=== PATIENT | female | born 1945 | race Caucasian/White ===

== ENCOUNTER 2019-12-22 10:20 | Outpatient (CLI) | payer MEDICARE, MEDICAID, SELFPAY ==
--- NOTE | ~2019-12-22 | XR_ITS ---
EXAMINATION: XR ankle LT min 3V DATE: 12/22/2019 10:38 INDICATION: Left ankle pain TECHNIQUE: Anteroposterior, lateral, mortise, and additional oblique view of the ankle were obtained. COMPARISON: None. FINDINGS: . There is no fracture, dislocation, or subluxation. The bones, soft tissues, and joint spa braden are normal. IMPRESSION: 1. No acute osseous abnormality. Reviewed, dictated and finalized at location A.
--- NOTE | ~2019-12-22 | US_ITS ---
EXAMINATION: US venous doppler [facility] DATE: 12/22/2019 11:11 INDICATION: Left leg pain TECHNIQUE: Darnell scale images without and with compression and Doppler images of the left lower extrem ity veins were obtained. COMPARISON: None. FINDINGS: The left common femoral vein, profunda femoral vein, femoral vein, popliteal vein, peroneal trunk, posterior tibial veins, and greater saphenous vein are patent. There are superficial left leg veins which are patent and compressible in the area of palpable concern. IMPRESSION: 1. Patent left lower extremity veins. No evidence of deep venous thrombosis. Reviewed, dictated and finalized at location A.
== END 2019-12-22 10:21 | disposition home or self-care (01) ==
LOC: CHSIMG 10:24
PROVIDERS: PCP Family Medicine; Visit Provider Family Medicine
DX: M79.662 Pain in left lower leg (principal); M25.579 Pain in unspecified ankle and joints of unspecified foot
CPT/HCPCS: 73610; 93971

== ENCOUNTER 2020-01-19 12:36 | Inpatient (IN) | payer MEDICARE, MEDICAID, SELFPAY ==
--- NOTE | ~2020-01-19 | CT_ITS ---
EXAMINATION: CTA [facility] DATE: 01/21/2020 13:17 INDICATION: Significant peripheral arterial occlusive disease to the left lower limb with nonhealing arterial ulcer. TECHNIQUE: Computed tomographic angiography (CTA) of the pelvis, and both lower extremities was perfo rmed with 150 mL Omnipaque 350 intravenous contrast. Automated exposure control and iterative reconst ruction technique were employed. The dose-length product was 440 mGy-cm. COMPARISON: None. FINDINGS: PELVIC VASCULATURE: No appreciable atherosclerotic plaque or stenosis in the bilateral common and external iliac arteries . RIGHT LOWER EXTREMITY: No evident atherosclerotic plaque or hemodynamically significant stenosis along the arteries of the r ight lower limb with three-vessel runoff to the ankle. LEFT LOWER EXTREMITY: No evident atherosclerotic plaque or hemodynamically significant stenosis along the arteries of the left lower limb with three-vessel runoff below the ankle.. ADDITIONAL FINDINGS: Prominent and relatively symmetric scattered muscular atrophy involving the bilateral gluteus minimus , left gluteus medius, bilateral quadriceps muscles most prominently the vastus lateralis muscles, bi lateral hamstring muscles and medial heads of the bilateral gastrocnemius muscles. There is soft tiss ue swelling about the left ankle with prominent stranding and catheters fat pad. There is contrast-en hancement of early draining veins at the left ankle and distal lower leg likely related to hyperemia associated with reported cellulitis. No abscess. No evident cortical erosions to suggest osteomyeliti s. Left total knee arthroplasty. No evident knee or ankle joint effusions. IMPRESSION: 1. No evident atherosclerotic plaque or stenosis in the visualized pelvis or bilateral lower limbs w ith bilateral three-vessel runoff to the ankle. Reviewed, dictated and finalized at location A. IMPRESSION: 1. No evident atherosclerotic plaque or stenosis in the visualized pelvis or b ilateral lower limbs with bilateral three-vessel runoff to the ankle.
--- NOTE | ~2020-01-19 | XR_ITS ---
EXAMINATION: XR ankle LT min 3V DATE: 01/21/2020 15:04 INDICATION: Nonhealing ulcer at the lateral left ankle TECHNIQUE: Anteroposterior, oblique, mortise, and lateral views of the left ankle were obtained. COMPARISON: 12/22/2019 FINDINGS: Bone alignment is normal. No fracture. No cortical erosions or periosteal reaction to suggest osteomy elitis. Small bone island at the posterior aspect of the distal tibia. Joint spaces appear relatively preserved. No ankle joint effusion. Increased density in the region of Kager fat pad suggesting soft tissue edema. No evident soft tissue gas. IMPRESSION: 1. No acute osseous abnormality. Specifically no cortical erosions or periosteal reaction to suggest osteomyelitis. Reviewed, dictated and finalized at location A. IMPRESSION: 1. No acute osseous abnormality. Specifically no cortical erosions or periostea l reaction to suggest osteomyelitis.
--- NOTE | ~2020-01-19 | US_ITS ---
EXAMINATION: US venous doppler [facility] DATE: 01/19/2020 13:22 INDICATION: Left lower limb pain. TECHNIQUE: Grayscale ultrasound images without and with compression and Doppler ultrasound images of the left lower extremity veins were obtained. COMPARISON: Ultrasound 12/22/2019 FINDINGS: The visualized portions of left common femoral vein, profunda (deep) femoral vein, femoral vein, popl iteal vein, peroneal veins, posterior tibial veins, and greater saphenous vein outflow are patent. IMPRESSION: 1. No deep venous thrombosis. Reviewed, dictated and finalized at location A.
--- NOTE | ~2020-01-19 | US_ITS ---
EXAMINATION: US arterial duplex LE DATE: 01/20/2020 13:12 INDICATION: Peripheral arterial disease. TECHNIQUE: Segmental pressures and plethysmographic and Doppler waveforms of the brachial and lower e xtremity arteries were obtained. COMPARISON: None. FINDINGS: Right and left brachial artery pressures of 160 mm Hg and 162 mm Hg, respectively, are concordant (no rmal difference <= 30 mmHg). The right high-thigh pressure index is 1.17 (normal > 1.2). The right ankle-brachial index (RAND) is 1 .29 (normal >= 0.9-1.0). The right great toe-brachial index (TBI) is 0.67 (normal >= 0.65). The right lower extremity segmental pressure gradients are normal (normal gradients <= 20-30 mmHg between delfina cent levels on the same leg or the same levels on the two legs). Arterial Doppler waveforms are bipha sic from common femoral artery to the ankle. The left high-thigh pressure index is 1.26. The left RAND is 1.16. The left TBI is 0.49. The left lowe r extremity segmental pressure gradients are normal. Arterial Doppler waveforms are biphasic from com mon femoral artery to the ankle. IMPRESSION: 1. Mildly decreased left-sided TBI and normal left-sided RAND, consistent with left-sided arterial occ lusive disease. Note that RAND may be overestimated if arteries are calcified. Reviewed, dictated and finalized at location A. IMPRESSION: 1. Mildly decreased left-sided TBI and normal left-sided RAND, consistent with l eft-sided arterial occlusive disease. Note that RAND may be overestimated if art eries are calcified.
--- NOTE | ~2020-01-19 | NM_ITS ---
EXAMINATION: NM bone 3 phase DATE: 01/20/2020 16:30 INDICATION: Cellulitis at the posterior left calf and at the left ankle TECHNIQUE: The 3.9 mCi Tc-99m HDP by intravenous route. Scintigrams of the bilateral lower legs were obtained in angiographic, blood pool, and delayed phases. COMPARISON: Lower extremity CTA dated 01/21/2020 FINDINGS: Asymmetric diffuse increased soft tissue activity on the angiographic an immediate blood pool images throughout the left lower leg. On delayed images there is a photopenic defect at the right knee consi stent with a total knee arthroplasty. No suspicious foci of delayed bone uptake to suggest osteomyeli tis. Of note the distalmost tibia and fibula including the medial and lateral malleoli are excluded f rom the [id number]. IMPRESSION: 1. Asymmetric increased soft tissue uptake throughout the left lower leg consistent with inflammatio n of provided history of cellulitis. No discrete foci of abnormal bone uptake to suggest osteomyeliti s however the region of the medial and lateral malleoli are excluded from the [id number]. Reviewed, dictated and finalized at location A. IMPRESSION: 1. Asymmetric increased soft tissue uptake throughout the left lower leg consi stent with inflammation of provided history of cellulitis. No discrete foci of abnormal bone uptake to suggest osteomyelitis however the region of the medial and lateral malleoli are excluded from the [id number].
--- NOTE | ~2020-01-19 | US_ITS ---
EXAMINATION: US carotid duplex BI DATE: 01/20/2020 13:13 INDICATION: Vision disturbance. Headache. TECHNIQUE: Grayscale, color Doppler, and pulsed Doppler images of the cervical carotid arteries were obtained. The degree of vessel stenosis is placed in one of the following categories: normal, <50%, 5 0-69%, >=70% but less than near-occlusion, near-occlusion, or total occlusion. Note that percent sten osis relative to normal distal artery lumen diameter is indirectly measured from velocity measurement s as described by King, et al. Radiology 2003; 229:340-346. COMPARISON: None. FINDINGS: RIGHT: The right common carotid artery (CCA) peak systolic velocity (PSV) is 74 cm/s. The right internal car otid artery (ICA) PSV is 85 cm/s. The right ICA end-diastolic velocity (EDV) is 28 cm/s. The right IC A/CCA PSV ratio is 1.2. Grayscale and color Doppler images yield an estimate of <50% diameter reducti on from plaque in the ICA. There is antegrade flow in the right vertebral artery. LEFT: The left CCA PSV is 59 cm/s. The left ICA PSV is 48 cm/s. The left ICA EDV is 15 cm/s. The left ICA/C CA PSV ratio is 0.8. Grayscale and color Doppler images yield an estimate of <50% diameter reduction from plaque in the ICA. There is antegrade flow in the left vertebral artery. IMPRESSION: 1. <50% stenosis in the right internal carotid artery. 2. <50% stenosis in the left internal carotid artery. Reviewed, dictated and finalized at location A.
[2020-01-19 12:57] VITALS: BP 152/78; PULSE 77; RESP 24; TEMP 37.1; O2SAT 98
[2020-01-19 13:53] LABS: Basophils Absolute Auto 0.03 K/mm3 (0.00-0.10); Basophils Percent Auto 0.4 % (0.0-1.0); Eosinophils Absolute Auto 0.03 K/mm3 (0.02-0.50); Eosinophils Percent Auto 0.4 % (1.0-6.0); Hematocrit 36.3 % (35.0-42.0); Immature Granulocyte Absolute 0.03 K/mm3 (0.00-0.00); Immature Granulocyte Percent A 0.4 % (0.0-0.0); Lymphocytes Absolute Auto 0.56 K/mm3 (1.10-4.50); Lymphocytes Percent Auto 6.8 % (18.0-42.0); Mean Corpuscular HGB Conc 33.1 g/dL (32.0-36.0); Mean Corpuscular Hemoglobin 33.4 pg (27.0-31.0); Mean Corpuscular Volume 101.1 fL (78.0-102.0); Mean Platelet Volume 9.4 fl (9.2-11.8); Monocytes Absolute Auto 0.56 K/mm3 (0.10-0.90); Monocytes Percent Auto 6.8 % (2.0-11.0); Neutrophils Percent Auto 85.2 % (50.0-70.0); Platelet Count Result 258 K/mm3 (150-420); Red Blood Count 3.59 M/mm3 (4.20-5.40); Red Cell Distribution Width 13.2 % (11.6-14.4); White Blood Count 8.2 K/mm3 (4.8-10.8)
[2020-01-19] MEDS: CLINDAMYCIN 600 MG/D5W 50 ML 600 MG/50 ML PIGGYBACK 100 MG IVPB ×2 (13:57→21:30)
[2020-01-19 14:07] LABS: Alanine Aminotransferase 31 U/L (14-59); Alkaline Phosphatase 100 U/L (46-116); Anion Gap 16.1 mmol/L (7-16); Aspartate Amino Transferase 29 U/L (15-37); Bilirubin,Total 0.3 mg/dL (0.00-1.00); Blood Urea Nitrogen 26 mg/dL (7-18); Calcium 9.6 mg/dL (8.5-10.1); Carbon Dioxide 25 mmol/L (21-32); Chloride 103 mmol/L (98-108); Estimated CRCL calculation 49 ml/min; Estimated Glomerular Filt Rate > 60; Glucose 93 mg/dL (70-99); Osmolality Calculated 294 mOsm/kg (285-295); Potassium 4.1 mmol/L (3.5-5.1); Sodium 140 mmol/L (136-145); Total Protein 7.4 g/dL (6.4-8.2)
[2020-01-19 14:09] LABS: Lactic Acid 0.8 mmol/L (0.4-2.0)
--- NOTE | 2020-01-19 14:29 | ED.GENADULT ---
HPI - General Adult General Chief complaint: Extremity Injury, Lower Stated complaint: ambulance Source: patient and EMS Mode of arrival: EMS Limitations: no limitations History of Present Illness HPI narrative: This is a 74-year-old female that presents via EMS with left lower extremity pain with calf tenderness and left lower extremity redness warmth and tenderness, has a history of a wound to her left lower extremity which appears to be healing well although despite being on p.o. clindamycin the patient has some left leg continues to be warm red and swollen and tender. Patient while here in the emergency department had a venous Doppler which showed no acute DVT. Patient currently is afebrile no shortness of breath. The patient has a history of hypothyroidism and COPD and rheumatoid arthritis. Onset (ago): day(s) Location: left and lower extremity Severity: mild Quality: aching Relieving factors: none Exacerbating factors: none Associated symptoms: denies other symptoms Related Data Home Medications Medication Instructions Recorded Confirmed calcium carbonate 600 mg calcium 600 mg PO BID 08/02/19 01/19/20 (1,500 mg) tablet cholecalciferol (vitamin D3) 10 400 unit PO BID cap 08/02/19 01/19/20 mcg (400 unit) capsule folic acid 1 mg tablet 1 mg PO DAILY 08/02/19 01/19/20 meloxicam 15 mg tablet 15 mg PO DAILY 08/02/19 01/19/20 methotrexate sodium 2.5 mg tablet 10 mg PO BID tablet 08/02/19 01/19/20 prednisone 2.5 mg tablet 2.5 mg PO DAILY 08/02/19 01/19/20 ranitidine HCl 150 mg capsule 150 mg PO BID cap 08/02/19 01/19/20 triamcinolone acetonide 0.1 % 1 applic TOPICAL DAILY gm 08/02/19 01/19/20 topical cream Allergies Allergy/AdvReac Type Severity Reaction Status Date / Time amoxicillin [Augmentin] Allergy Intermediate Unknown Verified 01/13/20 15:24 clavulanic acid [Augmentin] Allergy Intermediate Unknown Verified 01/13/20 15:24 Sulfa (Sulfonamide Allergy Unknown Unknown Verified 01/13/20 15:24 Antibiotics) Sulfonamides Allergy Intermediate Unknown Uncoded 09/28/19 11:01 Review of Systems Review of Systems: All systems reviewed & are unremarkable except as noted in HPI and below PMFSH Past Medical History Medical History Cervical arthritis Chronic low back pain Hypothyroidism Iron deficiency anemia Osteopenia Rheumatoid arthritis Family History Family History Mother Hypertension Brother Hypertension Other Diabetes mellitus Social History Social History Smoking status: Never smoker Alcohol intake: never Exam Const: General: no acute distress Orientation/consciousness: patient oriented x3 HENMT: Head: normal to inspection Eyes: Conjunctivae: conjunctivae normal Pupils: Equal, round and reactive pupils present Neck: Neck: normal visual inspection Chest: Chest palpation & inspection: normal inspection of the chest Resp: Effort & Inspection: normal respiratory effort Cardio: Rate: regular rate Rhythm: regular rhythm GI: GI Palp: Yes Soft to palpation Skin: General skin exam: normal color Rashes: no rashes Wounds: wounds noted Other: Wound on her left Achilles area appears closed with no drainage Um although the lower extremity is warm red and tender to touch with some calf tenderness with palpation Extrem: General: normal to inspection Psych: Appearance: grossly normal Mental Status: mental status grossly normal Course Vital Signs Vital signs: Vital Signs Temperature 37.1 C 01/19/20 12:57 Pulse Rate 77 01/19/20 12:57 Respiratory Rate 24 H 01/19/20 12:57 Blood Pressure 152/78 H 01/19/20 12:57 Pulse Oximetry 98 01/19/20 12:57 Temperature 37.1 C 01/19/20 12:57 Pulse Rate 77 01/19/20 12:57 Respiratory Rate 24 H 01/19/20 12:57 Blood Pressure 152/78 H 01/19/20 12:
--- NOTE | 2020-01-19 15:00 | PC.NURSE ---
Called for bed on second floor, pt to go to room 227.
[2020-01-19 15:02] VITALS: BP 151/69; PULSE 97; O2SAT 98
--- NOTE | 2020-01-19 15:45 | PC.NURSE ---
No change in pt status, pt resting comfortably on stretcher. Awaiting to give report, RN unavailable.
--- NOTE | 2020-01-19 16:00 | PM.IMHP ---
H&P: HPI History of Present Illness Chief complaint: ambulance Narrative: Laquita Mcfarlane is a 74 year old female admitted today via ambulance complaining of lower extremity injury to left leg. Laquita presented via EMS with left lower extremity pain with calf tenderness and left lower extremity redness warmth and tenderness. She has a history of a wound to her left lower extremity which appeared to be healing well. But despite taking her oral clindamycin that she was started on Thursday evening, the patient's left leg continues to be warm, red, swollen and tender. At admission today, the emergency department had a venous Doppler which showed no acute DVT. Patient currently is afebrile with no shortness of breath. The patient has a history of hypothyroidism, COPD and rheumatoid arthritis. The patient claimed that her left calf was extremely swollen and her left leg was extremely swollen and sore the day before, but at this time her left leg is actually very tight and small. She describes her pain as mild and achy, except to the touch within the pain becomes worse and severe. She does have a significant history of rheumatoid arthritis and has had multiple episodes of wounds that seem to heal and then not heal to this area and this leg. This leg also appears to be much smaller in size particularly around the left ankle and left calf lower calf area; Her left lower leg almost has a contracted or scleroderma appearance to it. I also have noticed that her pedal pulse is is significantly weaker on the left, 1+; verses the 3-4+ bounding pulse that I have palpated on the right pedal pulse. There is also no hair growth noted to this left lower extremity. Due to concerns for osteomyelitis and or septic arthritis, I have ordered a nuclear medicine bone scan of 3 phase, as well as an arterial Doppler study on both lower extremities, will continue her on IV clindamycin at this time for the next 2-3 days to see if she improves. She may need IV vanc. There is no wound or leg drainage or open area to culture so we will have to go off of blood and urine cultures. She denies any history of smoking, she is not on blood thinner anticoagulants at this time, she is not on an oral statin. Her white count is 8.2, her hemoglobin is 12, her hematocrit is 36, her platelets are 258, her potassium 4.1, her calcium 9.6, her lactic acid 0.8, her glucose 93. She was admitted with a diagnosis of cellulitis to the left lower extremity, with differential diagnoses including PA D, PVD, osteomyelitis, septic arthritis, scleroderma. Review of Systems Review of Systems: All systems reviewed & are unremarkable except as noted in HPI and below Constitutional: Constitutional: Reports as per HPI, Reports body ache(s), Denies difficulty sleeping, Denies excessive sweating, Denies fatigue, Denies headache(s), Denies increased appetite, Denies lethargy, Denies snoring, Reports weakness and Denies weight gain Eyes: Eyes: Reports as per HPI, Denies exophthalmos, Denies diplopia, Denies floaters and Denies loss of peripheral vision ENT: Reports as per HPI, Reports Normal hearing present, Denies dysphagia, Denies facial pain, Denies headache(s), Denies epistaxis, Denies nasal congestion, Denies nasal discharge, Denies odynophagia and Denies tinnitus Cardiovascular: Cardiovascular: Reports as per HPI Respiratory: Respiratory: Denies snoring Gastrointestinal: Gastrointestinal: Denies odynophagia Neurologic: Denies headache(s) Endocrine: Endocrine: Denies excessive sweating PMFSH Past Medical History Medical History Cervical arthritis Chronic low back pain Hypothyroidism Iron deficiency anemia Osteopenia Rheumatoid arthritis Family History Family History Mother Hypertension Brother Hypertension Other Diabetes mellitus Social History Social History (Reviewed 01/19/20
[2020-01-19 16:13] VITALS: BP 152/77; PULSE 75; RESP 16; O2SAT 97
[2020-01-19 16:39] VITALS: BMI 18.6
[2020-01-19 16:40] VITALS: BP 143/68; PULSE 72; RESP 18; TEMP 36.7; O2SAT 96
--- NOTE | 2020-01-19 16:43 | ADMGEN ---
This patient, Laquita Mcfarlane, was admitted to 2nd Floor Room 227-2. Patient/family oriented to hospital policies and general routines including ID bracelet, bed and alarms, visiting hours, pain management, procedures, bathroom and other care routines, personal items, smoking policy, room service/diet, and visiting hours. Valuables list has been completed. Information on how to activate the Rapid Response Team has been discussed. Patient/Family are encouraged to report perceived risks to care and to ask questions if they do not understand what they are told or what they should do.
[2020-01-19] MEDS: CHOLECALCIFEROL 400 UNITS TABLET (VIT D) PO (17:58)
[2020-01-19] MEDS: SODIUM CHLORIDE 0.9% IV 1,000 ML 100 ML IV CONT (17:58)
[2020-01-19 18:53] LABS: Thyroid Stimulating Hormone Reflex 0.73 u/IU/mL (0.36-3.74)
[2020-01-19 20:03] LABS: Uric Acid 4.8 mg/dL (2.6-6.0)
[2020-01-19] MEDS: FAMOTIDINE 20 MG TABLET PO (21:00)
[2020-01-19] MEDS: ONDANSETRON INJ 4 MG/2 ML VIAL IV PUSH (23:24)
[2020-01-19 23:30] VITALS: BP 151/72; PULSE 56; RESP 20; TEMP 36.9; O2SAT 96
[2020-01-20 04:00] VITALS: BP 140/61; PULSE 56; RESP 18; TEMP 36.6; O2SAT 96
[2020-01-20] MEDS: CLINDAMYCIN 600 MG/D5W 50 ML 600 MG/50 ML PIGGYBACK 100 MG IVPB ×3 (05:07→21:05)
[2020-01-20] MEDS: SODIUM CHLORIDE 0.9% IV 1,000 ML 100 ML IV CONT (05:07)
[2020-01-20] MEDS: LEVOTHYROXINE SODIUM 88 MCG TABLET PO (05:08)
[2020-01-20] MEDS: ONDANSETRON INJ 4 MG/2 ML VIAL IV PUSH (05:08)
[2020-01-20 05:57] LABS: Add Urine Microscopic? NO; Appearance Urine Clear (Clear); Bilirubin Urine Negative (Negative); Blood Urine Negative (Negative); Color Urine Yellow (Yellow); Glucose Urine UA Negative (Negative); Ketones Urine Negative (Negative); Leukocyte Esterase Ur Negative LEU/UL (Negative); Nitrate Urine Negative (Negative); Protein Urine Negative (Negative); Urobilinogen Urine 0.2 mg/dL (0.2-1.0)
[2020-01-20 07:28] LABS: Basophils Absolute Auto 0.02 K/mm3 (0.00-0.10); Basophils Percent Auto 0.4 % (0.0-1.0); Eosinophils Absolute Auto 0.15 K/mm3 (0.02-0.50); Eosinophils Percent Auto 2.8 % (1.0-6.0); Hematocrit 33.3 % (35.0-42.0); Hemoglobin 10.8 g/dL (11.7-13.8); Immature Granulocyte Absolute 0.03 K/mm3 (0.00-0.00); Immature Granulocyte Percent A 0.6 % (0.0-0.0); Lymphocytes Absolute Auto 0.93 K/mm3 (1.10-4.50); Lymphocytes Percent Auto 17.1 % (18.0-42.0); Mean Corpuscular HGB Conc 32.4 g/dL (32.0-36.0); Mean Corpuscular Hemoglobin 33.1 pg (27.0-31.0); Mean Corpuscular Volume 102.1 fL (78.0-102.0); Mean Platelet Volume 9.2 fl (9.2-11.8); Monocytes Absolute Auto 0.93 K/mm3 (0.10-0.90); Monocytes Percent Auto 17.1 % (2.0-11.0); Neutrophils Absolute Auto 3.4 K/mm3 (1.7-7.2); Platelet Count Result 218 K/mm3 (150-420); Red Blood Count 3.26 M/mm3 (4.20-5.40); Red Cell Distribution Width 13.2 % (11.6-14.4); White Blood Count 5.4 K/mm3 (4.8-10.8)
[2020-01-20 07:40] LABS: Alanine Aminotransferase 27 U/L (14-59); Albumin Level 3.1 g/dL (3.4-5.0); Alkaline Phosphatase 77 U/L (46-116); Anion Gap 12.8 mmol/L (7-16); Aspartate Amino Transferase 23 U/L (15-37); Bilirubin,Total 0.4 mg/dL (0.00-1.00); Blood Urea Nitrogen 20 mg/dL (7-18); Calcium 8.4 mg/dL (8.5-10.1); Carbon Dioxide 25 mmol/L (21-32); Chloride 108 mmol/L (98-108); Estimated CRCL calculation 50 ml/min; Estimated Glomerular Filt Rate > 60; Glucose 86 mg/dL (70-99); Osmolality Calculated 295 mOsm/kg (285-295); Potassium 3.8 mmol/L (3.5-5.1); Sodium 142 mmol/L (136-145)
[2020-01-20 07:42] LABS: Cholesterol 182 mg/dL (0-200); HDL Direct 79 mg/dL (40-60); LDL Cholesterol Calculated 93 mg/dL (<130); Triglycerides 52 mg/dL (0-150)
[2020-01-20 08:00] VITALS: BP 150/67; PULSE 66; RESP 18; TEMP 36.8; O2SAT 98
[2020-01-20] MEDS: FOLIC ACID 1 MG TABLET PO (09:04)
[2020-01-20] MEDS: predniSONE 5 MG TABLET 2.5 MG PO (09:04)
[2020-01-20] MEDS: CHOLECALCIFEROL 400 UNITS TABLET (VIT D) PO ×2 (09:04→17:27)
[2020-01-20] MEDS: CALCIUM CARBONATE (OSCAL) 500 MG TABLET PO ×2 (09:04→17:27)
[2020-01-20] MEDS: FAMOTIDINE 20 MG TABLET PO ×2 (09:04→21:05)
[2020-01-20] MEDS: TRIAMCINOLONE ACET 0.1% CREAM 15 GM TUBE 1 APPLIC TOPICAL (09:05)
[2020-01-20] MEDS: MELOXICAM 7.5 MG TABLET 15 MG PO (09:05)
--- NOTE | 2020-01-20 10:29 | ECHO_ITS ---
Patient Info Name: Laquita Mcfarlane Age: 74 years : 1945 Gender: Female Ht: 66 in Wt: 115 lbs BSA: 1.55 m2 Heart Rhythm: Sinus Rhythm Technical Quality: Fair Exam Date: 01/20/2020 12:09 PM Exam Location: [facility] Patient Status: Inpatient Admit Date: 01/19/2020 Staff Ordering Physician: Anali Guadalupe NP Chief Lock Operator: Bethany Bonner RDCS Attending Provider: Casey Puri MD Referring Physician: Collins RODRIGUEZ; Exam Type: CA echo doppler color flow Study Info Indications R00.1 - Bradycardia, unspecified Complete two-dimensional, color flow and Doppler transthoracic echocardiogram is performed. Strain analysis performed. History/Risk Factors Hypertension: No Dyslipidemia: No Congenital Heart Disease (CHD): No Peripheral Arterial Disease (PAD): No Myocardial Infarction (UT): No Chronic Lung Disease: No Obesity: No Renal Disease: No Coronary Artery Disease (CAD) No Congestive Heart Failure (CHF): No Cardiomyopathy/LV Systolic Dysfunction: No Diabetes Mellitus: No COPD: No Tobacco Use: Never Cerebrovascular Disease: No Family History: Diabetes Mellitus Deep Vein Thrombosis (DVT): None Dialysis: None Frailty Scale (CSHA): 6: Moderately Frail Summary 1. Left ventricular chamber dimension is normal. 2. Left ventricular systolic function is normal, estimated at 60-65%. 3. The left ventricular diastolic function is grade I diastolic dysfunction. 4. E/e' 7 is not elevated. 5. Global longitudinal strain is normal at -19.6%. 6. There is moderate aortic valve sclerosis. 7. There is mild aortic valve stenosis with a peak velocity of 209 cm/s, mean gradient of 10 mmHg, and aortic valve area of 1.9 cm2. 8. There is mild to moderate aortic valve regurgitation. 9. There is trace mitral valve regurgitation. 10. There is mild to moderate tricuspid valve regurgitation. 11. No pulmonary hypertension, estimated pulmonary arterial systolic pressure is 20 mmHg. Left Ventricle E/e' 7 is not elevated. Global longitudinal strain is normal at -19.6%. Left ventricular chamber dimension is normal. Left ventricular systolic function is normal, estimated at 60-65%. The left ventricular diastolic function is grade I diastolic dysfunction. Right Ventricle Right ventricular chamber dimension is normal. Right ventricular systolic function is normal. Left Atria Left atrial chamber dimension is normal. Right Atria Right atrial chamber dimension is normal. Aortic Valve The aortic valve is trileaflet. There is moderate aortic valve sclerosis. There is mild aortic valve stenosis with a peak velocity of 209 cm/s, mean gradient of 10 mmHg, and aortic valve area of 1.9 cm2. There is mild to moderate aortic valve regurgitation. Pulmonic Valve There is no pulmonic regurgitation. Mitral Valve There is no mitral valve stenosis. There is trace mitral valve regurgitation. Tricuspid Valve There is mild to moderate tricuspid valve regurgitation. No pulmonary hypertension, estimated pulmonary arterial systolic pressure is 20 mmHg. Pericardium/Pleural There is no pericardial effusion. Inferior Vena Cava Normal inferior vena cava with >50% collapse upon inspiration consistent with normal right atrial pressure, 5 mmHg. Aorta The aortic root size at the sinus of Valsalva is normal. Left Ventricular Outflow Tract
--- NOTE | 2020-01-20 11:10 | PC.NURSE ---
In imaging getting testing done
--- NOTE | 2020-01-20 12:10 | PC.NURSE ---
Remains in imaging getting testing
[2020-01-20 13:41] VITALS: RESP 18
--- NOTE | 2020-01-20 13:41 | PC.NURSE ---
Lunch tray to patient, not to return back to imaging until 2649
--- NOTE | 2020-01-20 14:28 | PM.IMPN ---
Progress Note: A&P Assessment and Plan (1) Atherosclerotic PVD with ulceration: Code(s): I70.209 - Unspecified atherosclerosis of [place] arteries of extremities, unspecified extremity; L98.499 - Non-pressure chronic ulcer of skin of other sites with unspecified severity <Anali Guadalupe NP - Last Filed: 01/20/20 16:14> Status: Acute <Anali Guadalupe NP - Last Filed: 01/20/20 16:14> Assessment and Plan: ED ordered a venous Doppler of LEFT only to rule out DVT - no DVT noted ordered an arterial Doppler study to rule in or out PAD - RESULTS are: The right high-thigh pressure index is 1.17 (normal > 1.2). The right ankle-brachial index (RAND) is 1.29 (normal >= 0.9-1.0). The right great toe-brachial index (TBI) is 0.67 (normal >= 0.65). The left high-thigh pressure index is 1.26. The left RAND is 1.16. The left TBI is 0.49. IMPRESSION: 1. Mildly decreased left-sided TBI and normal left-sided RAND, consistent with left-sided arterial occlusive disease. Note that RAND may be overestimated if arteries are calcified. Ordered an MRA of bilateral lower extremities with and without contrast for tomorrow morning. PT and OT ordered , and due to her possible left-sided PAD or occlusive disease she may benefit from Vascular physical therapy. checking lipid panel in the morning may benefit from having a daily statin, a daily aspirin, and Cilostazol started if PAD evident ECHO results are pending. Carotid Doppler results showed no significance stenosis of the right or left ICAs <Anali Guadalupe NP - Last Filed: 01/20/20 16:14> (2) Cellulitis: Qualifiers: Laterality: left Site of cellulitis: extremity Site of cellulitis of extremity: lower extremity Qualified Code(s): L03.116 - Cellulitis of left lower limb <Anali Guadalupe NP - Last Filed: 01/20/20 16:14> Code(s): L03.90 - Cellulitis, unspecified <Anali Guadalupe NP - Last Filed: 01/20/20 16:14> Status: Acute <Anali Guadalupe NP - Last Filed: 01/20/20 16:14> Assessment and Plan: ordered a nucleolar medicine bone scan with 3 phases to rule in or out osteomyelitis - in process - no results yet will continue IV clindamycin for another 1-3 days to see if wound improves, if not may need to switch to IV vanc patient denies any history of MRSA at this time no open area or evidence of drainage at this time in order to culture the wound will need to depend on blood cultures and urine cultures elevate use warm compresses or ice for comfort as needed ordered daily ESR and CRP levels <Anali Guadalupe NP - Last Filed: 01/20/20 16:14> (3) Rheumatoid arthritis: Code(s): M06.9 - Rheumatoid arthritis, unspecified <Anali Guadalupe NP - Last Filed: 01/20/20 16:14> Status: Acute <Anali Guadalupe NP - Last Filed: 01/20/20 16:14> Assessment and Plan: PT and OT evaluation ordered check calcium levels and vitamin-D levels and replenish as needed treat pain with Tylenol and or Motrin and/or lidocaine patches as needed use ice or warm compresses or heating pads as needed for comfort rule out gout, uric acid testing, uric acid level was 4.8 and within normal limits ordered daily ESR and CRP levels <Anali Guadalupe NP - Last Filed: 01/20/20 16:14> Subjective Date/time seen: 01/20/20 14:28 Laquita was doing well this morning when I went to see her. She was resting in bed comfortably. She had no complaints overnight or this morning. She was scheduled to have an RAND today, and echo, and carotid Dopplers completed today. Her left lower extremity today was much less reddened than it was yesterday, with the area remaining pink in color today. She continues to have pain at that location of her left lower extremity. And it continues to be quite warm to the touch. We will give the IV clindamycin another 24 h
[2020-01-20 15:43] VITALS: BP 136/61; PULSE 70; RESP 18; TEMP 37.3; O2SAT 95
--- NOTE | 2020-01-20 15:45 | PC.NURSE ---
returned to imaging
[2020-01-20 16:54] LABS: Iron 71 ug/dL (50-170); Percent Iron Saturation 28 % (12-57); Vitamin B12 569 pg/mL (193-986)
[2020-01-20 16:56] LABS: CRP < 0.2 mg/dL (0.0-0.9); Folic Acid > 20.0 ng/mL (8.6->20)
--- NOTE | 2020-01-20 17:07 | PC.NURSE ---
returned from imaging, up to commode, tolerated well, still unsteady on feet
[2020-01-20] MEDS: ENOXAPARIN 40 MG/0.4 ML SYRINGE SUB-Q (17:27)
[2020-01-20 17:46] LABS: Erythrocyte Sedimentation Rate 17 mm/hr (0-20)
[2020-01-20] MEDS: ACETAMINOPHEN 325 MG TABLET 650 MG PO (19:23)
--- NOTE | 2020-01-20 23:55 | PC.NURSE ---
Sleeping; head of bed elevated 20 degrees; Skin pink, respirations easy/unlabored. No distress noted.
[2020-01-21] VITALS: BP 130/47; PULSE 60; RESP 18; TEMP 36; O2SAT 98
--- NOTE | 2020-01-21 00:30 | PC.NURSE ---
Complains of feet being hot; No increase in redness to left leg. Patient took off non-skid socks, states too hot.
--- NOTE | 2020-01-21 04:35 | PC.NURSE ---
States would like Synthroid now as IV antiobiotic gives he a funny taste in her mouth and she is afraid it will make her sick on an empty stomach. Request Tylenol for arthritic pain to shoulder, neck and back states caused by all those tests I took yesterday
[2020-01-21] MEDS: LEVOTHYROXINE SODIUM 88 MCG TABLET PO (04:38)
[2020-01-21] MEDS: ACETAMINOPHEN 325 MG TABLET 650 MG PO (04:40)
[2020-01-21] MEDS: CLINDAMYCIN 600 MG/D5W 50 ML 600 MG/50 ML PIGGYBACK 100 MG IVPB ×2 (05:39→13:20)
[2020-01-21 05:41] LABS: Hematocrit 34.4 % (35.0-42.0); Hemoglobin 11.1 g/dL (11.7-13.8); Mean Corpuscular HGB Conc 32.3 g/dL (32.0-36.0); Mean Corpuscular Hemoglobin 32.8 pg (27.0-31.0); Mean Corpuscular Volume 101.8 fL (78.0-102.0); Mean Platelet Volume 9.6 fl (9.2-11.8); Platelet Count Result 222 K/mm3 (150-420); Red Blood Count 3.38 M/mm3 (4.20-5.40); Red Cell Distribution Width 13.2 % (11.6-14.4); White Blood Count 5.3 K/mm3 (4.8-10.8)
[2020-01-21 05:53] LABS: Anion Gap 12.2 mmol/L (7-16); Blood Urea Nitrogen 21 mg/dL (7-18); Calcium 8.7 mg/dL (8.5-10.1); Carbon Dioxide 27 mmol/L (21-32); Chloride 104 mmol/L (98-108); Estimated CRCL calculation 42 ml/min; Estimated Glomerular Filt Rate > 60; Glucose 78 mg/dL (70-99); Osmolality Calculated 290 mOsm/kg (285-295); Potassium 4.2 mmol/L (3.5-5.1); Sodium 139 mmol/L (136-145)
[2020-01-21 06:03] LABS: CRP < 0.2 mg/dL (0.0-0.9)
[2020-01-21 06:37] LABS: Erythrocyte Sedimentation Rate 26 mm/hr (0-20)
[2020-01-21 08:00] VITALS: BP 136/66; PULSE 61; RESP 16; TEMP 36.6; O2SAT 97
[2020-01-21] MEDS: FAMOTIDINE 20 MG TABLET PO (08:45)
[2020-01-21] MEDS: CHOLECALCIFEROL 400 UNITS TABLET (VIT D) PO (08:45)
[2020-01-21] MEDS: CALCIUM CARBONATE (OSCAL) 500 MG TABLET PO (08:45)
[2020-01-21] MEDS: FOLIC ACID 1 MG TABLET PO (08:45)
[2020-01-21] MEDS: predniSONE 5 MG TABLET 2.5 MG PO (08:45)
[2020-01-21] MEDS: MELOXICAM 7.5 MG TABLET 15 MG PO (08:46)
[2020-01-21] MEDS: TRIAMCINOLONE ACET 0.1% CREAM 15 GM TUBE 1 APPLIC TOPICAL (08:46)
--- NOTE | 2020-01-21 09:18 | ECG_ITS ---
Measurements Intervals [place] Rate: 58 P: 68 VT: 170 QRS: -18 QRSD: 85 T: 29 QT: 434 QTc: 427 Interpretive Statements SINUS BRADYCARDIA WITH MARKED SINUS ARRHYTHMIA ANTEROSEPTAL INFARCT, AGE INDETERMINATE ABNORMAL ECG Electronically Signed On 01-23-2020 7:33:34 CDT by Patricio Bowers D.O.
--- NOTE | 2020-01-21 10:26 | PM.DS ---
DS: Diagnosis Admitting Diagnosis Admitting Diagnosis: Unspecified atherosclerosis of [place] arteries of extremities, unspecified extremity <Anali Guadalupe NP - Last Filed: 01/21/20 16:13> Discharge Diagnosis (1) Atherosclerotic PVD with ulceration: Code(s): I70.209 - Unspecified atherosclerosis of [place] arteries of extremities, unspecified extremity; L98.499 - Non-pressure chronic ulcer of skin of other sites with unspecified severity <Anali Guadalupe NP - Last Filed: 01/21/20 16:13> Status: Acute <Anali Guadalupe NP - Last Filed: 01/21/20 16:13> Assessment and Plan: ED ordered a venous Doppler of LEFT only to rule out DVT - no DVT noted LELE hose ordered ordered an arterial Doppler study to rule in or out PAD - RESULTS are: Mildly decreased left-sided TBI and normal left-sided RAND, consistent with left-sided arterial occlusive disease. Ordered an CTA of bilateral lower extremities for today. Unable to do MRA since patient has hardware due to her right knee replacement. PT & OT ordered, and due to her possible left-sided PAD or occlusive disease may benefit from Vascular physical therapy.Plan to admit patient to [facility] today per PT/OT recommendations and patient's wishes. fasting lipid panel WNL -->may benefit from starting Cilostazol since she does have pain and cramping episodes in that leg on a daily basis due to PAD. started on daily 325 mg ASA and daily Protonix (patient denies any history of brain or GI bleeds, patient refused Lovenox at this time). ECHO results are:Left ventricular chamber dimension and systolic fxn is normal. EF 60-65%.The left ventricular diastolic function is grade I diastolic dysfunction. moderate aortic valve sclerosis.mild to moderate aortic valve regurgitation. trace mitral valve regurgitation. mild to moderate tricuspid valve regurgitation. No pulmonary hypertension, estimated pulmonary arterial systolic pressure is 20 mmHg. There is no pericardial effusion. Carotid Doppler results showed no significance stenosis of the right or left ICAs <Anali Guadalupe NP - Last Filed: 01/21/20 16:13> (2) Cellulitis: Qualifiers: Laterality: left Site of cellulitis: extremity Site of cellulitis of extremity: lower extremity Qualified Code(s): L03.116 - Cellulitis of left lower limb <Anali Guadalupe NP - Last Filed: 01/21/20 16:13> Code(s): L03.90 - Cellulitis, unspecified <Anali Guadalupe NP - Last Filed: 01/21/20 16:13> Status: Acute <Anali Guadalupe NP - Last Filed: 01/21/20 16:13> Assessment and Plan: ordered a nucleolar medicine bone scan with 3 phases to rule in or out osteomyelitis - in process - checked in with radiology - not read by radiologist yet will continue IV clindamycin as wound has decreased in redness and now today decreased in warmth, pink in color and same temp as rest of leg now. patient denies any history of MRSA at this time no open area or evidence of drainage at this time in order to culture the wound will need to depend on blood cultures and urine cultures elevate use warm compresses or ice for comfort as needed LELE hose ordered ordered daily ESR and CRP levels, CRP x 2 levels are WNL, ESR was 17 yesterday and 26 today. <Anali Guadalupe NP - Last Filed: 01/21/20 16:13> (3) Rheumatoid arthritis: Code(s): M06.9 - Rheumatoid arthritis, unspecified <Anali Guadalupe NP - Last Filed: 01/21/20 16:13> Status: Acute <Anali Guadalupe NP - Last Filed: 01/21/20 16:13> Assessment and Plan: plan to admit patient to [facility] today per PT/OT recommendations and patient's wishes. PT and OT evaluation ordered check calcium levels and vitamin-D levels and replenish as needed treat pain with Tylenol and or Motrin and/or lidocaine patches as needed use ice or warm compresses or heating pads as needed for comfort rule out gout, uric acid testing, uric acid level was 4.8 and
--- NOTE | 2020-01-21 13:16 | PC.NURSE ---
down and back from xray. uses bsc and into bed at this time.
[2020-01-21] MEDS: ASPIRIN 325 MG ENTERIC TABLET PO (13:20)
[2020-01-21] MEDS: PANTOPRAZOLE 40 MG TABLET PO (13:20)
[2020-01-24 18:45] LABS: Vitamin D 25 Hydroxy 24 ng/mL (30-100)
== END 2020-01-21 16:51 | disposition swing bed (61) | DRG 603 ==
LOC: CHSED 14:36 → CHS2ND 15:05
PROVIDERS: Nurse Practitioner; Admitting Provider Emergency Medicine; Emergency Provider Emergency Medicine; PCP Family Medicine; Visit Provider Emergency Medicine
DX: L03.116 Cellulitis of left lower limb (principal); L97.329 Non-pressure chronic ulcer of left ankle with unspecified severity; I70.243 Atherosclerosis of native arteries of left leg with ulceration of ankle; E03.9 Hypothyroidism, unspecified; M06.9 Rheumatoid arthritis, unspecified; J44.9 Chronic obstructive pulmonary disease, unspecified; M46.92 Unspecified inflammatory spondylopathy, cervical region; M54.5 Low back pain; D50.9 Iron deficiency anemia, unspecified; M85.80 Other specified disorders of bone density and structure, unspecified site
CPT/HCPCS: 36415; 73610; 73706; 78315; 80048; 80053; 80061; 81003; 82306; 82607; 82746; 83036; 83540; 83550; 83605; 84443; 84550; 85025; 85027; 85652; 86140; 87040; 87070; 87086; 87088; 87205; 93005; 93306; 93880; 93925; 93971; 96361; 96365; 96375; 96376; 97161; 99285; A9270; A9561; G0378; J1650; J2405; J7030; J7512; Q9965

== ENCOUNTER 2020-01-21 16:50 | Inpatient (IN) | payer MEDICARE, MEDICAID, SELFPAY ==
--- NOTE | 2020-01-21 17:28 | PC.NURSE ---
waiting on dr to verify meds, pt was discharged by pnp in order to change to swing bed, pt sitting up at bedside for dinner
--- NOTE | 2020-01-21 18:12 | PC.NURSE ---
unable to scan 1700 meds, lovenox 40mg, vit d and calcium given at 1710
[2020-01-21] MEDS: ACETAMINOPHEN 325 MG TABLET 650 MG PO (21:44)
[2020-01-21] MEDS: CLINDAMYCIN 600 MG/D5W 50 ML 600 MG/50 ML PIGGYBACK 100 MG IVPB (21:54)
[2020-01-21 22:00] VITALS: BP 131/70; PULSE 67; RESP 18; TEMP 36.6; O2SAT 97
[2020-01-22] MEDS: PANTOPRAZOLE 40 MG TABLET PO (05:49)
[2020-01-22] MEDS: LEVOTHYROXINE SODIUM 88 MCG TABLET PO (05:49)
[2020-01-22] MEDS: CLINDAMYCIN 600 MG/D5W 50 ML 600 MG/50 ML PIGGYBACK 100 MG IVPB ×3 (05:49→22:15)
[2020-01-22 06:00] VITALS: BP 147/65; PULSE 60; RESP 20; TEMP 36.2; O2SAT 95
--- NOTE | 2020-01-22 09:18 | PM.IMHP ---
H&P: HPI History of Present Illness Chief complaint: cellulitis of left lover limb Narrative: Laquita Mcfarlane is a 74 year old female was recently hospitalized due to Atherosclerotic PVD with ulceration, Cellulitis and Wound, and Rheumatoid arthritis. Patient has quite an altered gait to her ambulation, with physical therapists greatly concerned for her safety during walking especially since the patient lives alone. Due to her Generalized Weakness, Impaired Balance, and Altered Gait, Patient is to be admitted to a hospital [facility]hab bed for further PT, OT and rehab as well as IV antibiotics for her cellulitis. Review of Systems Review of Systems: All systems reviewed & are unremarkable except as noted in HPI and below Constitutional: Constitutional: Reports as per HPI, Denies excessive sweating, Denies headache(s), Denies increased appetite, Denies snoring and Denies weight gain Eyes: Eyes: Reports as per HPI, Denies exophthalmos, Denies diplopia, Denies floaters and Denies loss of peripheral vision ENT: Reports as per HPI, Denies facial pain, Denies headache(s), Denies odynophagia and Denies tinnitus Cardiovascular: Cardiovascular: Reports as per HPI, Reports pedal edema and Reports leg edema Respiratory: Respiratory: Reports as per HPI and Denies snoring Gastrointestinal: Gastrointestinal: Reports as per HPI and Denies odynophagia Genitourinary: Genitourinary: Reports as per HPI Musculoskeletal: Musculoskeletal: Reports as per HPI, Reports abnormal gait, Reports atrophy, Reports deformity (LLE), Reports arthralgias, Reports joint swelling, Reports limited range of motion, Reports muscle weakness, Reports radiating pain into limb and Reports stiffness Integumentary/Breasts: Skin/Breast: Reports as per HPI Neurologic: Reports as per HPI, Reports abnormal gait and Denies headache(s) Psychiatric: Psychiatric: Reports as per HPI Endocrine: Endocrine: Denies excessive sweating PMFSH Social History Social History Smoking status: Never smoker Alcohol intake: never Substance use: never Gender identity (if verbalized by the patient): Female Spiritual care concerns: No Meds Home Medications and Allergies Home Medications Medication Instructions Recorded Confirmed Type calcium carbonate 600 mg calcium 600 mg PO BID 08/02/19 01/21/20 History (1,500 mg) tablet cholecalciferol (vitamin D3) 10 400 unit PO BID cap 08/02/19 01/21/20 History mcg (400 unit) capsule folic acid 1 mg tablet 1 mg PO DAILY 08/02/19 01/21/20 History meloxicam 15 mg tablet 15 mg PO DAILY 08/02/19 01/21/20 History methotrexate sodium 2.5 mg tablet 10 mg PO BID tablet 08/02/19 01/21/20 History prednisone 2.5 mg tablet 2.5 mg PO DAILY 08/02/19 01/21/20 History triamcinolone acetonide 0.1 % 1 applic TOPICAL DAILY gm 08/02/19 01/21/20 History topical cream hydrocodone 5 mg-acetaminophen 325 1 tablet PO Q6H PRN #14 tablet 11/11/19 01/21/20 Rx mg tablet levothyroxine 88 mcg tablet 88 mcg PO DAILY #90 tablet 01/10/20 01/21/20 Rx acetaminophen [Mapap 650 mg PO Q4H PRN 30 Days tablet 01/21/20 01/21/20 Rx (acetaminophen)] aspirin 325 mg PO QAM 30 Days #30 tablet 01/21/20 01/21/20 Rx clindamycin in 5 % dextrose 600 mg IV Q8HR #1200 ml 01/21/20 01/21/20 Rx pantoprazole 40 mg PO QAM 30 Days #30 tablet 01/21/20 01/21/20 Rx Allergies Allergy/AdvReac Type Severity Reaction Status Date / Time amoxicillin [Augmentin] Allergy Intermediate Unknown Verified 01/13/20 15:24 clavulanic acid [Augmentin] Allergy Intermediate Unknown Verified 01/13/20 15:24 Sulfa (Sulfonamide Allergy Unknown Unknown Verified 01/13/20 15:24 Antibiotics) Sulfonamides Allergy Intermediate Unknown Uncoded 09/28/19 11:01 Vital Signs Vital Signs - 24 hr 01/21/20 22:00 01/22/20 06:00 Temperature 36.6 C 36.2 C L Pulse Rate 67 60 Respiratory Rate 18 20 Blood Pressure 131/70 147/65 H Pulse Oximetry 97 9
[2020-01-22] MEDS: CALCIUM CARBONATE (OSCAL) 500 MG TABLET PO ×2 (09:48→18:02)
[2020-01-22] MEDS: FOLIC ACID 1 MG TABLET PO (09:49)
[2020-01-22] MEDS: CHOLECALCIFEROL 400 UNITS TABLET (VIT D) PO ×2 (09:49→18:02)
[2020-01-22] MEDS: ASPIRIN 325 MG ENTERIC TABLET PO (09:49)
[2020-01-22] MEDS: MELOXICAM 7.5 MG TABLET 15 MG PO (09:49)
[2020-01-22] MEDS: ACETAMINOPHEN 325 MG TABLET 650 MG PO (09:53)
[2020-01-22] MEDS: TRIAMCINOLONE ACET 0.1% CREAM 15 GM TUBE 1 APPLIC TOPICAL (09:56)
[2020-01-22] MEDS: predniSONE 2.5 MG TABLET PO (10:02)
[2020-01-22 14:00] VITALS: BP 153/70; PULSE 70; RESP 16; TEMP 37.5; O2SAT 95
--- NOTE | 2020-01-22 20:38 | PC.NURSE ---
Patient states that she is missing a white colored bra. She states that she is unsure if it was sent home with her brother when he brought in her clothes today. Kiln Cleaner looked through clothing bags and did not see a bra in them.
[2020-01-22 22:00] VITALS: BP 135/82; PULSE 68; RESP 20; TEMP 36.3; O2SAT 95
[2020-01-23 05:50] VITALS: BP 143/63; PULSE 69; RESP 18; TEMP 36.3; O2SAT 97
[2020-01-23] MEDS: LEVOTHYROXINE SODIUM 88 MCG TABLET PO (06:04)
[2020-01-23] MEDS: ACETAMINOPHEN 325 MG TABLET 650 MG PO (06:05)
[2020-01-23] MEDS: PANTOPRAZOLE 40 MG TABLET PO (06:05)
[2020-01-23] MEDS: CLINDAMYCIN 600 MG/D5W 50 ML 600 MG/50 ML PIGGYBACK 100 MG IVPB ×3 (06:06→21:00)
--- NOTE | 2020-01-23 08:41 | PHAR ---
PT. TAKES METHOTREXATE 10MG BID ONLY ON MONDAYS EACH WEEK PER [facility] ON 01/19/20 ORDERS DID NOT GET COPIED WHEN PT WAS CHANGED TO [facility] ON 01/21/20. I MODIFIED SO ARE CORRECT FOR METHOTREXATE DOSE NOW. TLS
[2020-01-23] MEDS: predniSONE 5 MG TABLET 2.5 MG PO (08:51)
[2020-01-23] MEDS: MELOXICAM 7.5 MG TABLET 15 MG PO (08:52)
[2020-01-23] MEDS: CALCIUM CARBONATE (OSCAL) 500 MG TABLET PO ×2 (08:52→17:04)
[2020-01-23] MEDS: FOLIC ACID 1 MG TABLET PO (08:52)
[2020-01-23] MEDS: CHOLECALCIFEROL 400 UNITS TABLET (VIT D) PO ×2 (08:52→17:04)
[2020-01-23] MEDS: ASPIRIN 325 MG ENTERIC TABLET PO (08:54)
[2020-01-23] MEDS: TRIAMCINOLONE ACET 0.1% CREAM 15 GM TUBE 1 APPLIC TOPICAL (08:55)
[2020-01-23 13:22] VITALS: BP 128/72; PULSE 72; RESP 12; TEMP 36.8; O2SAT 98
--- NOTE | 2020-01-23 18:11 | PC.NURSE ---
Patient with good appetite. Assisted to bathroom using gait belt, walker, 1 assist. Assisted to bed. SR up x2, call light, belongings within reach.
[2020-01-23 22:00] VITALS: BP 126/80; PULSE 84; RESP 15; TEMP 36.8; O2SAT 98
[2020-01-23 23:34] VITALS: BP 120/54; PULSE 69; RESP 16; TEMP 36.6; O2SAT 97
--- NOTE | 2020-01-24 03:27 | PC.NURSE ---
Pt up to the bathroom with her walker and assist of one. Pt voided and returned to bed with her walker and assist of one. Side rails up x2 and call benson within reach.
[2020-01-24 05:12] VITALS: BP 138/60; PULSE 67; RESP 16; TEMP 36.5; O2SAT 97
[2020-01-24] MEDS: LEVOTHYROXINE SODIUM 88 MCG TABLET PO (06:02)
[2020-01-24] MEDS: PANTOPRAZOLE 40 MG TABLET PO (06:02)
--- NOTE | 2020-01-24 06:08 | PC.NURSE ---
Pt complains of itching. Has fine red raised rash on back Red area above marked area inner aspect of L leg approx egg sized is present. Charge nurse viewed this.
--- NOTE | 2020-01-24 06:27 | PC.NURSE ---
0620 Diffuse rash noted on pt's back and pt c/o itchiness. Dr. Puri notified and orders were received and noted.
[2020-01-24] MEDS: methylPREDNISolone SOD SUCC 125 MG VIAL IV PUSH (06:37)
--- NOTE | 2020-01-24 07:26 | PC.NURSE ---
Up to void, used walker and stand by assist, tolerated well, shuffle type gait but steady, up at side of bed now for breakfast
--- NOTE | 2020-01-24 07:27 | PC.NURSE ---
0637 Pt given solumedrol 125 mg IV push as ordered. Clindamycin dc'd as ordered.
[2020-01-24 07:47] VITALS: BP 142/58; PULSE 63; RESP 18; TEMP 36.9; O2SAT 95
--- NOTE | 2020-01-24 08:07 | PC.NURSE ---
Sitting on edge of bed eating breakfast, denies needs
[2020-01-24] MEDS: ASPIRIN 325 MG ENTERIC TABLET PO (08:59)
[2020-01-24] MEDS: predniSONE 5 MG TABLET 2.5 MG PO (08:59)
[2020-01-24] MEDS: CALCIUM CARBONATE (OSCAL) 500 MG TABLET PO ×2 (08:59→16:38)
[2020-01-24] MEDS: CHOLECALCIFEROL 400 UNITS TABLET (VIT D) PO ×2 (08:59→16:38)
[2020-01-24] MEDS: MELOXICAM 7.5 MG TABLET 15 MG PO (09:00)
[2020-01-24] MEDS: FOLIC ACID 1 MG TABLET PO (09:00)
[2020-01-24] MEDS: TRIAMCINOLONE ACET 0.1% CREAM 15 GM TUBE 1 APPLIC TOPICAL (09:01)
--- NOTE | 2020-01-24 12:57 | PC.NURSE ---
SBA and up to bathroom with use of walker, tolerated well, shuffle gait, steady
[2020-01-24] MEDS: LORATADINE 10 MG TABLET PO (13:24)
--- NOTE | 2020-01-24 14:31 | PC.NURSE ---
Resting in bed with leg elevated, denies needs, no itch at this time
[2020-01-24 15:37] VITALS: BP 140/75; PULSE 71; RESP 18; TEMP 37.2; O2SAT 98
--- NOTE | 2020-01-24 18:23 | PC.NURSE ---
Resting in bed, personal items in reach, call light in reach, no compaints of pain or itch at this time, no change in appearance of LLE
[2020-01-24] MEDS: HYDROCORTISONE 1% 30 GM CREAM 1 APPLIC TOPICAL (20:40)
[2020-01-24] MEDS: ACETAMINOPHEN 325 MG TABLET 650 MG PO (20:41)
[2020-01-24 21:08] VITALS: BP 137/38; PULSE 64; RESP 18; TEMP 36.6; O2SAT 96
--- NOTE | 2020-01-24 22:33 | PC.NURSE ---
pt sleeping, respirations even and regular, no evidence of distress noted at this time.
--- NOTE | 2020-01-25 02:08 | PC.NURSE ---
pt sleeping, respirations even and regular, no evidence of distress noted
[2020-01-25] MEDS: LEVOTHYROXINE SODIUM 88 MCG TABLET PO (05:33)
[2020-01-25] MEDS: PANTOPRAZOLE 40 MG TABLET PO (05:33)
[2020-01-25 07:22] VITALS: BP 139/58; PULSE 60; RESP 18; TEMP 36.9; O2SAT 98
--- NOTE | 2020-01-25 08:04 | PC.NURSE ---
Sitting up on edge of bed eating breakfast
[2020-01-25] MEDS: predniSONE 5 MG TABLET 2.5 MG PO (08:28)
[2020-01-25] MEDS: LORATADINE 10 MG TABLET PO ×2 (08:28→09:00)
[2020-01-25] MEDS: ASPIRIN 325 MG ENTERIC TABLET PO (08:28)
[2020-01-25] MEDS: FOLIC ACID 1 MG TABLET PO (08:29)
[2020-01-25] MEDS: TRIAMCINOLONE ACET 0.1% CREAM 15 GM TUBE 1 APPLIC TOPICAL (08:29)
[2020-01-25] MEDS: MELOXICAM 7.5 MG TABLET 15 MG PO (08:29)
[2020-01-25] MEDS: CALCIUM CARBONATE (OSCAL) 500 MG TABLET PO ×2 (08:29→16:54)
[2020-01-25] MEDS: CHOLECALCIFEROL 400 UNITS TABLET (VIT D) PO ×2 (08:29→16:54)
[2020-01-25] MEDS: HYDROCORTISONE 1% 30 GM CREAM 1 APPLIC TOPICAL ×2 (08:30→21:08)
--- NOTE | 2020-01-25 08:36 | PC.NURSE ---
SBA up to bathroom, trouble getting to standing position from edge of bed, had to raise height of bed for patient to get up, states shoulder sore from pushing self up
--- NOTE | 2020-01-25 11:02 | PC.NURSE ---
increase in itch, IV benadryl given and artificial tears for itching in eyes
--- NOTE | 2020-01-25 12:25 | P.PNIM_ITS ---
Progress Note: A&P Assessment and Plan (1) Ulcer of calf due to atherosclerosis of artery of lower extremity: Code(s): I70.25 - Atherosclerosis of [place] arteries of other extremities with ulceration <KELLIE Ferrell - Last Filed: 01/25/20 13:11> Status: Acute <Angeles HenriquezKELLIE - Last Filed: 01/25/20 13:11> Assessment and Plan: * secondary to cellulitis and Pvd * Doppler negative for DVT indicated Mildly decreased left-sided TBI and normal left-sided RAND, consistent with left-sided arterial occlusive disease. indicat PAD * patient started on aspirin 81 mg atorvastatin 40 mg of lisinopril low-dose * bone scan and CT negative for osteomyelitis * bone scan did indicate cellulitis * patient received clindamycin IV for 3 days while in-patient and developed a rash is results. patient did receive approximately 7 days of p.o. antibiotics before admission. . <KELLIE Ferrell - Last Filed: 01/25/20 13:11> (2) Cellulitis: Qualifiers: Laterality: left Site of cellulitis: extremity Site of cellulitis of extremity: lower extremity Qualified Code(s): L03.116 - Cellulitis of left lower limb <KELLIE Ferrell - Last Filed: 01/25/20 13:11> Code(s): L03.90 - Cellulitis, unspecified <KELLIE Ferrell - Last Filed: 01/25/20 13:11> Status: Acute <KELLIE Ferrell - Last Filed: 01/25/20 13:11> Assessment and Plan: * bone scan indicates cellulites * patient completed 3 days IV clindamycin . antibiotic discontinued due to rash. before admission patient's completed approximately 7 days of p.o. antibiotics * blood culture preliminary no growth,wound culture final results no growth and urine cultures with normal oralia * gout r/o -uric acid level WNL * last wbc wnl, patient afebrile last CRP within normal limits <KELLIE Ferrell - Last Filed: 01/25/20 13:11> (3) Rheumatoid arthritis: Code(s): M06.9 - Rheumatoid arthritis, unspecified <Angeles Henriquez, CAR MANAGER-Jeromy Moura Filed: 01/25/20 13:11> Status: Acute <Angeles HenriquezHERMANCliffordJeromy Clifford Last Filed: 01/25/20 13:11> Assessment and Plan: * continue swing bed rehab * continue PT and OT * continue pain medication <Angeles WestHERMAN DayChay - Last Filed: 01/25/20 13:11> (4) Weakness: Code(s): R53.1 - Weakness <Angeles Abbott SHAHAB HenriquezJeromy - Martell Filed: 01/25/20 13:11> Status: Acute <Angeles HenriquezVENKATESHStevie Moura Filed: 01/25/20 13:11> Assessment and Plan: * weakness secondary to cellulitis and PAD * Exhibit tolerance during physical activity as evidenced by a normal fluctuation of vital signs during physical activity. * Patient will be ability to perform required activities of daily living. * Provide appropriate nutrition for healing and strength. * Use appropriate to prevent falls. * Continue physical therapy/occupational therapy. <Jaylanadeola BrettSHAHAB DayJeromy Horton Filed: 01/25/20 13:11> (5) PAD (peripheral artery disease): Code(s): I73.9 - Peripheral vascular disease, unspecified <Jaylanadeola Scar HERMAN HenriquezChay Horton Last Filed: 01/25/20 13:11> Status: Acute <Angeles WestHERMAN DayChay Moura Filed: 01/25/20 13:11> Assessment and Plan: * arterial scan indicates left-sided arterial occlusive disease. * started patient on aspirin 81 mg atorvastatin 40 mg and low-dose lisinopril * continue physical therapy are per occupational therapy. * patient will need to follow-up with primary care physician after discharge <JaylanHERMAN LermaCliffordJeromy - Martell Fi
--- NOTE | 2020-01-25 12:25 | PM.IMPN ---
Progress Note: A&P Assessment and Plan (1) Ulcer of calf due to atherosclerosis of artery of lower extremity: Code(s): I70.25 - Atherosclerosis of [place] arteries of other extremities with ulceration <KELLIE Ferrell - Last Filed: 01/25/20 13:11> Status: Acute <KELLIE Ferrell - Last Filed: 01/25/20 13:11> Assessment and Plan: secondary to cellulitis and Pvd Doppler negative for DVT indicated Mildly decreased left-sided TBI and normal left-sided RAND, consistent with left-sided arterial occlusive disease. indicat PAD patient started on aspirin 81 mg atorvastatin 40 mg of lisinopril low-dose bone scan and CT negative for osteomyelitis bone scan did indicate cellulitis patient received clindamycin IV for 3 days while in-patient and developed a rash is results. patient did receive approximately 7 days of p.o. antibiotics before admission. . <KELLIE Ferrell - Last Filed: 01/25/20 13:11> (2) Cellulitis: Qualifiers: Laterality: left Site of cellulitis: extremity Site of cellulitis of extremity: lower extremity Qualified Code(s): L03.116 - Cellulitis of left lower limb <KELLIE Ferrell - Last Filed: 01/25/20 13:11> Code(s): L03.90 - Cellulitis, unspecified <KELLIE Ferrell - Last Filed: 01/25/20 13:11> Status: Acute <KELLIE Ferrell - Last Filed: 01/25/20 13:11> Assessment and Plan: bone scan indicates cellulites patient completed 3 days IV clindamycin . antibiotic discontinued due to rash. before admission patient's completed approximately 7 days of p.o. antibiotics blood culture preliminary no growth,wound culture final results no growth and urine cultures with normal oralia gout r/o -uric acid level WNL last wbc wnl, patient afebrile last CRP within normal limits <KELLIE Ferrell - Last Filed: 01/25/20 13:11> (3) Rheumatoid arthritis: Code(s): M06.9 - Rheumatoid arthritis, unspecified <KELLIE Ferrell - Last Filed: 01/25/20 13:11> Status: Acute <KELLIE Ferrell Last Filed: 01/25/20 13:11> Assessment and Plan: continue swing bed rehab continue PT and OT continue pain medication <KELLIE Ferrell - Last Filed: 01/25/20 13:11> (4) Weakness: Code(s): R53.1 - Weakness <KELLIE Ferrell - Last Filed: 01/25/20 13:11> Status: Acute <KELLIE Ferrell Last Filed: 01/25/20 13:11> Assessment and Plan: weakness secondary to cellulitis and PAD Exhibit tolerance during physical activity as evidenced by a normal fluctuation of vital signs during physical activity. Patient will be ability to perform required activities of daily living. Provide appropriate nutrition for healing and strength. Use appropriate to prevent falls. Continue physical therapy/occupational therapy. <KELLIE Ferrell - Last Filed: 01/25/20 13:11> (5) PAD (peripheral artery disease): Code(s): I73.9 - Peripheral vascular disease, unspecified <KELLIE Ferrell - Last Filed: 01/25/20 13:11> Status: Acute <KELLIE Ferrell Last Filed: 01/25/20 13:11> Assessment and Plan: arterial scan indicates left-sided arterial occlusive disease. started patient on aspirin 81 mg atorvastatin 40 mg and low-dose lisinopril continue physical therapy are per occupational therapy. patient will need to follow-up with primary care physician after discharge <KELLIE Ferrell - Last Filed: 01/25/20 13:11> Subjective Date/time seen: 01/25/20 12:25 Patient's cellulitis to the left lower extremity has improved. patient does have hive skin rashes on her upper and lower extremities, abdominal area and back possibly secondary to antibiotic treatment. patient does deny any swelling or itching of her lip or tongue
[2020-01-25 15:19] VITALS: BP 119/66; PULSE 69; RESP 18; TEMP 36.8; O2SAT 95
--- NOTE | 2020-01-25 17:50 | PC.NURSE ---
Remains sitting on edge of bed, personal items in reach of patient, denies needs
--- NOTE | 2020-01-25 18:31 | PC.NURSE ---
Resting in bed, denies needs at this time, call light in reach and personal items in reach, no change in rash or itch
[2020-01-25] MEDS: ACETAMINOPHEN 325 MG TABLET 650 MG PO (18:41)
[2020-01-26] VITALS: BP 152/67; PULSE 54; RESP 18; TEMP 36.6; O2SAT 97
[2020-01-26] MEDS: LEVOTHYROXINE SODIUM 88 MCG TABLET PO (05:40)
[2020-01-26] MEDS: PANTOPRAZOLE 40 MG TABLET PO (05:40)
[2020-01-26 07:49] VITALS: BP 143/59; PULSE 62; RESP 18; TEMP 36.8; O2SAT 99
[2020-01-26] MEDS: ASPIRIN 81 MG ENTERIC TABLET PO (09:44)
[2020-01-26] MEDS: ATORVASTATIN 10 MG TABLET 40 MG PO (09:44)
[2020-01-26] MEDS: CHOLECALCIFEROL 400 UNITS TABLET (VIT D) PO ×2 (09:44→16:36)
[2020-01-26] MEDS: LORATADINE 10 MG TABLET PO ×2 (09:45→09:47)
[2020-01-26] MEDS: predniSONE 5 MG TABLET 2.5 MG PO (09:45)
[2020-01-26] MEDS: FOLIC ACID 1 MG TABLET PO (09:45)
[2020-01-26] MEDS: ACETAMINOPHEN 325 MG TABLET 650 MG PO (09:45)
[2020-01-26] MEDS: lisinopriL 5 MG TABLET 2.5 MG PO (09:46)
[2020-01-26] MEDS: MELOXICAM 7.5 MG TABLET 15 MG PO (09:46)
[2020-01-26] MEDS: CALCIUM CARBONATE (OSCAL) 500 MG TABLET PO ×2 (09:46→16:36)
[2020-01-26] MEDS: HYDROCORTISONE 1% 30 GM CREAM 1 APPLIC TOPICAL ×2 (09:48→21:07)
[2020-01-26] MEDS: TRIAMCINOLONE ACET 0.1% CREAM 15 GM TUBE 1 APPLIC TOPICAL (10:37)
[2020-01-26 16:00] VITALS: BP 131/61; PULSE 62; RESP 18; TEMP 36.9; O2SAT 96
[2020-01-27 00:10] VITALS: BP 104/62; PULSE 61; RESP 18; TEMP 36.6; O2SAT 99
--- NOTE | 2020-01-27 02:09 | PC.NURSE ---
pt sleeping, respirations even and regular, no evidence of distress noted at this time.
[2020-01-27] MEDS: PANTOPRAZOLE 40 MG TABLET PO (05:53)
[2020-01-27] MEDS: LEVOTHYROXINE SODIUM 88 MCG TABLET PO (05:53)
[2020-01-27 07:49] VITALS: BP 123/57; PULSE 65; RESP 18; TEMP 36.7; O2SAT 98
[2020-01-27] MEDS: ASPIRIN 81 MG ENTERIC TABLET PO (09:09)
[2020-01-27] MEDS: HYDROCORTISONE 1% 30 GM CREAM 1 APPLIC TOPICAL ×2 (09:09→21:05)
[2020-01-27] MEDS: FOLIC ACID 1 MG TABLET PO (09:10)
[2020-01-27] MEDS: ATORVASTATIN 10 MG TABLET 40 MG PO (09:10)
[2020-01-27] MEDS: CALCIUM CARBONATE (OSCAL) 500 MG TABLET PO ×2 (09:10→16:17)
[2020-01-27] MEDS: MELOXICAM 7.5 MG TABLET 15 MG PO (09:10)
[2020-01-27] MEDS: LORATADINE 10 MG TABLET PO (09:11)
[2020-01-27] MEDS: lisinopriL 5 MG TABLET 2.5 MG PO (09:11)
[2020-01-27] MEDS: CHOLECALCIFEROL 400 UNITS TABLET (VIT D) PO ×2 (09:11→16:16)
[2020-01-27] MEDS: predniSONE 5 MG TABLET 2.5 MG PO (09:11)
[2020-01-27] MEDS: ACETAMINOPHEN 325 MG TABLET 650 MG PO (09:11)
[2020-01-27] MEDS: TRIAMCINOLONE ACET 0.1% CREAM 15 GM TUBE 1 APPLIC TOPICAL (09:12)
--- NOTE | 2020-01-27 13:10 | PM.EVENT ---
Event Note Event Note Event Note: I assessed patient's rash on her upper and lower extremities bilateral back and abdomen area today, it is improving. patient will also stay week per protective services case worker
[2020-01-27 16:00] VITALS: BP 133/73; PULSE 78; RESP 18; TEMP 37.4; O2SAT 97
--- NOTE | 2020-01-27 21:05 | PC.NURSE ---
Assisted to dress for bed. Clothing folded and placed on chair per patient direction. Patient requests to use BSC during night as she is unable to hold urine to get to bathroom. Ugt applied per MAR to left knee and thigh and Right arm. Benadryl 25mg po given for itching. Rash dull red unraised.
--- NOTE | 2020-01-27 23:05 | PC.NURSE ---
Watching T.V. no distress noted. Skin pink, respirations easy/unlabored.
[2020-01-27 23:20] VITALS: BP 118/56; PULSE 68; RESP 18; TEMP 37.1; O2SAT 97
[2020-01-28] MEDS: LEVOTHYROXINE SODIUM 88 MCG TABLET PO (05:37)
[2020-01-28] MEDS: PANTOPRAZOLE 40 MG TABLET PO (05:37)
--- NOTE | 2020-01-28 05:39 | PC.NURSE ---
Watching T.V.; morning medications taken with a sip of water.
[2020-01-28 07:20] VITALS: BP 131/76; PULSE 63; RESP 18; TEMP 36.6; O2SAT 99
[2020-01-28] MEDS: ASPIRIN 81 MG ENTERIC TABLET PO (09:27)
[2020-01-28] MEDS: CHOLECALCIFEROL 400 UNITS TABLET (VIT D) PO ×2 (09:28→16:22)
[2020-01-28] MEDS: ATORVASTATIN 40 MG TABLET PO (09:28)
[2020-01-28] MEDS: lisinopriL 5 MG TABLET 2.5 MG PO (09:28)
[2020-01-28] MEDS: CALCIUM CARBONATE (OSCAL) 500 MG TABLET PO ×2 (09:28→16:22)
[2020-01-28] MEDS: FOLIC ACID 1 MG TABLET PO (09:28)
[2020-01-28] MEDS: LORATADINE 10 MG TABLET PO (09:28)
[2020-01-28] MEDS: predniSONE 5 MG TABLET 2.5 MG PO (09:28)
[2020-01-28] MEDS: MELOXICAM 7.5 MG TABLET 15 MG PO (09:29)
[2020-01-28] MEDS: HYDROCORTISONE 1% 30 GM CREAM 1 APPLIC TOPICAL ×2 (09:29→21:30)
[2020-01-28] MEDS: TRIAMCINOLONE ACET 0.1% CREAM 15 GM TUBE 1 APPLIC TOPICAL (09:30)
[2020-01-28 15:10] VITALS: BP 100/49; PULSE 73; RESP 18; TEMP 36.9; O2SAT 97
[2020-01-28] MEDS: ACETAMINOPHEN 325 MG TABLET 650 MG PO (16:22)
[2020-01-28 23:59] VITALS: BP 99/48; PULSE 60; RESP 18; TEMP 36; O2SAT 98
[2020-01-29] MEDS: PANTOPRAZOLE 40 MG TABLET PO (05:45)
[2020-01-29] MEDS: LEVOTHYROXINE SODIUM 88 MCG TABLET PO (05:45)
[2020-01-29 07:50] VITALS: BP 116/60; PULSE 63; RESP 18; TEMP 36.9; O2SAT 99
[2020-01-29] MEDS: FOLIC ACID 1 MG TABLET PO (09:01)
[2020-01-29] MEDS: CHOLECALCIFEROL 400 UNITS TABLET (VIT D) PO (09:01)
[2020-01-29] MEDS: ASPIRIN 81 MG ENTERIC TABLET PO (09:01)
[2020-01-29] MEDS: LORATADINE 10 MG TABLET PO (09:02)
[2020-01-29] MEDS: ATORVASTATIN 40 MG TABLET PO (09:02)
[2020-01-29] MEDS: CALCIUM CARBONATE (OSCAL) 500 MG TABLET PO (09:03)
[2020-01-29] MEDS: predniSONE 5 MG TABLET 2.5 MG PO (09:03)
[2020-01-29] MEDS: lisinopriL 5 MG TABLET 2.5 MG PO (09:03)
[2020-01-29] MEDS: MELOXICAM 7.5 MG TABLET 15 MG PO (09:04)
[2020-01-29] MEDS: HYDROCORTISONE 1% 30 GM CREAM 1 APPLIC TOPICAL (09:04)
[2020-01-29] MEDS: TRIAMCINOLONE ACET 0.1% CREAM 15 GM TUBE 1 APPLIC TOPICAL (09:07)
--- NOTE | 2020-01-29 11:00 | PC.NURSE ---
PT in room to work with patient.
[2020-01-29 15:30] VITALS: BP 143/58; PULSE 63; RESP 18; TEMP 37.2; O2SAT 98
[2020-01-29] MEDS: CALCIUM CARBONATE (TUMS) 500 MG (200 MG ELEMENTAL) 400 MG PO (16:57)
[2020-01-30] VITALS: BP 106/52; PULSE 56; RESP 20; TEMP 36.4; O2SAT 96
[2020-01-30] MEDS: PANTOPRAZOLE 40 MG TABLET PO (05:37)
[2020-01-30] MEDS: LEVOTHYROXINE SODIUM 88 MCG TABLET PO (05:37)
--- NOTE | 2020-01-30 05:44 | PC.NURSE ---
Patient reporting right elbow pain and back pain this morning. She refuses to take pain medication for fear that it will upset her stomach. Per patient request she was taken an ice pack for her elbow.
[2020-01-30 07:15] VITALS: BP 112/60; PULSE 66; RESP 18; TEMP 36.4; O2SAT 100
[2020-01-30] MEDS: ACETAMINOPHEN 325 MG TABLET 650 MG PO ×2 (08:35→14:16)
[2020-01-30] MEDS: ATORVASTATIN 40 MG TABLET PO (08:36)
[2020-01-30] MEDS: CALCIUM CARBONATE (OSCAL) 500 MG TABLET PO ×2 (08:36→17:57)
[2020-01-30] MEDS: FOLIC ACID 1 MG TABLET PO (08:36)
[2020-01-30] MEDS: LORATADINE 10 MG TABLET PO (08:36)
[2020-01-30] MEDS: predniSONE 5 MG TABLET 2.5 MG PO (08:36)
[2020-01-30] MEDS: lisinopriL 5 MG TABLET 2.5 MG PO (08:36)
[2020-01-30] MEDS: CHOLECALCIFEROL 400 UNITS TABLET (VIT D) PO ×2 (08:36→17:57)
[2020-01-30] MEDS: ASPIRIN 81 MG ENTERIC TABLET PO (08:36)
[2020-01-30] MEDS: HYDROCORTISONE 1% 30 GM CREAM 1 APPLIC TOPICAL ×2 (08:37→21:30)
[2020-01-30] MEDS: TRIAMCINOLONE ACET 0.1% CREAM 15 GM TUBE 1 APPLIC TOPICAL (08:37)
[2020-01-30] MEDS: MELOXICAM 7.5 MG TABLET 15 MG PO (08:37)
[2020-01-30 09:27] LABS: Hematocrit 39.5 % (35.0-42.0); Hemoglobin 12.9 g/dL (11.7-13.8); Mean Corpuscular HGB Conc 32.7 g/dL (32.0-36.0); Mean Corpuscular Hemoglobin 33.6 pg (27.0-31.0); Mean Corpuscular Volume 102.9 fL (78.0-102.0); Mean Platelet Volume 10.1 fl (9.2-11.8); Platelet Count Result 336 K/mm3 (150-420); Red Blood Count 3.84 M/mm3 (4.20-5.40); White Blood Count 9.2 K/mm3 (4.8-10.8)
[2020-01-30 09:43] LABS: Alanine Aminotransferase 46 U/L (14-59); Albumin Level 3.6 g/dL (3.4-5.0); Alkaline Phosphatase 101 U/L (46-116); Anion Gap 16.2 mmol/L (7-16); Aspartate Amino Transferase 29 U/L (15-37); Bilirubin,Total 0.3 mg/dL (0.00-1.00); Blood Urea Nitrogen 24 mg/dL (7-18); Calcium 9.3 mg/dL (8.5-10.1); Carbon Dioxide 25 mmol/L (21-32); Chloride 103 mmol/L (98-108); Estimated Glomerular Filt Rate > 60; Glucose 112 mg/dL (70-99); Osmolality Calculated 295 mOsm/kg (285-295); Potassium 4.2 mmol/L (3.5-5.1); Sodium 140 mmol/L (136-145); Total Protein 6.7 g/dL (6.4-8.2)
[2020-01-30 10:23] LABS: Erythrocyte Sedimentation Rate 40 mm/hr (0-20)
--- NOTE | 2020-01-30 11:40 | P.PNIM_ITS ---
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 indicat PAD * patient started on aspirin 81 mg atorvastatin 40 mg of lisinopril low-dose * bone scan and CT negative for osteomyelitis * bone scan did indicate cellulitis * patient received clindamycin IV for 3 days while in-patient and developed a rash is results. patient did receive approximately 7 days of p.o. antibiotics before admission. . (2) Cellulitis: Qualifiers: Laterality: left Site of cellulitis: extremity Site of cellulitis of extremity: lower extremity Qualified Code(s): L03.116 - Cellulitis of left lower limb Code(s): L03.90 - Cellulitis, unspecified Status: Acute Assessment and Plan: * bone scan indicates cellulites * patient completed 3 days IV clindamycin . antibiotic discontinued due to rash. before admission patient's completed approximately 7 days of p.o. antibiotics * blood culture preliminary no growth,wound culture final results no growth and urine cultures with normal oralia * gout r/o -uric acid level WNL * last wbc wnl, patient afebrile last CRP within normal limits (3) Rheumatoid arthritis: Code(s): M06.9 - Rheumatoid arthritis, unspecified Status: Acute Assessment and Plan: * continue swing bed rehab * continue PT and OT * continue pain medication (4) Weakness: Code(s): R53.1 - Weakness Status: Acute Assessment and Plan: * weakness secondary to cellulitis and PAD * Exhibit tolerance during physical activity as evidenced by a normal fluctuation of vital signs during physical activity. * Patient will be ability to perform required activities of daily living. * Provide appropriate nutrition for healing and strength. * Use appropriate to prevent falls. * Continue physical therapy/occupational therapy. (5) PAD (peripheral artery disease): Code(s): I73.9 - Peripheral vascular disease, unspecified Status: Acute Assessment and Plan: * arterial scan indicates left-sided arterial occlusive disease. * started patient on aspirin 81 mg atorvastatin 40 mg and low-dose lisinopril * continue physical therapy are per occupational therapy. * patient will need to follow-up with primary care physician after discharge Subjective Date/time seen: 01/30/20 11:40 patient complains of rheumatoid arthritis pains in her elbows. she takes Tylenol at home for treatment, informed patient that she has Tylenol prescribed and to use it for her pain. She noted that the [place] upsets her stomach. she was instructed to take the Tylenol if it works for her. she also has ice pack to the affected elbow which helps lessen the pain. her generalized rash has resolved. Patient able to tolerate all meals , slept well Patient denies SOB, CP, palpitation, extremity numbness, lightheadness, dizziness, constipation, diarrhea, chills or fever. Review of Systems Review of Systems: All systems reviewed & are unremarkable except as noted in HPI and below Constitutional: Constitutional: Reports as per HPI, Denies excessive sweating, Denies headache(s), Denies increased appetite, Denies snoring and Denies weight gain Eyes: Eye
--- NOTE | 2020-01-30 11:40 | PM.IMPN ---
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 indicat PAD patient started on aspirin 81 mg atorvastatin 40 mg of lisinopril low-dose bone scan and CT negative for osteomyelitis bone scan did indicate cellulitis patient received clindamycin IV for 3 days while in-patient and developed a rash is results. patient did receive approximately 7 days of p.o. antibiotics before admission. . (2) Cellulitis: Qualifiers: Laterality: left Site of cellulitis: extremity Site of cellulitis of extremity: lower extremity Qualified Code(s): L03.116 - Cellulitis of left lower limb Code(s): L03.90 - Cellulitis, unspecified Status: Acute Assessment and Plan: bone scan indicates cellulites patient completed 3 days IV clindamycin . antibiotic discontinued due to rash. before admission patient's completed approximately 7 days of p.o. antibiotics blood culture preliminary no growth,wound culture final results no growth and urine cultures with normal oralia gout r/o -uric acid level WNL last wbc wnl, patient afebrile last CRP within normal limits (3) Rheumatoid arthritis: Code(s): M06.9 - Rheumatoid arthritis, unspecified Status: Acute Assessment and Plan: continue swing bed rehab continue PT and OT continue pain medication (4) Weakness: Code(s): R53.1 - Weakness Status: Acute Assessment and Plan: weakness secondary to cellulitis and PAD Exhibit tolerance during physical activity as evidenced by a normal fluctuation of vital signs during physical activity. Patient will be ability to perform required activities of daily living. Provide appropriate nutrition for healing and strength. Use appropriate to prevent falls. Continue physical therapy/occupational therapy. (5) PAD (peripheral artery disease): Code(s): I73.9 - Peripheral vascular disease, unspecified Status: Acute Assessment and Plan: arterial scan indicates left-sided arterial occlusive disease. started patient on aspirin 81 mg atorvastatin 40 mg and low-dose lisinopril continue physical therapy are per occupational therapy. patient will need to follow-up with primary care physician after discharge Subjective Date/time seen: 01/30/20 11:40 patient complains of rheumatoid arthritis pains in her elbows. she takes Tylenol at home for treatment, informed patient that she has Tylenol prescribed and to use it for her pain. She noted that the [place] upsets her stomach. she was instructed to take the Tylenol if it works for her. she also has ice pack to the affected elbow which helps lessen the pain. her generalized rash has resolved. Patient able to tolerate all meals , slept well Patient denies SOB, CP, palpitation, extremity numbness, lightheadness, dizziness, constipation, diarrhea, chills or fever. Review of Systems Review of Systems: All systems reviewed & are unremarkable except as noted in HPI and below Constitutional: Constitutional: Reports as per HPI, Denies excessive sweating, Denies headache(s), Denies increased appetite, Denies snoring and Denies weight gain Eyes: Eyes: Reports as per HPI, Denies exophthalmos, Denies diplopia, Denies floaters and Denies loss of peripheral vision ENT: Reports as per HPI, Denies facial pain, Denies headache(s), Denies odynophagia and Denies tinnitus Cardiovascular: Cardiovascular: Reports as per HPI Respiratory: Respiratory: Reports as per HPI and Denies snoring Gastrointestinal: Gastrointestinal: Reports as per HPI and
--- NOTE | 2020-01-30 11:50 | PM.EVENT ---
Event Note Event Note Event Note: For this patient encounter, I reviewed Angeles Henriquez's documentation, treatment plan, and medical decision making; and I had [id number] time with this patient. Pt's itching has almost entirely subsided. Rash has cleared up. She is up in a chair and walking. Has trouble getting up out of the room chairs because of R.A Left lower leg area of previous cellulitis is without tenderness. There is a faint red area with ink marked borders. An ulcer opening of about 2 mm is seen just superior to the lateral malleolus. The edges are heaped up; there's no surrounding redness. No rash seen on face, back or arms. Length of swing bed status to be discussed on 01/31.
[2020-01-30 15:40] VITALS: BP 141/69; PULSE 68; RESP 18; TEMP 37.4; O2SAT 97
[2020-01-30 23:34] VITALS: BP 125/50; PULSE 61; RESP 20; TEMP 36.4; O2SAT 95
--- NOTE | 2020-01-31 02:48 | PC.NURSE ---
Voided x2 so far this shift.
[2020-01-31] MEDS: PANTOPRAZOLE 40 MG TABLET PO (06:03)
[2020-01-31] MEDS: LEVOTHYROXINE SODIUM 88 MCG TABLET PO (06:03)
[2020-01-31 08:00] VITALS: BP 120/60; PULSE 68; RESP 18; TEMP 36.8; O2SAT 98
[2020-01-31] MEDS: MELOXICAM 7.5 MG TABLET 15 MG PO (08:41)
[2020-01-31] MEDS: predniSONE 5 MG TABLET 2.5 MG PO (08:41)
[2020-01-31] MEDS: lisinopriL 5 MG TABLET 2.5 MG PO (08:41)
[2020-01-31] MEDS: LORATADINE 10 MG TABLET PO (08:41)
[2020-01-31] MEDS: FOLIC ACID 1 MG TABLET PO (08:41)
[2020-01-31] MEDS: ATORVASTATIN 40 MG TABLET PO (08:41)
[2020-01-31] MEDS: CHOLECALCIFEROL 400 UNITS TABLET (VIT D) PO ×2 (08:42→16:51)
[2020-01-31] MEDS: CALCIUM CARBONATE (OSCAL) 500 MG TABLET PO ×2 (08:42→16:51)
[2020-01-31] MEDS: TRIAMCINOLONE ACET 0.1% CREAM 15 GM TUBE 1 APPLIC TOPICAL (08:43)
[2020-01-31] MEDS: ASPIRIN 81 MG ENTERIC TABLET PO (08:44)
[2020-01-31] MEDS: HYDROCORTISONE 1% 30 GM CREAM 1 APPLIC TOPICAL ×2 (08:45→21:51)
[2020-01-31] MEDS: ACETAMINOPHEN 325 MG TABLET 650 MG PO (09:33)
[2020-01-31 15:25] VITALS: BP 126/52; PULSE 64; RESP 16; TEMP 36.6; O2SAT 99
--- NOTE | 2020-01-31 21:51 | PC.NURSE ---
pt appears to be sleeping, hob up, no s/sx of distress, breathing even, call light in reach
[2020-02-01] VITALS: BP 101/49; PULSE 60; RESP 20; TEMP 36.8; O2SAT 97
--- NOTE | 2020-02-01 01:10 | PC.NURSE ---
Pt asleep and no signs of discomfort noted.
--- NOTE | 2020-02-01 02:20 | PC.NURSE ---
Pt asleep and no signs of discomfort noted.
--- NOTE | 2020-02-01 03:11 | PC.NURSE ---
Pt asleep and no signs of discomfort noted.
--- NOTE | 2020-02-01 04:55 | PC.NURSE ---
Pt asleep and no signs of discomfort noted.
[2020-02-01] MEDS: ACETAMINOPHEN 325 MG TABLET 650 MG PO (05:33)
--- NOTE | 2020-02-01 05:55 | PC.NURSE ---
0520 pt up to the bathroom with her walker and assist of one. Pt voided and returned to bed with her walker and assist of one. Pt c/o lower back and left hip pain at this time.
--- NOTE | 2020-02-01 05:59 | PC.NURSE ---
0533 Pt given tylenol 650 mg PO to relieve c/o back and hip pain.
[2020-02-01] MEDS: PANTOPRAZOLE 40 MG TABLET PO (06:25)
[2020-02-01] MEDS: LEVOTHYROXINE SODIUM 88 MCG TABLET PO (06:25)
--- NOTE | 2020-02-01 06:35 | PC.NURSE ---
0625 Pt given levothyroxine 88 mcg and protonix 40 mg PO as ordered. Pt states the tylenol did help relieve her back pain and doesnt voice any c/o back pain at this time.
[2020-02-01 08:00] VITALS: BP 140/56; PULSE 58; RESP 16; TEMP 36.6; O2SAT 99
[2020-02-01] MEDS: ASPIRIN 81 MG ENTERIC TABLET PO (08:13)
[2020-02-01] MEDS: MELOXICAM 7.5 MG TABLET 15 MG PO (08:13)
[2020-02-01] MEDS: METHOTREXATE 2.5 MG TAB (*CHEMO) 10 MG PO ×2 (08:13→16:31)
[2020-02-01] MEDS: LORATADINE 10 MG TABLET PO (08:14)
[2020-02-01] MEDS: ATORVASTATIN 40 MG TABLET PO (08:14)
[2020-02-01] MEDS: CHOLECALCIFEROL 400 UNITS TABLET (VIT D) PO ×2 (08:14→16:26)
[2020-02-01] MEDS: lisinopriL 5 MG TABLET 2.5 MG PO (08:14)
[2020-02-01] MEDS: predniSONE 5 MG TABLET 2.5 MG PO (08:14)
[2020-02-01] MEDS: CALCIUM CARBONATE (OSCAL) 500 MG TABLET PO ×2 (08:14→16:26)
[2020-02-01] MEDS: TRIAMCINOLONE ACET 0.1% CREAM 15 GM TUBE 1 APPLIC TOPICAL (08:15)
[2020-02-01] MEDS: HYDROCORTISONE 1% 30 GM CREAM 1 APPLIC TOPICAL (08:15)
[2020-02-01 16:00] VITALS: BP 136/58; PULSE 64; RESP 16; TEMP 36.1; O2SAT 98
[2020-02-01] MEDS: CALCIUM CARBONATE (TUMS) 500 MG (200 MG ELEMENTAL) 400 MG PO (18:43)
--- NOTE | 2020-02-01 22:48 | PC.NURSE ---
pt sleeping, no evidence of distress noted
[2020-02-02] VITALS: BP 140/59; PULSE 57; RESP 18; TEMP 36.3; O2SAT 98
[2020-02-02] MEDS: PANTOPRAZOLE 40 MG TABLET PO (05:40)
[2020-02-02] MEDS: LEVOTHYROXINE SODIUM 88 MCG TABLET PO (05:40)
[2020-02-02 07:45] VITALS: BP 103/64; PULSE 80; RESP 18; TEMP 36.7; O2SAT 98
[2020-02-02] MEDS: MELOXICAM 7.5 MG TABLET 15 MG PO (08:55)
[2020-02-02] MEDS: predniSONE 5 MG TABLET 2.5 MG PO (08:55)
[2020-02-02] MEDS: ATORVASTATIN 40 MG TABLET PO (08:56)
[2020-02-02] MEDS: CHOLECALCIFEROL 400 UNITS TABLET (VIT D) PO ×2 (08:56→16:25)
[2020-02-02] MEDS: lisinopriL 5 MG TABLET 2.5 MG PO (08:56)
[2020-02-02] MEDS: ASPIRIN 81 MG ENTERIC TABLET PO (08:56)
[2020-02-02] MEDS: FOLIC ACID 1 MG TABLET PO (08:56)
[2020-02-02] MEDS: HYDROCORTISONE 1% 30 GM CREAM 1 APPLIC TOPICAL (08:57)
[2020-02-02] MEDS: CALCIUM CARBONATE (OSCAL) 500 MG TABLET PO ×2 (08:57→16:25)
[2020-02-02] MEDS: LORATADINE 10 MG TABLET PO (08:57)
[2020-02-02] MEDS: TRIAMCINOLONE ACET 0.1% CREAM 15 GM TUBE 1 APPLIC TOPICAL (08:58)
[2020-02-02] MEDS: CALCIUM CARBONATE (TUMS) 500 MG (200 MG ELEMENTAL) 400 MG PO (13:30)
--- NOTE | 2020-02-02 13:30 | PC.NURSE ---
Working with OT department
[2020-02-02 16:00] VITALS: BP 160/66; PULSE 66; RESP 18; TEMP 36.8; O2SAT 98
[2020-02-03] VITALS: BP 141/79; PULSE 97; RESP 18; TEMP 36.3; O2SAT 99
[2020-02-03] MEDS: PANTOPRAZOLE 40 MG TABLET PO (06:14)
[2020-02-03] MEDS: LEVOTHYROXINE SODIUM 88 MCG TABLET PO (06:14)
[2020-02-03 07:20] VITALS: BP 149/65; PULSE 59; RESP 18; TEMP 36.8; O2SAT 100
[2020-02-03] MEDS: LORATADINE 10 MG TABLET PO (08:54)
[2020-02-03] MEDS: CALCIUM CARBONATE (OSCAL) 500 MG TABLET PO (08:54)
[2020-02-03] MEDS: CHOLECALCIFEROL 400 UNITS TABLET (VIT D) PO (08:54)
[2020-02-03] MEDS: ATORVASTATIN 40 MG TABLET PO (08:54)
[2020-02-03] MEDS: ASPIRIN 81 MG ENTERIC TABLET PO (08:54)
[2020-02-03] MEDS: FOLIC ACID 1 MG TABLET PO (08:54)
[2020-02-03] MEDS: lisinopriL 5 MG TABLET 2.5 MG PO (08:55)
[2020-02-03] MEDS: MELOXICAM 7.5 MG TABLET 15 MG PO (08:55)
[2020-02-03] MEDS: TRIAMCINOLONE ACET 0.1% CREAM 15 GM TUBE 1 APPLIC TOPICAL (08:55)
[2020-02-03] MEDS: HYDROCORTISONE 1% 30 GM CREAM 1 APPLIC TOPICAL (08:55)
[2020-02-03] MEDS: predniSONE 5 MG TABLET 2.5 MG PO (08:55)
--- NOTE | 2020-02-03 13:34 | P.DS_ITS ---
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 indicat PAD * patient started on aspirin 81 mg, atorvastatin 40 mg , discontinued lisinopril, as this patient would benefit more from [place] due to her level of significant PAD * bone scan and CT negative for osteomyelitis * bone scan did indicate cellulitis * patient received clindamycin IV for 3 days while in-patient and developed a rash is results. patient did receive approximately 7 days of p.o. antibiotics before admission. * leg is currently improved at this time but with her level of PAD the ulceration may easily return, and it is important that she follow-up with a vascular surgeon. . (2) Cellulitis: Qualifiers: Laterality: left Site of cellulitis: extremity Site of cellulitis of extremity: lower extremity Qualified Code(s): L03.116 - Cellulitis of left lower limb Code(s): L03.90 - Cellulitis, unspecified Status: Acute Assessment and Plan: * bone scan indicates cellulites * patient completed 3 days IV clindamycin . antibiotic discontinued due to rash. before admission patient's completed approximately 7 days of p.o. antibiotics * blood culture preliminary no growth,wound culture final results no growth and urine cultures with normal oralia * gout r/o -uric acid level WNL * last wbc wnl, patient afebrile last CRP within normal limits * leg is currently improved at this time but with her level of PAD the ulceration may easily return, and it is important that she follow-up with a vascular surgeon. (3) Rheumatoid arthritis: Code(s): M06.9 - Rheumatoid arthritis, unspecified Status: Acute Assessment and Plan: * continue swing bed rehab * continue PT and OT * continue pain medication (4) Weakness: Code(s): R53.1 - Weakness Status: Acute Assessment and Plan: * weakness secondary to cellulitis and PAD * Exhibit tolerance during physical activity as evidenced by a normal fluctuation of vital signs during physical activity. * Patient will be ability to perform required activities of daily living. * Provide appropriate nutrition for healing and strength. * Use appropriate to prevent falls. * Continue physical therapy/occupational therapy. (5) PAD (peripheral artery disease): Code(s): I73.9 - Peripheral vascular disease, unspecified Status: Acute Assessment and Plan: * arterial scan indicates left-sided arterial occlusive disease. * started patient on aspirin 81 mg atorvastatin 40 mg , discontinued lisinopril, as this patient would benefit more from [place] due to her level of significant PAD * continue physical therapy are per occupational therapy. * patient will need to follow-up with primary care physician after discharge * leg is currently improved at this time but with her level of PAD the ulceration may easily return, and it is important that she follow-up with a vascular surgeon. DS: Summary Time Spent with Patient Time attestation: Total time spent providing
--- NOTE | 2020-02-03 13:34 | PM.DS ---
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 indicat PAD patient started on aspirin 81 mg, atorvastatin 40 mg , discontinued lisinopril, as this patient would benefit more from [place] due to her level of significant PAD bone scan and CT negative for osteomyelitis bone scan did indicate cellulitis patient received clindamycin IV for 3 days while in-patient and developed a rash is results. patient did receive approximately 7 days of p.o. antibiotics before admission. leg is currently improved at this time but with her level of PAD the ulceration may easily return, and it is important that she follow-up with a vascular surgeon. . (2) Cellulitis: Qualifiers: Laterality: left Site of cellulitis: extremity Site of cellulitis of extremity: lower extremity Qualified Code(s): L03.116 - Cellulitis of left lower limb Code(s): L03.90 - Cellulitis, unspecified Status: Acute Assessment and Plan: bone scan indicates cellulites patient completed 3 days IV clindamycin . antibiotic discontinued due to rash. before admission patient's completed approximately 7 days of p.o. antibiotics blood culture preliminary no growth,wound culture final results no growth and urine cultures with normal oralia gout r/o -uric acid level WNL last wbc wnl, patient afebrile last CRP within normal limits leg is currently improved at this time but with her level of PAD the ulceration may easily return, and it is important that she follow-up with a vascular surgeon. (3) Rheumatoid arthritis: Code(s): M06.9 - Rheumatoid arthritis, unspecified Status: Acute Assessment and Plan: continue swing bed rehab continue PT and OT continue pain medication (4) Weakness: Code(s): R53.1 - Weakness Status: Acute Assessment and Plan: weakness secondary to cellulitis and PAD Exhibit tolerance during physical activity as evidenced by a normal fluctuation of vital signs during physical activity. Patient will be ability to perform required activities of daily living. Provide appropriate nutrition for healing and strength. Use appropriate to prevent falls. Continue physical therapy/occupational therapy. (5) PAD (peripheral artery disease): Code(s): I73.9 - Peripheral vascular disease, unspecified Status: Acute Assessment and Plan: arterial scan indicates left-sided arterial occlusive disease. started patient on aspirin 81 mg atorvastatin 40 mg , discontinued lisinopril, as this patient would benefit more from [place] due to her level of significant PAD continue physical therapy are per occupational therapy. patient will need to follow-up with primary care physician after discharge leg is currently improved at this time but with her level of PAD the ulceration may easily return, and it is important that she follow-up with a vascular surgeon. DS: Summary Time Spent with Patient Time attestation: Total time spent providing and/or coordinating discharge services:>45 minutes Exam Const: General: comfortable and no acute distress Eyes: General: appearance normal, both eyes and all related structures Resp: Auscultation: clear to auscultation bilaterally Cardio: Rate: regular rate Rhythm: regular rhythm GI: Inspection: non-distended Auscultation: normal bowel sounds Skin: General skin exam: normal color and erythema
--- NOTE | 2020-02-03 14:30 | PC.NURSE ---
Patient is to be discharged home. Patient aware. All discharge instructions and education reviewed with patient. Patient states understanding. Patient has no IVs. All belongings gathered together and sent home with patient. Patient accompanied to front door via wheelchair by this nurse. Left via private vehicle with [id number]. All questions answered. Patient reports no further questions at discharge.
--- NOTE | 2020-02-04 01:38 | PM.EVENT ---
Event Note Event Note Event Note: Patient states she feels well and ready to go home. Alert and oriented. Dressed sitting at bedside. Lungs look clear to auscultation bilaterally. Regular rate rhythm. Extremities are warm dry and pink with minimal edema and no tenderness. Discharge today as planned. I have examined the patient and reviewed the chart. I discussed the patient with A Collins TONEY and agree with her assessment and plan.
== END 2020-02-03 14:30 | disposition home or self-care (01) | DRG 603 ==
PROVIDERS: Nurse Practitioner; Admitting Provider Family Medicine; PCP Family Medicine; Visit Provider Family Medicine
DX: L03.116 Cellulitis of left lower limb (principal); L97.829 Non-pressure chronic ulcer of other part of left lower leg with unspecified severity; I70.25 Atherosclerosis of native arteries of other extremities with ulceration; M06.9 Rheumatoid arthritis, unspecified; I70.248 Atherosclerosis of native arteries of left leg with ulceration of other part of lower leg; R21 Rash and other nonspecific skin eruption
CPT/HCPCS: 36415; 80053; 85027; 85652; 97110; 97161; 97165; 97530; 97535; A9270; J1200; J2930; J7512

== ENCOUNTER 2020-02-13 11:21 | Outpatient (CLI) | payer MEDICARE, MEDICAID, SELFPAY ==
--- NOTE | ~2020-02-13 | US_ITS ---
EXAMINATION: US venous doppler [facility] DATE: 02/13/2020 12:23 INDICATION: Left lower limb swelling. TECHNIQUE: Grayscale ultrasound images without and with compression and Doppler ultrasound images of the left lower extremity veins were obtained. COMPARISON: Ultrasound 01/19/2020 FINDINGS: The visualized portions of left common femoral vein, profunda (deep) femoral vein, femoral vein, popl iteal vein, peroneal veins, posterior tibial veins, and greater saphenous vein outflow are patent. Th ere is a small Winston's cyst. IMPRESSION: 1. No deep venous thrombosis. 2. Small left Winston's cyst. Reviewed, dictated and finalized at location E.
== END 2020-02-13 11:22 | disposition home or self-care (01) ==
LOC: CHSIMG 11:24
PROVIDERS: PCP Family Medicine; Visit Provider Nurse Practitioner Family
DX: M79.89 Other specified soft tissue disorders (principal)
CPT/HCPCS: 93971

== ENCOUNTER 2020-04-03 22:46 | Emergency (ER) | payer MEDICARE, MEDICAID, SELFPAY ==
--- NOTE | ~2020-04-03 | XR_ITS ---
XR knee RT 3V 04/03/2020 23:52 Indication: Right knee pain after fall Procedure: 5 views right knee Comparison: 01/21/2020 Findings: There is a right total knee arthroplasty. There is lucency at the cement bone interface, ti bial aspect of the prosthesis. Cannot exclude loosening. No acute fracture is identified. No signific ant joint effusion. Impression: 1: No acute fracture. Reviewed, dictated and finalized at location A. Impression: 1: No acute fracture.
[2020-04-03 22:50] VITALS: BP 165/80; PULSE 80; RESP 18; TEMP 36.4; O2SAT 98
--- NOTE | 2020-04-03 23:30 | ED.LOWEXIN ---
HPI - Extremity Injury (Lower) General Chief Complaint: Extremity Injury, Lower Stated Complaint: amb Time Seen by Provider: 04/03/20 23:30 Source: patient Mode of arrival: EMS Limitations: no limitations History of Present Illness HPI Narrative: 73-year-old woman history of right total knee arthroplasty comes in today complaining of right knee pain after she slid off the edge of her bed this evening and had her knee folded under her. She states that she had difficulty standing so she pressed her medical alert button and the impact he lets came to get her and brought her here. She denies any numbness or tingling. She states her knee feels stiff but she can move it. She denies any other injury and had no precedent shortness of breath, chest pain, weakness, lightheadedness or loss of consciousness. MD complaint: knee injury Onset (ago): hour(s) (1) Injury: Right: knee Type of Injury: hyperflexion Place: home Severity: moderate Relieving factors: rest Exacerbating factors: movement Associated symptoms: snap/pop sensation Other symptoms: none Related Data Home Medications Medication Instructions Recorded Confirmed calcium carbonate 600 mg calcium 600 mg PO BID 08/02/19 04/03/20 (1,500 mg) tablet cholecalciferol (vitamin D3) 10 400 unit PO BID cap 08/02/19 04/03/20 mcg (400 unit) capsule meloxicam 15 mg tablet 15 mg PO DAILY 08/02/19 04/03/20 prednisone 2.5 mg tablet 2.5 mg PO DAILY 08/02/19 04/03/20 Allergies Allergy/AdvReac Type Severity Reaction Status Date / Time clindamycin Allergy Severe RASH Verified 02/13/20 10:45 amoxicillin [Augmentin] Allergy Intermediate Unknown Verified 02/13/20 10:45 clavulanic acid [Augmentin] Allergy Intermediate Unknown Verified 02/13/20 10:45 Sulfa (Sulfonamide Allergy Unknown Unknown Verified 02/13/20 10:45 Antibiotics) Sulfonamides Allergy Intermediate Unknown Uncoded 02/13/20 10:45 Review of Systems Constitutional: Constitutional: Denies chills and Denies fever(s) Eyes: Eyes: Denies photophobia ENT: Denies dysphagia, Denies nasal congestion and Denies sore throat Cardiovascular: Cardiovascular: Denies chest pain and Denies radiating jaw, neck or arm pain Respiratory: Respiratory: Denies cough, Denies dyspnea and Denies wheezing Gastrointestinal: Gastrointestinal: Denies abdominal pain, Denies diarrhea, Denies nausea and Denies vomiting Genitourinary: Genitourinary: Denies nocturia and Denies dysuria Musculoskeletal: Musculoskeletal: Denies back pain, Reports arthralgias, Reports joint swelling and Denies muscle cramps Integumentary/Breasts: Skin/Breast: Denies pruritus, Denies rash and Denies skin ulcer Neurologic: Denies vertigo, Denies dizziness, Denies syncope, Denies focal weakness, Denies numbness and Denies weakness Hematologic/Lymphatic: Hematologic/Lymphatic: Denies easy bleeding and Denies easy bruising Allergic/Immunologic: Allergic/Immunologic: Denies lip swelling and Denies wheezing PMFSH Past Medical History Medical History Cervical arthritis Chronic low back pain Hypothyroidism Iron deficiency anemia Osteopenia Rheumatoid arthritis Social History Social History Smoking status: Never smoker Alcohol intake: never Substance use: never Gender identity (if verbalized by the patient): Female Spiritual care concerns: No Exam Const: General: healthy appearing, no acute distress and alert Orientation/consciousness: patient oriented x3 HENMT: Head: normal to inspection Face and sinus: normal facial exam Mouth: Yes moist mucous membranes Throat: posterior oropharynx normal Eyes: Conjunctivae: conjunctivae normal Pupils: Equal, round and reactive pupils present EOM: EOMs intact bilaterally Resp: Effort & Inspection: normal respiratory effort and not labored Auscultation: clear to auscultation bilaterally, no rales, no
--- NOTE | 2020-04-04 00:33 | PC.NURSE ---
Pt. refused use of knee immobilizer because it is too bulky and states she won't be able to walk and may fall. Norm wrap applied and pt. denies any pain c walking or movement.
[2020-04-04 00:35] VITALS: BP 148/90; PULSE 85; RESP 20; TEMP 36.4; O2SAT 98
== END 2020-04-04 00:40 | disposition home or self-care (01) ==
PROVIDERS: Emergency Provider Emergency Medicine; PCP Nurse Practitioner Family
DX: S89.91XA Unspecified injury of right lower leg, initial encounter (principal); W06.XXXA Fall from bed, initial encounter
CPT/HCPCS: 73562; 99282; 99283

== ENCOUNTER 2020-05-25 15:30 | Outpatient (CLI) | payer MEDICARE, MEDICAID, SELFPAY ==
--- NOTE | ~2020-05-25 | XR_ITS ---
EXAMINATION: XR_[id number]_CR DATE: 05/25/2020 16:29 INDICATION: Neck pain. TECHNIQUE: 3 views of cervical spine on 5 radiographs were obtained. COMPARISON: Cervical spine radiographs 10/19/2017, cervical spine CT 10/19/2017 FINDINGS: There is a 2 degrees levoscoliosis of cervicothoracic spine. There is 5 mm anterolisthesis of C4 on C5, 2 mm retrolisthesis of C5 on C6 and C6 on C7, and 2 mm anterolisthesis of C7 on T1. Ther e is interbody fusion at C3-C4. There is severely decreased disc height from C4-C5 through C6-C7. The re is multilevel severe uncovertebral joint and facet joint osteoarthritis. There is moderate central canal stenosis at C4-C5 and mild central canal stenosis at C5-C6 and C6-C7. No prevertebral soft tis maru swelling. IMPRESSION: 1. Severe cervical spondylosis. Reviewed, dictated and finalized at location A.
--- NOTE | ~2020-05-25 | XR_ITS ---
EXAMINATION: XR shoulder RT min 2V DATE: 05/25/2020 16:29 INDICATION: Right shoulder pain. TECHNIQUE: 4 views of right shoulder were obtained. COMPARISON: Right humerus radiographs 03/07/2010 FINDINGS: There is superior subluxation of humeral head with respect to glenoid with narrowing of the subacromial space, consistent with rotator cuff tear. No fracture. There is severe osteoarthritis of glenohumeral joint and mild osteoarthritis of acromioclavicular joint. IMPRESSION: 1. Severe glenohumeral joint osteoarthritis. 2. Rotator cuff tear. Reviewed, dictated and finalized at location A.
== END 2020-05-25 15:31 | disposition home or self-care (01) ==
PROVIDERS: PCP Family Medicine; Visit Provider Family Medicine
DX: M47.812 Spondylosis without myelopathy or radiculopathy, cervical region (principal); M54.2 Cervicalgia; M25.511 Pain in right shoulder
CPT/HCPCS: 72040; 73030

== ENCOUNTER 2020-06-16 09:33 | Emergency (ER) | payer MEDICARE, MEDICAID, SELFPAY ==
[2020-06-16 09:46] VITALS: BP 110/60; PULSE 70; RESP 16; TEMP 37; O2SAT 95
[2020-06-16] MEDS: SODIUM CHLORIDE 0.9% IV 1,000 ML 999 ML IV CONT (10:09)
[2020-06-16 10:10] LABS: Appearance Urine Clear (Clear); Bilirubin Urine Negative (Negative); Color Urine Yellow (Yellow); Glucose Urine UA Negative (Negative); Hematocrit 37.5 % (35.0-42.0); Hemoglobin 12.4 g/dL (11.7-13.8); Ketones Urine Trace (Negative); Leukocyte Esterase Ur Negative (Negative); Mean Corpuscular HGB Conc 33.1 g/dL (32.0-36.0); Mean Corpuscular Hemoglobin 32.1 pg (27.0-31.0); Mean Corpuscular Volume 97.2 fL (78.0-102.0); Mean Platelet Volume 9.6 fl (9.2-11.8); Nitrate Urine Negative (Negative); Platelet Count Result 245 K/mm3 (150-420); Protein Urine Negative (Negative); Red Blood Count 3.86 M/mm3 (4.20-5.40); Red Cell Distribution Width 12.3 % (11.6-14.4); Specific Grav Ur 1.015 (1.010-1.020); Urobilinogen Urine 0.2 mg/dL (0.2-1.0); White Blood Count 7.3 K/mm3 (4.8-10.8)
[2020-06-16 10:16] LABS: Add Urine Microscopic? YES; Blood Urine Trace-Intact (Negative); RBC Urine 0-2 /hpf (0-2); Squamous Epithelial Cell Urine Rare /hpf (Few); WBC Urine 0-3 /hpf (0-3)
[2020-06-16 10:17] LABS: Bacteria Urine 1+ /hpf
[2020-06-16 10:20] LABS: Influenza Control Valid (Valid)
[2020-06-16 10:26] LABS: Alanine Aminotransferase 30 U/L (14-59); Alkaline Phosphatase 108 U/L (46-116); Anion Gap 13 mmol/L (8-16); Aspartate Amino Transferase 22 U/L (15-37); Bilirubin,Total 0.4 mg/dL (0.00-1.00); Blood Urea Nitrogen 28 mg/dL (7-18); Calcium 9.6 mg/dL (8.5-10.1); Carbon Dioxide 23 mmol/L (21-32); Chloride 104 mmol/L (98-108); Estimated CRCL calculation 42 ml/min; Estimated Glomerular Filt Rate > 60; Glucose 88 mg/dL (70-99); Osmolality Calculated 294 mOsm/kg (285-295); Potassium 3.8 mmol/L (3.5-5.1); Sodium 140 mmol/L (136-145); Total Protein 7.8 g/dL (6.4-8.2)
--- NOTE | 2020-06-16 10:50 | ED.ABDPAIN ---
HPI - Abdominal Pain General Chief Complaint: Abdominal Pain Stated Complaint: possible COVID Source: patient Mode of arrival: EMS Limitations: no limitations History of Present Illness HPI narrative: this is a 75-year-old female presents via EMS after she called earlier today because of crampy abdominal pain with fever that she has been having off and on with a rash on the left side of her back which appears to be shingles, currently no fever no abdominal pain no nausea or vomiting no chest pain no shortness of breath no headaches no blurry vision. She was having abdominal pain but currently is some pain-free with no diarrhea or constipation. MD elicited complaint: abdominal pain Onset (ago): unknown ( abdominal pain resolved) Pain Consistency: now resolved Location: none Related Data Home Medications Medication Instructions Recorded Confirmed calcium carbonate 600 mg calcium 600 mg PO BID 08/02/19 05/25/20 (1,500 mg) tablet cholecalciferol (vitamin D3) 10 400 unit PO BID cap 08/02/19 05/25/20 mcg (400 unit) capsule meloxicam 15 mg tablet 15 mg PO DAILY 08/02/19 05/25/20 prednisone 2.5 mg tablet 2.5 mg PO DAILY 08/02/19 05/25/20 collagenase clostridium histo. 250 1 applic TOPICAL DAILY 04/16/20 05/25/20 unit/gram topical ointment folic acid 1 mg tablet 1 mg PO DAILY 04/16/20 05/25/20 Allergies Allergy/AdvReac Type Severity Reaction Status Date / Time clindamycin Allergy Severe RASH Verified 05/25/20 14:56 amoxicillin [Augmentin] Allergy Intermediate Unknown Verified 05/25/20 14:56 clavulanic acid [Augmentin] Allergy Intermediate Unknown Verified 05/25/20 14:56 Sulfa (Sulfonamide Allergy Unknown Unknown Verified 05/25/20 14:56 Antibiotics) Sulfonamides Allergy Intermediate Unknown Uncoded 02/13/20 10:45 Review of Systems Review of Systems: All systems reviewed & are unremarkable except as noted in HPI and below PMFSH Past Medical History Medical History Cervical arthritis Chronic low back pain Hypothyroidism Iron deficiency anemia Osteopenia Rheumatoid arthritis Family History Family History Mother Hypertension Brother Hypertension Other Diabetes mellitus Social History Social History Smoking status: Never smoker Alcohol intake: never Substance use: never Gender identity (if verbalized by the patient): Female Spiritual care concerns: No Exam Const: General: no acute distress Orientation/consciousness: patient oriented x3 HENMT: Head: normal to inspection Eyes: Conjunctivae: conjunctivae normal Pupils: Equal, round and reactive pupils present EOM: EOMs intact bilaterally Neck: Neck: normal visual inspection and no lymphadenopathy Chest: Chest palpation & inspection: normal inspection of the chest Resp: Effort & Inspection: normal respiratory effort Auscultation: clear to auscultation bilaterally Cardio: Rate: regular rate Rhythm: regular rhythm GI: GI Palp: Yes Soft to palpation Percussion: Yes normal to percussion : General: Yes no CVA tenderness Skin: General skin exam: normal color Rashes: no rashes Neuro: General: patient oriented x3, moves all extremities and no meningeal signs Extrem: General: normal to inspection and no pedal edema Psych: Mental Status: mental status grossly normal Affect: normal affect Course Course Emergency Course: reassessment of patient currently asymptomatic with no fever chills no abdominal pain no nausea vomiting. The patient is receiving IV fluids and was told that she was positive for influenza and will receive a dose of Tamiflu, and with some evidence of shingles will give her a dose of acyclovir. The patient wanted to stay overnight in the hospital, but no evidence of needing admission at this time. Advised that we will be sending medication to
[2020-06-16] MEDS: ACYCLOVIR 200 MG CAPSULE 400 MG PO (11:12)
[2020-06-16] MEDS: OSELTAMIVIR PHOSPHATE 75 MG CAPSULE PO (11:12)
[2020-06-16 12:00] VITALS: BP 119/60; RESP 18; O2SAT 96
[2020-06-18 18:17] LABS: SARS-CoV-2 RNA PCR Negative
== END 2020-06-16 12:00 | disposition home or self-care (01) ==
PROVIDERS: Emergency Provider Emergency Medicine; PCP Family Medicine
DX: J11.1 Influenza due to unidentified influenza virus with other respiratory manifestations (principal); B02.8 Zoster with other complications; Z20.828 Contact with and (suspected) exposure to other viral communicable diseases; E03.9 Hypothyroidism, unspecified; M06.9 Rheumatoid arthritis, unspecified
CPT/HCPCS: 80053; 81001; 85027; 87635; 87804; 96360; 96361; 99283; A9270; C9803; J7030; U0003

== ENCOUNTER 2020-11-14 11:53 | Outpatient (CLI) | payer MEDICARE, MEDICAID, SELFPAY ==
--- NOTE | ~2020-11-14 | XR_ITS ---
EXAMINATION: XR knee RT 2V DATE: 11/14/2020 12:20 INDICATION: Right knee pain. TECHNIQUE: 2 views of right knee were obtained. COMPARISON: Right knee radiographs 04/03/2020, 06/26/2013 FINDINGS: There is a total right knee arthroplasty with patellar resurfacing in near-anatomic alignme nt. No periprosthetic lucency to suggest loosening or infection. No fracture. There is no knee joint effusion. IMPRESSION: 1. Total right knee arthroplasty in near-anatomic alignment. Reviewed, dictated and finalized at location A. CHANGEOVER OPERATOR
== END 2020-11-14 11:54 | disposition home or self-care (01) ==
LOC: CHSIMG 11:56
PROVIDERS: PCP Nurse Practitioner Family; Visit Provider Nurse Practitioner Family
DX: M25.561 Pain in right knee (principal)
CPT/HCPCS: 73560

== ENCOUNTER 2020-11-15 13:21 | Observation (INO) | payer MEDICARE, MEDICAID, SELFPAY ==
[2020-11-15] VITALS (8 sets, daily range): BP systolic 124–155; BP diastolic 59–84; PULSE 70–88; RESP 15–18; TEMP 36.6–37.2; O2SAT 96–99; BMI 18.3
--- NOTE | ~2020-11-15 | XR_ITS ---
XR chest 2V 11/15/2020 15:09 Indication: Elevated d-dimer. Procedure: AP and lateral views of the chest Comparison: 11/10/2011 Findings: Heart size is normal. There are chronic interstitial infiltrates of the lung bases. No acut e focal pneumonia, edema or effusion. Calcified granulomas are present bilaterally. No acute osseous abnormality. No pneumothorax. Impression: 1: No acute cardiopulmonary disease. Reviewed, dictated and finalized at location A. APPLIANCE SERVICER Impression: 1: No acute cardiopulmonary disease.
--- NOTE | ~2020-11-15 | XR_ITS ---
EXAMINATION: XR hip RT 2V w AP pelvis DATE: 11/15/2020 14:34 INDICATION: Right hip pain. Fall. TECHNIQUE: An anteroposterior view of the pelvis and 2 views of right hip were obtained. COMPARISON: Pelvis radiograph 11/25/2016 FINDINGS: There is lumbar dextroscoliosis and severe spondylosis. No fracture. Right hip joint space is normal. There is mild left hip osteoarthritis. IMPRESSION: 1. No fracture. Reviewed, dictated and finalized at location A. CH MAKER IMPRESSION: 1. No fracture.
--- NOTE | ~2020-11-15 | CT_ITS ---
EXAMINATION: CTA chest PE protocol EXAM DATE: 11/15/2020 15:40 INDICATION: Elevated D dimer elevated ddimer, troponin and abn EKG. TECHNIQUE: Spiral CTA of the chest (pulmonary arteries) was performed with 100 cc Omnipaque 350 intr avenous contrast injection. Images were acquired during the pulmonary arterial phase. Coronal maxi mum intensity projection 3D-reconstructions were created by the technologist on dedicated workstation . Axial, coronal and sagittal reformatted images were reviewed. The dose-length product (DLP) for t his examination was 165.24 mGy-cm. The exposure was tailored according to patient size (auto mA exp osure control), and iterative reconstruction (ASIR) was used as additional dose reduction technique. Comparison is made to prior examination from 03/22/2014. FINDINGS: Pulmonary arteries are well opacified and without intraluminal filling defects. No thora cic aortic dissection. There is mild emphysema and moderate hyperinflation. There is 4 mm noncalcifi ed right middle lobe nodule, several other smaller upper lobe noncalcified nodules, likely granulomat a. Cannot determine if these were present on the prior study. Some lingular bronchiectasis. There ar e no pleural or pericardial effusions. Tracheobronchial tree is patent. There is no mediastinal, hilar or axillary lymphadenopathy. There is no pneumothorax. Heart normal in size. There is mil d coronary arterial calcification, arterial sclerosis. Upper abdomen is unremarkable. No osteoblas tic or osteolytic lesions identified. IMPRESSION: 1. No pulmonary emboli or acute findings. 2. Emphysema and hyperinflation. 3. Scattered small nodules likely granulomata. Optional one-year follow-up low-dose chest CT. Reviewed, dictated and finalized at location B. QUE FURNITURE REPAIRER IMPRESSION: 1. No pulmonary emboli or acute findings. 2. Emphysema and hyperinflation. 3. Scattered small nodules likely granulomata. Optional one-year follow-up low -dose chest CT.
--- NOTE | 2020-11-15 13:34 | PC.NURSE ---
[place] FROM [facility]NAGEMENT CALLED FOR ASSISTANCE
--- NOTE | 2020-11-15 14:09 | ED.FALL ---
HPI - Fall General Chief Complaint: Fall Stated Complaint: ambulance Source: patient and EMS Mode of arrival: ambulatory History of Present Illness HPI Narrative: this is a 75-year-old female presents from from home after she sustained a fall earlier today was brought in by EMS complaining of right hip and pelvis and lower back pain. The patient apparently had an injury yesterday that involved her right knee that was x-rayed and had normal findings with no fractures. Although the patient does have some bruising on the medial aspect of her right knee, she had a fall today with not prolonged down time but did call EMS and was brought into the hospital. Patient states that she is having some mild right hip and lower back pain but has good range of motion although limited secondary to her history of osteoarthritis. Patient has no fever or chills no shortness of breath no chest pain no abdominal pain no dysuria no hematuria no head injuries. patient currently comfortable pain level about a 2/10 patient denies any chest pain or shortness of breath no abdominal pain no diaphoresis. MD complaint: fall Onset (ago): hour(s) Fall from: standing Fall witnessed: no Place fall occurred: home Loss of consciousness: none Length of LOC: minutes(s) Prolonged down time: no Symptoms prior to fall: none Context: other Location of injury: pelvis Related Data Home Medications Medication Instructions Recorded Confirmed acetaminophen 650 mg PO ONCE PRN 11/15/20 11/15/20 [id number] 1 tablet PO DAILY 11/15/20 11/15/20 [ADVANCED Calcium] cholecalciferol (vitamin D3) 50 mcg PO DAILY 11/15/20 11/15/20 folic acid 1 mg PO DAILY 11/15/20 11/15/20 levothyroxine 88 mcg PO DAILY 11/15/20 11/15/20 meloxicam 15 mg PO DAILY 11/15/20 11/15/20 methotrexate sodium 12.5 mg PO DAILY 11/15/20 11/15/20 prednisone 2.5 mg PO DAILY 11/15/20 11/15/20 Allergies Allergy/AdvReac Type Severity Reaction Status Date / Time clindamycin Allergy Severe RASH Verified 11/14/20 08:30 amoxicillin [Augmentin] Allergy Intermediate Unknown Verified 11/14/20 08:30 clavulanic acid [Augmentin] Allergy Intermediate Unknown Verified 11/14/20 08:30 Sulfa (Sulfonamide Allergy Unknown Unknown Verified 11/14/20 08:30 Antibiotics) Sulfonamides Allergy Intermediate Unknown Uncoded 11/14/20 08:30 Review of Systems Review of Systems: All systems reviewed & are unremarkable except as noted in HPI and below PMFSH Past Medical History Medical History Cervical arthritis Chronic low back pain Hypothyroidism Iron deficiency anemia Osteopenia Rheumatoid arthritis Family History Family History Mother Hypertension Brother Hypertension Other Diabetes mellitus Social History Social History Smoking status: Never smoker Alcohol intake: never Substance use: never Gender identity (if verbalized by the patient): Female Spiritual care concerns: No Exam Const: General: no acute distress Orientation/consciousness: patient oriented x3 HENMT: Head: normal to inspection Back/Spine/Pelvis: Back: no CVA tenderness Other: has good range of motion although limited in her the right hip and pelvis secondary to pain and osteoarthritis the patient is unable to stand. Skin: General skin exam: normal color Other: Bruising medial aspect of her right knee Neuro: General: patient oriented x3 Extrem: General: normal to inspection Psych: Appearance: grossly normal Mental Status: mental status grossly normal Affect: normal affect Course Course Emergency Course: Patient lives at home by herself and unable to to go home with a history of falls. The patient would need skilled rehab along with physical therapy and occupational therapy. EKG and some labs were reviewed with patient and found to
--- NOTE | 2020-11-15 14:10 | ECG_ITS ---
Measurements Intervals [place] Rate: 68 P: 69 AK: 148 QRS: -35 QRSD: 86 T: 59 QT: 436 QTc: 466 Interpretive Statements SINUS RHYTHM POSSIBLE LEFT ATRIAL ENLARGEMENT LEFT AXIS DEVIATION ANTEROSEPTAL INFARCT, AGE INDETERMINATE WITH SIMILAR ST ELEVATION IN V1-V3 SUGGESTING ANTEROSEPTAL MURAL ANEUERYSM BASELINE ARTIFACT- I, AVL, AVF, V5-V6 ABNORMAL ECG Electronically Signed On 11-15-2020 14:33:12 ROUGE SIFTER by Patricio Bowers D.O.
[2020-11-15 14:22] LABS: Appearance Urine Clear (Clear); Bilirubin Urine Negative (Negative); Color Urine Yellow (Yellow); Glucose Urine UA Negative (Negative); Ketones Urine Negative (Negative); Leukocyte Esterase Ur Negative (Negative); Nitrate Urine Negative (Negative); Protein Urine Negative (Negative); Specific Grav Ur <= 1.005 (1.010-1.020); Urobilinogen Urine 0.2 mg/dL (0.2-1.0); pH Urine 6.5 (5.0-8.0)
[2020-11-15 14:28] LABS: Anion Gap 14 mmol/L (8-16); Blood Urea Nitrogen 33 mg/dL (7-18); Calcium 9.9 mg/dL (8.5-10.1); Carbon Dioxide 23 mmol/L (21-32); Chloride 101 mmol/L (98-108); Creatine Kinase 369 U/L (26-192); Estimated Glomerular Filt Rate > 60; Glucose 91 mg/dL (70-99); Osmolality Calculated 293 mOsm/kg (285-295); Potassium 4.4 mmol/L (3.5-5.1); Sodium 138 mmol/L (136-145)
[2020-11-15 14:29] LABS: Troponin I 1198.4 ng/L (0.00-60.4)
[2020-11-15 14:39] LABS: Add Urine Microscopic? YES; Blood Urine Trace-Lysed (Negative)
[2020-11-15 14:40] LABS: RBC Urine 0-2 /hpf (0-2); WBC Urine 0-3 /hpf (0-3)
[2020-11-15 14:41] LABS: Bacteria Urine None seen /hpf
[2020-11-15] MEDS: ASPIRIN 81 MG CHEWABLE TABLET 324 MG (14:49)
[2020-11-15] MEDS: SODIUM CHLORIDE 0.9% IV 1,000 ML 999 ML IV CONT (14:49)
--- NOTE | 2020-11-15 14:50 | PCCCNOTE ---
Care Coordination spoke with pt about discharge plan. [facility] Faxed demographic sheet, insurance cards and ER MD note to [facility] at [facility] [phone]. [facility] [phone] will call after review of information and background check to let us know if she is accepted.
--- NOTE | 2020-11-15 14:55 | PCCCNOTE ---
Care Coordination notifed [facility] at [phone] that pt will be going to alf.
[2020-11-15 15:05] LABS: Lactic Acid Reflex 1.1 mmol/L (0.4-2.0)
[2020-11-15 15:16] LABS: D Dimer 0.73 mg/L (0.19-0.50)
--- NOTE | 2020-11-15 16:57 | ADMGEN ---
This patient, Laquita Mcfarlane, was admitted to 2nd Floor Room 204-2. Patient/family oriented to hospital policies and general routines including ID bracelet, bed and alarms, visiting hours, pain management, procedures, bathroom and other care routines, personal items, smoking policy, room service/diet, and visiting hours. Information on how to activate the Rapid Response Team has been discussed. Patient/Family are encouraged to report perceived risks to care and to ask questions if they do not understand what they are told or what they should do. Patient claims she is here d/t unable to care for self at home and has fell 2 times in the last 2 days. lungs clear. tele shows sr with rates of 70-80's. no open areas. has brusie on inside of r r knee. claims from fall yesterday. she got knee stuck in care givers car door. does stand with a mod assist and and walker to bsc and into recliner. lungs cta. sr on tele. jj karen rivera on. ivf cont.
[2020-11-15 17:28] LABS: Troponin I 1876.1 ng/L (0.00-60.4)
--- NOTE | 2020-11-15 17:30 | PC.NURSE ---
notified that patient's current Troponin Level is 1876.1. Patient denies chest pain. stated we will wait and see what next level result is.
--- NOTE | 2020-11-15 17:32 | PC.NURSE ---
1540 came to floor with a ivf running per gravity. hooked into iv pump @ 100ml/hr of ns.
--- NOTE | 2020-11-15 18:14 | PC.NURSE ---
1809 done with supper. ate entire lunch that was sent with her from er and supper. denies cp. has to have mod assist to get to her feet to use bsc and back into bed. can put her feet in bed. sr on tele with rates 70's. llab here to draw. gelacio latif
[2020-11-15 18:30] LABS: Basophils Absolute Auto 0.04 K/mm3 (0.00-0.10); Basophils Percent Auto 0.6 % (0.0-1.0); Eosinophils Absolute Auto 0.13 K/mm3 (0.02-0.50); Eosinophils Percent Auto 1.8 % (1.0-6.0); Hematocrit 37.6 % (35.0-42.0); Hemoglobin 12.3 g/dL (11.7-13.8); Immature Granulocyte Absolute 0.02 K/mm3 (0.00-0.00); Immature Granulocyte Percent A 0.3 % (0.0-0.0); Lymphocytes Absolute Auto 1.27 K/mm3 (1.10-4.50); Lymphocytes Percent Auto 17.5 % (18.0-42.0); Mean Corpuscular HGB Conc 32.7 g/dL (32.0-36.0); Mean Corpuscular Hemoglobin 32.4 pg (27.0-31.0); Mean Corpuscular Volume 98.9 fL (78.0-102.0); Mean Platelet Volume 9.9 fl (9.2-11.8); Monocytes Absolute Auto 1.04 K/mm3 (0.10-0.90); Monocytes Percent Auto 14.3 % (2.0-11.0); Neutrophils Absolute Auto 4.8 K/mm3 (1.7-7.2); Neutrophils Percent Auto 65.5 % (50.0-70.0); Platelet Count Result 228 K/mm3 (150-420); Red Cell Distribution Width 12.4 % (11.6-14.4); White Blood Count 7.3 K/mm3 (4.8-10.8)
[2020-11-15 18:43] LABS: Partial Thromboplastin Time 24.5 SEC (23.90-30.70); Prothrombin Time 10.7 Seconds (9.50-12.10)
[2020-11-15] MEDS: HEPARIN SODIUM 5,000 UNITS/ML VIAL 4000 UNITS IV PUSH (19:16)
[2020-11-15] MEDS: HEPARIN SOD/D5W 100 UNITS/ML 25,000 UNITS/250 ML BAG 6 UNITS IV CONT (19:20)
--- NOTE | 2020-11-15 19:20 | PC.NURSE ---
1910 norma at [facility] called with report. #20 started in l fa.
--- NOTE | 2020-11-15 19:24 | PC.NURSE ---
Heparin bolus of 3000 ml given per protocol at 191. Heparin gtt started at 1918. [facility] notified at 1923.
--- NOTE | 2020-11-15 20:16 | PC.NURSE ---
Patient transferred to [facility] room 206 bed B via [facility]. NS and heparin continued as ordered.Alert and oriented x3. Telemetry shows sinus rhythm. No pain at this time. transferred to [facility] without difficulty
[2020-11-15 20:20] LABS: Troponin I 2085.4 ng/L (0.00-60.4)
== END 2020-11-15 20:20 | disposition short-term general hospital (02) ==
LOC: CHSED 14:52 → CHS2ND 15:15
PROVIDERS: Admitting Provider Emergency Medicine; Emergency Provider Emergency Medicine; PCP Nurse Practitioner Family; Visit Provider Emergency Medicine
DX: R53.1 Weakness (principal); R77.8 Other specified abnormalities of plasma proteins; D50.9 Iron deficiency anemia, unspecified; E03.9 Hypothyroidism, unspecified; M85.80 Other specified disorders of bone density and structure, unspecified site; M47.812 Spondylosis without myelopathy or radiculopathy, cervical region; M06.9 Rheumatoid arthritis, unspecified; M54.5 Low back pain; G89.29 Other chronic pain; W19.XXXA Unspecified fall, initial encounter; Z91.81 History of falling
CPT/HCPCS: 36415; 71046; 71275; 73502; 80048; 80076; 81001; 82550; 82565; 83605; 84484; 85025; 85380; 85610; 85730; 93005; 96360; 96361; 96365; 97161; 99285; A9270; G0378; J1644; J7030; Q9967

== ENCOUNTER 2020-11-15 13:40 | Outpatient (CLI) | payer MEDICARE, SELFPAY ==
[2020-11-15 13:49] LABS: Basophils Absolute Auto 0.04 K/mm3 (0.00-0.10); Basophils Percent Auto 0.6 % (0.0-1.0); Eosinophils Absolute Auto 0.07 K/mm3 (0.02-0.50); Eosinophils Percent Auto 1.1 % (1.0-6.0); Hematocrit 37.7 % (35.0-42.0); Hemoglobin 12.5 g/dL (11.7-13.8); Immature Granulocyte Absolute 0.01 K/mm3 (0.00-0.00); Immature Granulocyte Percent A 0.2 % (0.0-0.0); Lymphocytes Absolute Auto 1.01 K/mm3 (1.10-4.50); Lymphocytes Percent Auto 16.4 % (18.0-42.0); Mean Corpuscular HGB Conc 33.2 g/dL (32.0-36.0); Mean Corpuscular Hemoglobin 32.4 pg (27.0-31.0); Mean Corpuscular Volume 97.7 fL (78.0-102.0); Mean Platelet Volume 10.1 fl (9.2-11.8); Monocytes Absolute Auto 0.67 K/mm3 (0.10-0.90); Monocytes Percent Auto 10.9 % (2.0-11.0); Neutrophils Absolute Auto 4.4 K/mm3 (1.7-7.2); Neutrophils Percent Auto 70.8 % (50.0-70.0); Platelet Count Result 249 K/mm3 (150-420); Red Blood Count 3.86 M/mm3 (4.20-5.40); Red Cell Distribution Width 12.5 % (11.6-14.4); White Blood Count 6.2 K/mm3 (4.8-10.8)
[2020-11-15 14:10] LABS: Alanine Aminotransferase 43 U/L (14-59); Alkaline Phosphatase 96 U/L (46-116); Aspartate Amino Transferase 40 U/L (15-37); Bilirubin Direct 0.1 mg/dL (0-0.2); Bilirubin,Total 0.4 mg/dL (0.00-1.00); Estimated Glomerular Filt Rate > 60; Total Protein 7.1 g/dL (6.4-8.2)
== END 2020-11-15 13:41 | disposition home or self-care (01) ==
LOC: CHSLAB 13:42
PROVIDERS: PCP Nurse Practitioner Family; Visit Provider Internal Medicine Rheumatology
DX: Z79.899 Other long term (current) drug therapy (principal)
CPT/HCPCS: 36415; 80076; 82565; 85025

== ENCOUNTER 2020-11-15 20:47 | Inpatient (IN) | payer MEDICARE, MEDICAID, SELFPAY ==
[2020-11-15 20:37] VITALS: BP 144/69; PULSE 71; RESP 18; TEMP 36.4; O2SAT 97
--- NOTE | 2020-11-15 20:58 | ECG_ITS ---
Measurements Intervals [place] Rate: 74 P: 66 NV: 148 QRS: -29 QRSD: 87 T: 83 QT: 398 QTc: 444 Interpretive Statements SINUS RHYTHM WITH MARKED SINUS ARRHYTHMIA POSSIBLE LEFT ATRIAL ENLARGEMENT POSSIBLE LEFT VENTRICULAR HYPERTROPHY CANNOT RULE OUT SEPTAL INFARCT, AGE INDETERMINATE BASELINE ARTIFACT- I, II, AVR, AVL, AVF, V1-V6 ABNORMAL ECG Electronically Signed On 11-16-2020 7:23:55 SUPERVISOR HANGING AND TRIMMING by Patricio Bowers D.O.
--- NOTE | 2020-11-15 21:05 | ADMGEN ---
This patient, Laquita Mcfarlane, was admitted to IMU Room 206-02. Patient/family oriented to hospital policies and general routines including ID bracelet, bed and alarms, visiting hours, pain management, procedures, bathroom and other care routines, personal items, smoking policy, room service/diet, and visiting hours. Information on how to activate the Rapid Response Team has been discussed. Patient/Family are encouraged to report perceived risks to care and to ask questions if they do not understand what they are told or what they should do.
[2020-11-15 21:07] VITALS: BMI 18.1
[2020-11-15 21:15] VITALS: PULSE 76
--- NOTE | 2020-11-15 21:46 | PM.IMHP ---
H&P: HPI History of Present Illness Date/Time: 11/15/20 21:46 75-year-old female patient who has a history of rheumatoid arthritis and hypothyroidism. She was a direct admit from [facility]. She was seen by Dr. Puri. The patient was seen in the emergency room due of to a fall. The patient stated that her legs just gave out and 1 day she fell when she was trying to get into the car. Last night she was standing by her table and her legs gave out and she fell and hit her hip and was complaining of some hip pain. She was brought in by EMS. She has a call alert button which she used today. Patient has bruises to the InterStim aspects of both knees. Patient did not been prolonged time on the ground. She did not complain of any chest pain. She is chronically short of breath with exertion due to her emphysema. She does not wear oxygen at home. She denied any chest pain today. No fever no chills no cough. Her D-dimer was elevated today however her CT a pulmonary was negative for any PE. Troponin was only mildly elevated at 0.73. Her troponin was elevated to 1198.4 based on a scale of 0-60.4. The 2nd troponin was 2085.4. Initial EKG read by the EKG machine was noted to be sinus bradycardia with marked sinus arrhythmia. Anterior all septal infarction age indeterminate. It abnormal EKG. Is reported that Dr. Kwok read the EKG and noted that this is not a STEMI. Dr. razo was on-call and spoke with Dr. Puri this at [facility]. The patient was started on heparin drip. The patient has been transferred to [facility] from [facility]. The patient is being admitted into observation status the date of service 11/15/2020. Chief Complaint: Fall Review of Systems Review of Systems: All systems reviewed & are unremarkable except as noted in HPI and below Constitutional: Constitutional: Reports as per HPI and Reports no additional constitutional complaints Eyes: Eyes: Reports as per HPI and Reports no additional eye complaints ENT: Reports system reviewed and no additional complaints, except as documented and Reports Normal hearing present Cardiovascular: Cardiovascular: Reports no additional cardiovascular complaints Respiratory: Respiratory: Reports no additional respiratory complaints and Reports no additional respiratory complaints Gastrointestinal: Gastrointestinal: Reports as per HPI and Reports no additional gastrointestinal complaints Musculoskeletal: Musculoskeletal: Reports no additional musculoskeletal complaints Integumentary/Breasts: Skin/Breast: Reports system reviewed and no additional complaints, except as docu and Reports as per HPI Neurologic: Reports system reviewed and no additional complaints, except as documented, Reports as per HPI and Reports Normal hearing present Psychiatric: Psychiatric: Reports no additional psychiatric complaints and Reports as per HPI Endocrine: Endocrine: Reports no additional endocrine complaints Hematologic/Lymphatic: Hematologic/Lymphatic: Reports no additional hematologic/lymphatic complaints Allergic/Immunologic: Allergic/Immunologic: Reports no additional allergic/immunologic complaints COUNTS INCLUDE 234 BEDS AT THE [facility] Past Medical History Medical History (Updated 11/15/20 @ 22:02 by Yelena Chavez NP) Cervical arthritis Chronic low back pain Emphysema lung Hypothyroidism Iron deficiency anemia Osteopenia Rheumatoid arthritis 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 The patient stop taking seizure medicine after about 10 years and has not had seizures. This occurred during her child. Surgical History Surgical History (Updated 11/15/20 @ 22:01 by Yelena Chavez NP) H/O cervical polypectomy History of appendectomy Hx of total knee arthroplasty Family History Family History (Updated 11/15/20 @ 22:03 by Yelena Chavez NP) Mother Hypertension Myocardial infarction Brother Hypertension Diabetes mellitus Father Acute myocardial infarction Social His
[2020-11-15 22:00] VITALS: PULSE 73
[2020-11-15 22:15] LABS: Basophils Percent Auto 0.5 % (0.2-1.2); Eosinophils Absolute Auto 0.3 K/mm3 (0-0.3); Eosinophils Percent Auto 3.8 % (0-4.4); Hematocrit 36.8 % (37.0-47.0); Hemoglobin 12.3 g/dL (12.0-15.0); Immature Granulocyte Absolute 0.02 K/mm3 (0.00-0.031); Immature Granulocyte Percent A 0.3 % (0-0.5); Lymphocytes Absolute Auto 1.78 K/mm3 (0.9-3.2); Lymphocytes Percent Auto 22.7 % (18.3-44.2); Mean Corpuscular HGB Conc 33.4 g/dl (32-36); Mean Corpuscular Hemoglobin 32.7 pg (26-34); Mean Corpuscular Volume 97.9 fl (80-100); Mean Platelet Volume 10.1 fl (7.4-10.4); Monocytes Absolute Auto 1.1 K/mm3 (0.1-0.6); Monocytes Percent Auto 14.4 % (2.6-8.5); Neutrophils Absolute Auto 4.6 K/mm3 (1.3-6.7); Neutrophils Percent Auto 58.3 % (45.5-73.1); Platelet Count Result 221 k/mm3 (150-375); Red Blood Count 3.76 M/mm3 (4.2-5.4); Red Cell Distribution Width 12.6 % (11.5-14.5); White Blood Count 7.8 K/mm3 (4.5-10.0)
[2020-11-15 22:23] LABS: Prothrombin Time 13.4 Seconds (11.1-14.7)
[2020-11-15 22:27] LABS: Partial Thromboplastin Time 143.4 SECONDS (22.3-36.8)
[2020-11-15 22:30] LABS: Magnesium 1.8 mg/dL (1.6-2.3)
[2020-11-15 22:34] LABS: Add Urine Microscopic? NO; Appearance Urine Clear (Clear); Bilirubin Urine Negative (Negative); Blood Urine Negative (Negative); Color Urine Colorless (Yellow); Glucose Urine UA Negative (Negative); Ketones Urine Negative (Negative); Leukocyte Esterase Ur Negative LEU/UL (Negative); Nitrate Urine Negative (Negative); Protein Urine Negative (Negative); Specific Grav Ur 1.016 (1.001-1.035); Urobilinogen Urine Negative mg/dL (<2.0)
[2020-11-15 22:37] LABS: Cholesterol 218 mg/dL (0-200); HDL Direct 92 mg/dL; Triglycerides 62 mg/dL (<150)
[2020-11-15 22:49] LABS: LDL Cholesterol Direct 101 mg/dL
--- NOTE | 2020-11-15 22:49 | PC.NURSE ---
Heparin holding for the next 1 hour. Will be restarted at 5ml/hr, 500 units/hr.
[2020-11-15 23:46] VITALS: BP 108/52; PULSE 79; RESP 18; TEMP 36.7; O2SAT 98
[2020-11-16] VITALS (26 sets, daily range): BP systolic 90–163; BP diastolic 44–88; PULSE 54–94; RESP 16–19; TEMP 36.1–36.6; O2SAT 97–100; BMI 17.9
--- NOTE | 2020-11-16 | ECHO_ITS ---
Patient Info Name: Laquita Mcfarlane Age: 75 years : 1945 Gender: Female Ht: 65 in Wt: 109 lbs BSA: 1.50 m2 HR: 87 bpm BP: 125 / 60 mmHg Technical Quality: Fair Exam Date: 11/16/2020 1:41 PM Exam Location: [facility] Exam Room: [facility] Patient Status: Inpatient Admit Date: 11/16/2020 Staff Ordering Physician: Lamonte Schroeder MD It Technical Specialist: Gely Stahl RDCS Attending Provider: Lamonte Schroeder MD Referring Physician: Jack Nur MD; Exam Type: CA echo doppler color flow Study Info Indications - NSTEMI Complete two-dimensional, color flow and Doppler transthoracic echocardiogram is performed. History/Risk Factors Hypertension: No Dyslipidemia: No Congenital Heart Disease (CHD): No Peripheral Arterial Disease (PAD): No Myocardial Infarction ([place]): No Chronic Lung Disease: No Obesity: No Renal Disease: No Coronary Artery Disease (CAD) No Congestive Heart Failure (CHF): No Cardiomyopathy/LV Systolic Dysfunction: No Diabetes Mellitus: No COPD: No Tobacco Use: Never Cerebrovascular Disease: No Family History: Diabetes Mellitus Deep Vein Thrombosis (DVT): None Dialysis: None Frailty Scale (CSHA): 6: Moderately Frail Summary 1. Complete two-dimensional, color flow and Doppler transthoracic echocardiogram is performed. 2. Left ventricular systolic function is mildly reduced, estimated at 45-50%. 3. There is mildly increased left ventricular wall thickness. 4. There is mild aortic valve sclerosis. 5. There is mild aortic valve regurgitation. 6. There is mild tricuspid valve regurgitation. 7. Mild pulmonary hypertension, estimated pulmonary arterial systolic pressure is 38 mmHg. Left Ventricle Left ventricular chamber dimension is normal. Left ventricular systolic function is mildly reduced, estimated at 45-50%. There is mildly increased left ventricular wall thickness. Left ventricular septal wall motion is normal. The left ventricular diastolic function is normal. Right Ventricle Right ventricular chamber dimension is normal. Right ventricular systolic function is normal. Left Atria Left atrial chamber dimension is normal. Right Atria Right atrial chamber dimension is normal. Aortic Valve The aortic valve is trileaflet. There is mild aortic valve sclerosis. There is no aortic valve stenosis. There is mild aortic valve regurgitation. Pulmonic Valve The pulmonic valve is normal. There is no pulmonic valve stenosis. There is no pulmonic regurgitation. Mitral Valve The mitral valve has normal leaflets. There is no mitral valve stenosis. There is no mitral valve regurgitation. Tricuspid Valve The tricuspid valve leaflets are normal. There is no significant tricuspid valve stenosis. There is mild tricuspid valve regurgitation. Mild pulmonary hypertension, estimated pulmonary arterial systolic pressure is 38 mmHg. Pericardium/Pleural The pericardium appears normal. There is no pericardial effusion. Inferior Vena Cava Normal inferior vena cava with >50% collapse upon inspiration consistent with Empty right atrial pressure, 10 mmHg. Aorta The aortic root size at the sinus of Valsalva is normal. The prox ascending aorta size is normal. Left Ventricular Outflow Tract Name Value Normal ------
[2020-11-16] MEDS: HEPARIN SOD/D5W 100 UNITS/ML 25,000 UNITS/250 ML BAG IV CONT (00:43)
[2020-11-16] MEDS: MORPHINE SULFATE (*CRX) 2 MG/ML INJ IV PUSH (03:30)
[2020-11-16] MEDS: ONDANSETRON INJ 4 MG/2 ML VIAL IV PUSH ×2 (03:31→10:23)
[2020-11-16 04:58] LABS: Basophils Percent Auto 0.7 % (0.2-1.2); Eosinophils Absolute Auto 0.2 K/mm3 (0-0.3); Eosinophils Percent Auto 3.4 % (0-4.4); Hematocrit 36.5 % (37.0-47.0); Hemoglobin 11.9 g/dL (12.0-15.0); Immature Granulocyte Absolute 0.01 K/mm3 (0.00-0.031); Immature Granulocyte Percent A 0.2 % (0-0.5); Lymphocytes Absolute Auto 1.57 K/mm3 (0.9-3.2); Lymphocytes Percent Auto 28.3 % (18.3-44.2); Mean Corpuscular HGB Conc 32.6 g/dl (32-36); Mean Corpuscular Hemoglobin 32.3 pg (26-34); Mean Corpuscular Volume 99.2 fl (80-100); Mean Platelet Volume 10.2 fl (7.4-10.4); Monocytes Absolute Auto 0.9 K/mm3 (0.1-0.6); Monocytes Percent Auto 16.4 % (2.6-8.5); Neutrophils Absolute Auto 2.8 K/mm3 (1.3-6.7); Platelet Count Result 204 k/mm3 (150-375); Red Blood Count 3.68 M/mm3 (4.2-5.4); Red Cell Distribution Width 12.6 % (11.5-14.5); White Blood Count 5.6 K/mm3 (4.5-10.0)
[2020-11-16 05:08] LABS: Partial Thromboplastin Time 31.6 SECONDS (22.3-36.8)
[2020-11-16 05:09] LABS: Alanine Aminotransferase 27 U/L (4-35); Albumin Level 3.4 g/dL (3.5-5.1); Alkaline Phosphatase 80 U/L (38-126); Anion Gap 4 mmol/L (8-16); Aspartate Amino Transferase 46 U/L (14-36); Bilirubin,Total 0.3 mg/dL (0.2-1.3); Blood Urea Nitrogen 27 mg/dL (7-17); Calcium 8.3 mg/dL (8.4-10.2); Carbon Dioxide 26 mmol/L (22-30); Chloride 109 mmol/L (98-107); Estimated CRCL calculation 53 ml/min; Estimated Glomerular Filt Rate > 60; Glucose 87 mg/dL (65-105); Magnesium 1.8 mg/dL (1.6-2.3); Potassium 3.8 mmol/L (3.4-5.0); Sodium 139 mmol/L (137-145)
[2020-11-16 05:23] LABS: Troponin I 0.861 ng/mL (0.000-0.034)
[2020-11-16] MEDS: HEPARIN SODIUM 5,000 UNITS/ML VIAL 4000 UNITS IV PUSH (05:24)
[2020-11-16] MEDS: LEVOTHYROXINE SODIUM 88 MCG TABLET PO (06:07)
--- NOTE | 2020-11-16 08:15 | PM.CNCAR ---
Assessment and Plan Assessment and plan (1) NSTEMI (non-ST elevated myocardial infarction): Code(s): I21.4 - Non-ST elevation (NSTEMI) myocardial infarction Status: Acute Assessment and Plan: With symptoms of nausea and epigastric heaviness, EKGs and normal with possible old anteroseptal myocardial infarction, she has elevated troponin, agree with aspirin and heparin, will proceed with cardiac catheterization possibly today. The procedure was discussed with the patient, risks, benefits, and alternatives were explained (2) Swelling of left lower extremity: Code(s): M79.89 - Other specified soft tissue disorders Status: Acute (3) Atherosclerotic PVD with ulceration: Code(s): I70.209 - Unspecified atherosclerosis of [place] arteries of extremities, unspecified extremity; L98.499 - Non-pressure chronic ulcer of skin of other sites with unspecified severity Status: Acute (4) Venous insufficiency of left lower extremity: Code(s): I87.2 - Venous insufficiency (chronic) (peripheral) Status: Acute Assessment and Plan: Thank you for allowing me to participate in this patient's care, I will be following up with you. Please do not hesitate to call me for any other inquiry History of Present Illness History of Present Illness Consult date/time: 11/16/20 08:15 75 years old lady with history of hypertension, history of hypothyroidism, was transferred to this hospital because of elevated troponin. Initially she was admitted to the outside hospital with weakness leg pain and weakness and fall, noted to have abnormal electrocardiogram, and subsequently cardiac troponin was done showed significant elevation. She was transferred here for further evaluation and treatment. She has no history of chest pain, but she had history of nausea, which improved after she arrived here. She has been started on heparin, and aspirin use no known history of coronary artery disease according to her, she has [id number] shortness of breath with dyspnea exertion but no orthopnea no PNDs. No leg swelling. 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 The patient stop taking seizure medicine after about 10 years and has not had seizures. This occurred during her child. Surgical History Surgical History H/O cervical polypectomy History of appendectomy Hx of total knee arthroplasty Family History Family History Mother Hypertension Myocardial infarction Brother Hypertension Diabetes mellitus Father Acute myocardial infarction Social History Social History (Updated 11/15/20 @ 22:04 by Yelena Chavez NP) Social History: The patient is a lifelong nonsmoker. 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 The patient does not use alcohol, marijuana, or illicit drugs. She is single and has never been . The patient has no children. She desires to be a full code. She does not have a durable power admitted attorneys for healthcare. She lives home alone. Smoking status: Never smoker Alcohol intake: former Substance use: never Gender identity (if verbalized by the patient): Female Spiritual care concerns: No Meds Home Medications and Allergies Home Medications Medication Instructions Recorded
[2020-11-16] MEDS: CHOLECALCIFEROL 1,000 UNITS TABLET 2000 UNITS PO (09:57)
[2020-11-16] MEDS: ASPIRIN 325 MG ENTERIC TABLET PO (09:57)
[2020-11-16] MEDS: predniSONE 2.5 MG TABLET PO (09:57)
[2020-11-16] MEDS: FOLIC ACID 1 MG TABLET PO (09:57)
--- NOTE | 2020-11-16 13:21 | PM.IMPN ---
Progress Note: A&P Assessment and Plan (1) NSTEMI (non-ST elevated myocardial infarction): Code(s): I21.4 - Non-ST elevation (NSTEMI) myocardial infarction Status: Acute Assessment and Plan: She was having chest pressure. Troponins found to be elevated. EKG reviewed which showed ST elevation on initial EKG that was improved on subsequent. She was transferred from [facility] for cardiology evaluation. -cardiology is following input is appreciated -continue heparin drip -planning for cardiac catheterization today (2) Elevated troponin I level: Code(s): R77.8 - Other specified abnormalities of plasma proteins Status: Acute Assessment and Plan: Troponin was 1.198 upon presentation and peaked at 2.085 on 11/15 with subsequent decline. Troponin is 0.861 today. -plan as above (3) Frequent falls: Code(s): R29.6 - Repeated falls Status: Acute Assessment and Plan: She presented to ED due to fall on her bilateral knees. She did not hit her head or lose consciousness. Knee x-ray acute findings, hip/pelvis x-ray with no acute findings. She lives alone and has had several recent falls. She feels weak. -Check B12, folate, TSH. NANCY pending. -PT/OT eval ordered and is appreciated. -Fall precautions -Care coordination following (4) Rheumatoid arthritis: Code(s): M06.9 - Rheumatoid arthritis, unspecified Status: Acute Assessment and Plan: -Continue with methotrexate and low dose prednisone (5) Hypothyroidism: Code(s): E03.9 - Hypothyroidism, unspecified Status: Acute Assessment and Plan: TSH is wnl. -Continue levothyroxine. (6) Emphysema lung: Code(s): J43.9 - Emphysema, unspecified Status: Chronic Assessment and Plan: She is maintaining adequate O2 saturations on room air. CTA showed emphysema or inflation. -Albuterol available prn -She will benefit from pulmonology referral for PFTs Subjective Date/time seen: 11/16/20 13:21 Interval history: Date of service: 11/16/2020 Laquita Mcfarlane is a 75-year-old female with history of emphysema, hypothyroidism, iron deficiency anemia, seizure disorder, chronic low back pain who is seen in follow-up for NSTEMI. She is feeling weak at this time. She had an episode of emesis this morning and has been feeling nauseous. She endorses chest heaviness and RODRIGUEZ. She has pain in her right shoulder. She felt a bit lightheaded this morning but this has improved. She denies palpitations. Denies pain or jaw pain. Denies anxiety. She denies cough, wheezing, orthopnea, or PND. Review of Systems Review of Systems: All systems reviewed & are unremarkable except as noted in HPI and below Exam Narrative: Exam Narrative: Ms. Mcfarlane is a frail-appearing 75-year-old female who is sitting in a chair by the bedside. She appears comfortable and is in NARD. Neuro: awake, alert and oriented x4, speech clear, no focal neuro deficits noted. Unstable gait needing 2 person assistance to return to bed. HEENMT: normocephalic, atraumatic, EOMI, sclerae anicteric, moist oral mucosa, tongue midline, nares patent Neck: supple, no lymphadenopathy Respiratory: clear to auscultation bilaterally, nonlabored breathing Cardio: regular rate, regular rhythm with S1-S2 Abdomen: nondistended, normoactive bowel sounds, soft, nontender to palpation, no rigidity or guarding Extremities: no edema, erythema, cyanosis, clubbing, or tenderness to palpation, DP pulses 2+ bilaterally Skin: no rashes or lesions, warm and dry Psych: appropriate mood and affect, judgment and insight intact Objective Data Vital Signs Vital Signs: Vital Signs - 24 hr 11/15/20 20:37 11/15/20 21:15 11/15/20 22:00 Temperature 97.5 F L Pulse Rate 71 76 73 Respiratory Rate 18 Blood Pressure 144/69 H Pulse Oximetry 97 11/15/20 23:46 11/16/20 00:00 11/16/20 02:00 Temperature 98.0
--- NOTE | 2020-11-16 13:30 | PCNSR ---
On 11/16/20, the student, Angelina Blanco, provided care and completed [facility] documentation on this patient. I have reviewed the student's documentation and agree with the findings.
--- NOTE | 2020-11-16 14:43 | WPDMODSED ---
Moderate Sedation Note-Pt Data Patient Data Allergies Allergy/AdvReac Type Severity Reaction Status Date / Time clindamycin Allergy Severe RASH Verified 11/14/20 08:30 amoxicillin [Augmentin] Allergy Intermediate Unknown Verified 11/14/20 08:30 clavulanic acid [Augmentin] Allergy Intermediate Unknown Verified 11/14/20 08:30 Sulfa (Sulfonamide Allergy Unknown Unknown Verified 11/14/20 08:30 Antibiotics) Sulfonamides Allergy Intermediate Unknown Uncoded 11/14/20 08:30 Home Medications Medication Instructions Recorded Confirmed Type ADVANCED Calcium 1 tablet PO DAILY 11/15/20 11/15/20 History acetaminophen 650 mg PO Q6H PRN 11/15/20 11/15/20 History cholecalciferol (vitamin D3) 50 mcg PO DAILY 11/15/20 11/15/20 History folic acid 1 mg PO DAILY 11/15/20 11/15/20 History levothyroxine 88 mcg PO DAILY 11/15/20 11/15/20 History meloxicam 15 mg PO DAILY 11/15/20 11/15/20 History methotrexate sodium 12.5 mg PO WEEKLY 11/15/20 11/15/20 History prednisone 2.5 mg PO DAILY 11/15/20 11/15/20 History Current Medications: Active Medications Acetaminophen (Acetaminophen 325 Mg Tablet) 650 mg PO Q6H PRN PRN Reason: Pain Albuterol (Albuterol Sulfate (*Sp) Aerosol 1 Puff) 2 puff INHALATION Q6HRT [facility] Last Admin: 11/16/20 14:08 Dose: Not Given Documented by: Aspirin (Aspirin 325 Mg Enteric Tablet) 325 mg PO QAM [facility] Last Admin: 11/16/20 09:57 Dose: 325 mg Documented by: Folic Acid (Folic Acid 1 Mg Tablet) 1 mg PO DAILY [facility] Last Admin: 11/16/20 09:57 Dose: 1 mg Documented by: Heparin Sodium (Porcine) (Heparin Sodium 5,000 Units/Ml Vial) 4,000 units IV PUSH PRN PRN PRN Reason: aPTT less than 55 seconds Last Admin: 11/16/20 05:24 Dose: 4,000 units Documented by: Heparin Sodium (Porcine) (Heparin Sodium 5,000 Units/Ml Vial) 2,000 units IV PUSH PRN PRN PRN Reason: aPTT 55 - 70 seconds Heparin Sodium/Dextrose (Heparin Sodium/D5w 100 Units/Ml) 25,000 units in 250 mls @ 6 mls/hr IV CONT .Q24H [facility]; Protocol Last Titration: 11/16/20 12:19 Dose: 600 units/hr, 6 mls/hr Documented by: Sodium Chloride (Normal Saline Iv) 500 mls @ 100 mls/hr IV CONT .Q5H [facility] Levothyroxine Sodium (Levothyroxine Sodium 88 Mcg Tablet) 88 mcg PO DAILY@0630 [facility] Last Admin: 11/16/20 06:07 Dose: 88 mcg Documented by: Methotrexate (Methotrexate 2.5 Mg Tab (*Chemo)) 12.5 mg PO We [facility] Methotrexate (Methotrexate 2.5 Mg Tab (*Chemo)) 12.5 mg PO WEEKLY [facility] Morphine Sulfate (Morphine Sulfate (*Crx) 2 Mg/Ml Inj) 2 mg IV PUSH Q4H PRN PRN Reason: Pain Rated 7-10 Last Admin: 11/16/20 03:30 Dose: 2 mg Documented by: Non-Formulary Medication ([id number] [Advanced Calcium]) 1 tablet PO DAILY [facility] Stop: 12/16/20 09:01 Ondansetron HCl (Ondansetron Inj 4 Mg/2 Ml Vial) 4 mg IV PUSH Q6H PRN PRN Reason: Nausea And Vomiting Last Admin: 11/16/20 10:23 Dose: 4 mg Documented by: Prednisone (Prednisone 2.5 Mg Tablet) 2.5 mg PO DAILY@0800 [facility] Last Admin: 11/16/20 09:57 Dose: 2.5 mg Documented by: Vitamin D (Cholecalciferol 1,000 Units Tablet) 2,000 units PO DAILY [facility] Last Admin: 11/16/20 09:57 Dose: 2,000 units Documented by: Sedation/Anesthesia: No previous sedation/anesthesia problems (including family history). 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 The patient stop taking seizure medicine after about 10 years and has not had seizures. This occurred during her child. Surgical History Surgical History H/O cervical polypectomy History of appendectomy Hx of total knee arthroplasty Family History Family History Mother Hypertension Myocardial infarction Brother Hypertension Diabete
--- NOTE | 2020-11-16 15:26 | PCRCNOTE ---
ATTEMPTED HOME O2 EVAL, PT UNABLE TO AMBULATE AT THIS TIME. PT NAUSEATED AND STATES SHE FELL YESTERDAY. ROOM AIR RESTING SAO2 96%. RN NOTIFIED.
--- NOTE | 2020-11-16 16:12 | P.PCNCC_ITS ---
Cardiac Cath Procedure Note Date of procedure:: 11/16/20 Performing physician:: Lamonte Schroeder MD Procedure: 1. Left heart catheterization, selective coronary angiogram. 2. Left ventricular angiogram. 3. Conscious sedation. Aquatic Director: Dr. Lamonte Schroeder Complications: None. Sedation: Conscious sedation, local anesthesia, using 1 mg of Versed , and using 1% lidocaine for local anesthesia. starting time is : ending time is 4:15 p.m. History: 75 years old lady with history of hypertension dyslipidemia was transferred to this hospital because of fall and elevated troponin with abnormal EKG. After further stabilization was brought to the laborer beam house for elective cardiac catheterization Technique: After informed consent was obtained from patient, was brought to the laborer beam house, put in the laborer beam house table, prepped and draped in usual sterile fashion. Five Lebanese sheath was inserted into the right common femoral artery, through the sheath 5 [place] JL4 catheter inserted, advanced to the left coronary artery, left coronary artery angiogram was obtained. The catheter was exchanged over guidewire into a 5 [place] JR4 catheter, advanced to the right coronary artery, right coronary artery angiogram was obtained. The catheter then was exchanged over guidewire into this 5 [place] pigtail catheter, advanced to left ventricle, left ventricular angiogram was obtained. The catheter then was pulled, the sheath was pulled applying manual pressure for arterial hemostasis. Patient tolerated the procedure no complication, taken from the laborer beam house to his room in stable condition stable vital signs. Hemodynamics: aortic pressure 110/60 . LV pressure 108/04 with LVEDP of 14 mmHg Angiographic findings: Left main: Medium size artery no significant disease or stenosis. Lad medium size artery showed distal minimal irregularity but no obstructive lesions noted Left circumflex artery, medium size artery, no significant disease or stenosis. 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 Risk factor modification
[2020-11-16 17:19] LABS: Activated Clotting Time 114 sec (74-137)
[2020-11-16] MEDS: SODIUM CHLORIDE 0.9% IV 500 ML 100 ML IV CONT (20:24)
[2020-11-16] MEDS: ALBUTEROL SULFATE (*SP) AEROSOL 1 PUFF 2 PUFF INHALATION (20:41)
[2020-11-17] VITALS (12 sets, daily range): BP systolic 102–133; BP diastolic 53–62; PULSE 57–87; RESP 14–18; TEMP 36.3–37.2; O2SAT 98–100
[2020-11-17 05:19] LABS: Hematocrit 35.3 % (37.0-47.0); Hemoglobin 11.4 g/dL (12.0-15.0); Mean Corpuscular HGB Conc 32.3 g/dl (32-36); Mean Corpuscular Hemoglobin 32.2 pg (26-34); Mean Corpuscular Volume 99.7 fl (80-100); Mean Platelet Volume 10.1 fl (7.4-10.4); Platelet Count Result 185 k/mm3 (150-375); Red Blood Count 3.54 M/mm3 (4.2-5.4); Red Cell Distribution Width 12.8 % (11.5-14.5); White Blood Count 4.9 K/mm3 (4.5-10.0)
[2020-11-17 05:32] LABS: Anion Gap 0 mmol/L (8-16); Blood Urea Nitrogen 20 mg/dL (7-17); Calcium 8.7 mg/dL (8.4-10.2); Carbon Dioxide 29 mmol/L (22-30); Chloride 108 mmol/L (98-107); Estimated CRCL calculation 50 ml/min; Estimated Glomerular Filt Rate > 60; Glucose 82 mg/dL (65-105); Potassium 3.6 mmol/L (3.4-5.0); Sodium 137 mmol/L (137-145)
[2020-11-17] MEDS: LEVOTHYROXINE SODIUM 88 MCG TABLET PO (05:59)
[2020-11-17] MEDS: ASPIRIN 325 MG ENTERIC TABLET PO (09:05)
[2020-11-17] MEDS: predniSONE 2.5 MG TABLET PO (09:05)
[2020-11-17] MEDS: CHOLECALCIFEROL 1,000 UNITS TABLET 2000 UNITS PO (09:05)
[2020-11-17] MEDS: FOLIC ACID 1 MG TABLET PO (09:05)
[2020-11-17] MEDS: ALBUTEROL SULFATE (*SP) AEROSOL 1 PUFF 2 PUFF INHALATION ×3 (09:13→21:27)
--- NOTE | 2020-11-17 12:51 | PC.NURSE ---
This patient, Laquita Mcfarlane, was received from IMU on 11/17/20 at 1245. Patient/family oriented to unit policies and routines
--- NOTE | 2020-11-17 12:51 | PC.NURSE ---
This patient, Laquita Mcfarlane, was transferred to [[id number] ] on 11/17/20 at 1245. Personal belongings sent with patient. Report given to [Juanita ]. Appropriate documentation sent with patient.
--- NOTE | 2020-11-17 14:22 | PM.PNCARD ---
Progress Note: A&P Assessment and Plan (1) NSTEMI (non-ST elevated myocardial infarction): Code(s): I21.4 - Non-ST elevation (NSTEMI) myocardial infarction Status: Acute Assessment and Plan: cardiac catheterization was done yesterday showed no significant coronary disease but showed evidence of possible apical ballooning syndrome, she needs to continue with low-dose lisinopril, she is stable from cardiac standpoint to be discharged home, or go to rehab (2) Swelling of left lower extremity: Code(s): M79.89 - Other specified soft tissue disorders Status: Acute (3) Atherosclerotic PVD with ulceration: Code(s): I70.209 - Unspecified atherosclerosis of [place] arteries of extremities, unspecified extremity; L98.499 - Non-pressure chronic ulcer of skin of other sites with unspecified severity Status: Acute (4) Venous insufficiency of left lower extremity: Code(s): I87.2 - Venous insufficiency (chronic) (peripheral) Status: Acute Assessment and Plan: she stable from cardiac standpoint to be discharged home or transfer to rehab facility Subjective Date/time seen: 11/17/20 14:22 She feels better today, no chest pain no shortness of breath, no significant arrhythmia Exam Narrative: Exam Narrative: Awake alert oriented x3 not in acute distress Neck is supple no obvious JVD, no carotid bruit Chest: Good air entry bilaterally, lungs are clear to auscultation and percussion bilaterally Cardiovascular: Regular rate and rhythm, 2/6 systolic murmur noted left sternal border Abdomen: Soft nontender bowel sounds positive Extremities: No edema has good pulses distally bilaterally Objective Data Vital Signs Vital Signs: Vital Signs - 24 hr 11/16/20 16:00 11/16/20 16:20 11/16/20 16:30 Temperature Pulse Rate 67 68 68 Pulse Rate [Right Pedal (Dorsalis Pedis) Palpation] 68 68 Respiratory Rate 16 16 Blood Pressure 142/84 H 143/74 H Pulse Oximetry 100 100 11/16/20 16:45 11/16/20 17:00 11/16/20 17:15 Temperature 36.6 C Pulse Rate 68 66 59 L Pulse Rate [Right Pedal (Dorsalis Pedis) Palpation] 68 68 68 Respiratory Rate 16 16 16 Blood Pressure 156/70 H 139/72 163/88 H Pulse Oximetry 100 100 100 11/16/20 17:30 11/16/20 17:45 11/16/20 18:00 Temperature Pulse Rate 63 67 72 Pulse Rate [Right Pedal (Dorsalis Pedis) Palpation] 68 68 62 Respiratory Rate 16 16 19 Blood Pressure 152/75 H 156/77 H 142/79 H Pulse Oximetry 100 100 100 11/16/20 18:15 11/16/20 18:45 11/16/20 19:15 Temperature 36.2 C L Pulse Rate 66 59 L 77 Pulse Rate [Right Pedal (Dorsalis Pedis) Palpation] 66 66 Respiratory Rate 18 16 16 Blood Pressure 144/80 H 151/76 H 118/55 L Pulse Oximetry 99 99 98 11/16/20 20:00 11/16/20 20:15 11/16/20 21:33 Temperature 36.1 C L 36.1 C L Pulse Rate 80 56 L 69 Pulse Rate [Right Pedal (Dorsalis Pedis) Palpation] Respiratory Rate 16 16 Blood Pressure 108/57 L 99/49 L Pulse Oximetry 99 99 11/16/20 22:00 11/16/20 22:15 11/16/20 22:48 Temperature 36.1 C L Pulse Rate 57 L 56 L Pulse Rate [Right Pedal (Dorsalis Pedis) Palpation] Respiratory Rate 16 Blood Pressure 90/44 L 93/61 L Pulse Oximetry 99 11/17/20 00:00 11/17/20 02:00 11/17/20 04:00 Temperature 36.3 C L 36.3 C L Pulse Rate 64 62 59 L Pulse Rate [Right Pedal (Dorsalis Pedis) Palpation] Respiratory Rate 16 16 Blood Pressure 112/53 L 118/62 Pulse Oximetry 98 98 11/17/20 06:00 11/17/20 08:00 11/17/20 10:00 Temperature 36.9 C Pulse Rate 68 59 L 69 Pulse Rate [Right Pedal (Dorsalis Pedis) Palpation] Respiratory Rate 16 Blood Pressure 119/62 Pulse Oximetry 100 11/17/20 11:44 11/17/20 12:00 11/17/20 12:46 Temperature 37.2 C 36.3 C L Pulse Rate 58 L 87 64 Pulse Rate [Right Pedal (Dorsalis Pedis) Palpation] Respiratory Rate 14 18 Blood Pressure 133/58 L 116/57 L Pulse Oximetry 100 100 Intake/Output Intake/Output: Intake & Outpu
--- NOTE | 2020-11-17 15:37 | PM.IMPN ---
Progress Note: A&P Assessment and Plan (1) NSTEMI (non-ST elevated myocardial infarction): Code(s): I21.4 - Non-ST elevation (NSTEMI) myocardial infarction Status: Acute Assessment and Plan: s/p cardiac cath with mild cad. apical ballooning syndrome. off heparin gtt now. ekg with ST elevation on initial EKG that was improved on subsequent. cardiology on board. (2) Elevated troponin I level: Code(s): R77.8 - Other specified abnormalities of plasma proteins Status: Acute Assessment and Plan: Troponin was 1.198 upon presentation and peaked at 2.085 on 11/15 with subsequent decline. further decline. s/p cath: with mild CAD (3) Frequent falls: Code(s): R29.6 - Repeated falls Status: Acute Assessment and Plan: She presented to ED due to fall on her bilateral knees. She did not hit her head or lose consciousness. Knee x-ray acute findings, hip/pelvis x-ray with no acute findings. She lives alone and has had several recent falls. She feels weak. -Check B12, folate, TSH. NANCY pending. -PT/OT eval ordered and is appreciated. -Fall precautions -Care coordination following likely needs placement (4) Rheumatoid arthritis: Code(s): M06.9 - Rheumatoid arthritis, unspecified Status: Acute Assessment and Plan: -Continue with methotrexate and low dose prednisone (5) Hypothyroidism: Code(s): E03.9 - Hypothyroidism, unspecified Status: Acute Assessment and Plan: TSH is wnl. -Continue levothyroxine. (6) Emphysema lung: Code(s): J43.9 - Emphysema, unspecified Status: Chronic Assessment and Plan: She is maintaining adequate O2 saturations on room air. CTA showed emphysema or inflation. -Albuterol available prn -She will benefit from pulmonology referral for PFTs Subjective Date/time seen: 11/17/20 15:37 Interval history: feels okay. she denies any new complaints today. no abdomianl pain, nauea, vomiting. she had a cath done yesterday. Review of Systems Constitutional: Constitutional: Denies body ache(s) and Denies fatigue Eyes: Eyes: Denies blurry vision and Denies photophobia ENT: Denies Normal hearing present and Denies tinnitus Cardiovascular: Cardiovascular: Denies chest pain and Denies palpitations Respiratory: Respiratory: Denies dyspnea and Denies dyspnea on exertion Gastrointestinal: Gastrointestinal: Denies abdominal pain and Denies melena Genitourinary: Genitourinary: Denies hematuria and Denies flank pain Musculoskeletal: Musculoskeletal: Denies back pain and Denies arthralgias Integumentary/Breasts: Skin/Breast: Denies dry skin and Denies pruritus Neurologic: Denies headache(s) and Denies numbness Psychiatric: Psychiatric: Denies confusion and Denies depression Exam Narrative: Exam Narrative: Ms. Mcfarlane is a frail-appearing 75-year-old female who is sitting in a chair by the bedside. She appears comfortable and is in NARD. Neuro: awake, alert and oriented x4, speech clear, no focal neuro deficits noted. Unstable gait needing 2 person assistance to return to bed. HEENMT: normocephalic, atraumatic, EOMI, sclerae anicteric, moist oral mucosa, tongue midline, nares patent Neck: supple, no lymphadenopathy Respiratory: clear to auscultation bilaterally, nonlabored breathing Cardio: regular rate, regular rhythm with S1-S2 Abdomen: nondistended, normoactive bowel sounds, soft, nontender to palpation, no rigidity or guarding Extremities: no edema, erythema, cyanosis, clubbing, or tenderness to palpation, DP pulses 2+ bilaterally Skin: no rashes or lesions, warm and dry Psych: appropriate mood and affect, judgment and insight intact Objective Data Vital Signs Vital Signs: Vital Signs - 24 hr 11/16/20 16:00 11/16/20 16:20 11/16/20 16:30 Temperature Pulse Rate 67 68 68 Pulse Rate [Right Pedal (Dorsalis Pedis) Palpation] 68 68 Respiratory Rate 16 16 [place]oo
[2020-11-18] VITALS: PULSE 65
[2020-11-18 00:15] LABS: SARS-CoV-2 RNA PCR Negative
[2020-11-18] MEDS: ACETAMINOPHEN 325 MG TABLET 650 MG PO (01:44)
--- NOTE | 2020-11-18 03:16 | PC.NURSE ---
Daylight Savings Time For Daylight Savings Time Ending in the Fall - Clocks are moved back. For Daylight Savings Time Beginning in the Spring - Clocks are moved ahead. For [facility], the time of change occurs at 0200 hrs. Time is taken from the casting finisher. This entry on the patient's chart recognizes the change in time reflected during documentation. Example: 2 entries for vital signs may be charted for 0200 hrs.
[2020-11-18 04:22] VITALS: PULSE 57
[2020-11-18 05:41] VITALS: BP 126/52; PULSE 63; RESP 14; TEMP 37; O2SAT 100
[2020-11-18] MEDS: LEVOTHYROXINE SODIUM 88 MCG TABLET PO (06:37)
[2020-11-18 08:00] VITALS: PULSE 59
[2020-11-18] MEDS: FOLIC ACID 1 MG TABLET PO (08:18)
[2020-11-18] MEDS: ASPIRIN 325 MG ENTERIC TABLET PO (08:18)
[2020-11-18] MEDS: CHOLECALCIFEROL 1,000 UNITS TABLET 2000 UNITS PO (08:18)
[2020-11-18] MEDS: lisinopriL 5 MG TABLET PO (08:18)
[2020-11-18] MEDS: predniSONE 2.5 MG TABLET PO (08:18)
[2020-11-18] MEDS: ALBUTEROL SULFATE (*SP) AEROSOL 1 PUFF 2 PUFF INHALATION (08:21)
[2020-11-18] MEDS: BISACODYL 10 MG SUPPOSITORY RECTAL (11:21)
[2020-11-18 12:00] VITALS: PULSE 73
--- NOTE | 2020-11-18 14:18 | PM.DS ---
DS: Admitting Diagnosis Admitting Diagnosis Admitting Diagnosis: (1) NSTEMI (non-ST elevated myocardial infarction): (2) Elevated troponin I level: (3) Frequent falls: (4) Rheumatoid arthritis: (5) Hypothyroidism: (6) Emphysema lung: DS: Discharge Diagnosis Discharge Diagnosis (1) Elevated troponin I level: Code(s): R77.8 - Other specified abnormalities of plasma proteins Status: Acute Assessment and Plan: is status post left heart catheterization with no significant finding (2) Emphysema lung: Code(s): J43.9 - Emphysema, unspecified Status: Chronic Assessment and Plan: stable breathing treatments as needed (3) Frequent falls: Code(s): R29.6 - Repeated falls Status: Acute Assessment and Plan: physical therapy /occupational therapy (4) Venous insufficiency of left lower extremity: Code(s): I87.2 - Venous insufficiency (chronic) (peripheral) Status: Acute Assessment and Plan: compression stocking (5) Osteopenia: Code(s): M85.80 - Other specified disorders of bone density and structure, unspecified site Status: Acute Assessment and Plan: will benefit from Biphosphonate (6) Iron deficiency anemia: Code(s): D50.9 - Iron deficiency anemia, unspecified Status: Acute Assessment and Plan: likely secondary to poor oral intake continue to monitor (7) Rheumatoid arthritis: Code(s): M06.9 - Rheumatoid arthritis, unspecified Status: Acute Assessment and Plan: on methotrexate (8) Chronic low back pain: Code(s): M54.5 - Low back pain; G89.29 - Other chronic pain Status: Acute Assessment and Plan: Tylenol as needed DS: Summary Hospital Course Reason for hospitalization: ELEVATED TROPONIN Hospital Course: this is a 75-year-old female with past medical history significant for recurrent falls, peripheral venous insufficiency, RA, on methotrexate. patient was brought from [facility]. patient went to emergency room at [facility] after she had a fall while exiting her car and preliminary workup showed elevated troponin patient was transferred to our hospital for further assessment and evaluation on management and treatment. A consult with Cardiology was obtained. patient underwent a left heart catheterization which showed no significant coronary obstructive disease of the arteries. Patient continued to participate with PT OT in therapy session and she was discharged to group home with to rehabilitate Cardiac Cath Procedure Note Date of procedure:: 11/16/20 Performing physician:: Lamnote Schroeder MD Procedure: 1. Left heart catheterization, selective coronary angiogram. 2. Left ventricular angiogram. 3. Conscious sedation. Local Truck Driver: Dr. Lamonte Schroeder Complications: None. Sedation: Conscious sedation, local anesthesia, using 1 mg of Versed , and using 1% lidocaine for local anesthesia. starting time is : ending time is 4:15 p.m. History: 75 years old lady with history of hypertension dyslipidemia was transferred to this hospital because of fall and elevated troponin with abnormal EKG. After further stabilization was brought to the wood and wood products labourer for elective cardiac catheterization Technique: After informed consent was obtained from patient, was brought to the wood and wood products labourer, put in the wood and wood products labourer table, prepped and draped in usual sterile fashion. Five Turkmen sheath was inserted into the right common femoral artery, through the sheath 5 Turkmen JL4 catheter inserted, advanced to the left coronary artery, left coronary artery angiogram was obtained. The catheter was exchanged over guidewire into a 5 Turkmen JR4 catheter, advanced to the right coronary artery, right coronary artery angiogram was obtained. The catheter then was exchanged over guidewire into this 5 Turkmen pigtail catheter, a
== END 2020-11-18 15:00 | DRG 282 ==
LOC: ANHIMU 11-17 08:09 → ANH3MED 11-18 14:18 → ANHIMU 11-21 12:02
PROVIDERS: Family Medicine; Nurse Practitioner; Physician Assistant; Specialist; Admitting Provider Internal Medicine; PCP Nurse Practitioner Family; Referring Provider Internal Medicine; Visit Provider Internal Medicine
PROC: 4A023N7 Measurement of Cardiac Sampling and Pressure, Left Heart, Percutaneous Approach (ICD-10-PCS; CPT 93452; principal; 2020-11-16 17:00)
DX: I21.4 Non-ST elevation (NSTEMI) myocardial infarction (principal); I25.10 Atherosclerotic heart disease of native coronary artery without angina pectoris; Z20.822 Contact with and (suspected) exposure to COVID-19; M79.89 Other specified soft tissue disorders; R29.6 Repeated falls; I70.209 Unspecified atherosclerosis of native arteries of extremities, unspecified extremity; L98.499 Non-pressure chronic ulcer of skin of other sites with unspecified severity; I87.2 Venous insufficiency (chronic) (peripheral); J43.9 Emphysema, unspecified; E03.9 Hypothyroidism, unspecified; D50.9 Iron deficiency anemia, unspecified; M85.80 Other specified disorders of bone density and structure, unspecified site; M06.9 Rheumatoid arthritis, unspecified; M54.5 Low back pain; G89.29 Other chronic pain; M13.88 Other specified arthritis, other site; Z77.22 Contact with and (suspected) exposure to environmental tobacco smoke (acute) (chronic); Z28.21 Immunization not carried out because of patient refusal; Z79.899 Other long term (current) drug therapy
CPT/HCPCS: 36415; 80048; 80053; 80061; 81003; 83735; 84443; 84484; 85025; 85027; 85610; 85730; 86038; 86039; 93005; 93306; 93458; 94640; 96365; 96366; 96375; 96376; 97110; 97116; 97161; 97165; 97535; A9270; C1894; C9803; G0378; G0379; J1644; J2250; J2270; J2405; J3010; J7040; U0003; U0005

== ENCOUNTER 2021-01-23 16:04 | Outpatient (NON) | payer MEDICARE, SELFPAY ==
[2021-01-23 16:15] LABS: Add Urine Microscopic? NO; Appearance Urine Clear (Clear); Bilirubin Urine Negative (Negative); Blood Urine Negative (Negative); Color Urine Yellow (Yellow); Glucose Urine UA Negative (Negative); Ketones Urine Negative (Negative); Leukocyte Esterase Ur Negative (Negative); Nitrate Urine Negative (Negative); Protein Urine Negative (Negative); Specific Grav Ur 1.015 (1.010-1.020); Urobilinogen Urine 0.2 mg/dL (0.2-1.0); pH Urine 5.5 (5.0-8.0)
[2021-01-23 17:40] LABS: RBC Urine 0-2 /hpf (0-2); WBC Urine 0-3 /hpf (0-3)
== END 2021-01-23 16:05 | disposition home or self-care (01) ==
LOC: CHSLAB 16:06
PROVIDERS: Visit Provider Family Medicine
DX: R35.0 Frequency of micturition (principal); N39.0 Urinary tract infection, site not specified
CPT/HCPCS: 81003; 87086; 87088

== ENCOUNTER 2021-02-02 11:11 | Outpatient (CLI) | payer MEDICARE, SELFPAY | END 2021-02-02 11:12 | disposition home or self-care (01) | LOC: CHSCOVIDVC 11:12 | PROVIDERS: PCP Family Medicine | DX: Z23 Encounter for immunization (principal) | CPT/HCPCS: 0012A; 91301 ==

== ENCOUNTER 2021-05-21 06:50 | Outpatient (NON) | payer MEDICARE, SELFPAY ==
[2021-05-21 07:22] LABS: Hemoglobin 12.4 g/dL (11.7-13.8); Mean Corpuscular HGB Conc 31.8 g/dL (32.0-36.0); Mean Corpuscular Hemoglobin 32.2 pg (27.0-31.0); Mean Corpuscular Volume 101.3 fL (78.0-102.0); Mean Platelet Volume 10.3 fl (9.2-11.8); Platelet Count Result 260 K/mm3 (150-420); Red Blood Count 3.85 M/mm3 (4.20-5.40); Red Cell Distribution Width 13.6 % (11.6-14.4); White Blood Count 6.9 K/mm3 (4.8-10.8)
[2021-05-21 07:46] LABS: Alanine Aminotransferase 32 U/L (14-59); Alkaline Phosphatase 81 U/L (46-116); Anion Gap 13 mmol/L (8-16); Aspartate Amino Transferase 22 U/L (15-37); Bilirubin,Total 0.3 mg/dL (0.00-1.00); Blood Urea Nitrogen 33 mg/dL (7-18); Calcium 9.4 mg/dL (8.5-10.1); Carbon Dioxide 24 mmol/L (21-32); Chloride 105 mmol/L (98-108); Estimated Glomerular Filt Rate > 60; Glucose 85 mg/dL (70-99); Osmolality Calculated 300 mOsm/kg (285-295); Potassium 4.5 mmol/L (3.5-5.1); Sodium 142 mmol/L (136-145); Thyroid Stimulating Hormone 0.28 uIU/mL (0.36-3.74); Total Protein 6.7 g/dL (6.4-8.2)
[2021-05-21 07:55] LABS: Band Neutrophils Percent 0 % (0-6); Eosinophils Absolute Manual 0.27 K/mm3 (0.02-0.5); Eosinophils Percent Manual 4 % (1-6); Lymphocytes Percent Manual 32 % (18-44); Monocytes Absolute Manual 0.75 K/mm3 (0.1-0.90); Monocytes Percent Manual 11 % (3-9); Neutrophils Absolute Manual 3.65 K/mm3 (1.7-7.2); Neutrophils Percent Manual 53 % (46-73); Platelet Estimate Adequate (Adequate); Total Cells Counted 100
[2021-05-24 13:25] LABS: Vitamin D 25 Hydroxy 49 ng/mL (30-100)
== END 2021-05-21 06:51 | disposition home or self-care (01) ==
LOC: CHSLAB 06:53
PROVIDERS: Visit Provider Family Medicine
DX: D64.9 Anemia, unspecified (principal); E55.9 Vitamin D deficiency, unspecified; E03.9 Hypothyroidism, unspecified
CPT/HCPCS: 36415; 80053; 82306; 84443; 85025

== ENCOUNTER 2021-07-14 13:59 | Outpatient (CLI) | payer OTHER, SELFPAY ==
--- NOTE | ~2021-07-14 | XR_ITS ---
XR_CERV2-3V_CR DATE: 07/14/2021 14:34 INDICATION: Neck and shoulder pain after fall 5 days ago TECHNIQUE: AP, open-mouth, lateral, swimmer views COMPARISON: 05/25/2020 cervical spine FINDINGS: There is levoscoliosis of the cervical and upper thoracic spine. There is an approximately 8 mm anterolisthesis at C4-5, compared to approximately 6 mm on 05/25/2020. No other significant change is noted. There is fusion C3-4 vertebral bodies. There is severe degenerative disc disease at C4-5, C5-6 and C6-7. IMPRESSION: 8 mm anterolisthesis at C4-5 Severe degenerative disc disease at C4-5, C5-6 and C6-7 Reviewed, dictated and finalized at Location [facility]. Reviewed, dictated and finalized at location A. ING MACHINE OPERATOR
--- NOTE | ~2021-07-14 | XR_ITS ---
XR shoulder RT min 2V DATE: 07/14/2021 14:35 INDICATION: Shoulder pain TECHNIQUE: 3 views COMPARISON: 05/25/2020 right shoulder FINDINGS: There is rotator cuff atrophy with the humeral head abutting the undersurface of the acromi on process. There is osteophytic spurring of the humeral head consistent with glenohumeral osteoarthr itis. Diffuse osteopenia. No fracture or dislocation, periosteal reaction or bone destruction of the right shoulder or abnormal right shoulder soft tissue calcification is detected. IMPRESSION: Diffuse osteopenia Right glenohumeral osteoarthritis Prominent rotator cuff atrophy Reviewed, dictated and finalized at location A. ICU
== END 2021-07-14 14:00 | disposition home or self-care (01) ==
PROVIDERS: PCP Family Medicine; Visit Provider Family Medicine
DX: M54.2 Cervicalgia (principal)
CPT/HCPCS: 72040; 73030

== ENCOUNTER 2021-08-17 07:44 | Outpatient (CLI) | payer OTHER, SELFPAY ==
--- NOTE | ~2021-08-17 | XR_ITS ---
EXAMINATION: XR wrist RT min 3V INDICATION: Right wrist pain TECHNIQUE: Four views of the right wrist are obtained. COMPARISON: None available FINDINGS: There is no fracture, dislocation, or subluxation. Mild osteoarthritis is noted. There is d orsal tilt of the hand on the radiographs. Soft tissue swelling is seen at the ventral aspect of the wrist overlying the carpals. IMPRESSION: 1. Soft tissue swelling without acute osseous abnormality identified. Reviewed, dictated and finalized at location A. E REPAIRER
--- NOTE | ~2021-08-17 | MR_ITS ---
EXAMINATION: MR cervical spine wo con EXAM DATE: 08/17/2021 09:01 INDICATION: Spondylosis. TECHNIQUE: Multi-sequential, multiplanar MR images of the cervical spine were obtained without contra st. Axial T2, axial T2 MERGE sequence. Sagittal T1, T2, T2 fat saturation images also obtained. Com parison is made to prior examination from 10/24/2017. FINDINGS: C3 and 4 vertebral bodies are fused. There is 6 mm anterolisthesis C4 on C5, severe disc di sease at this level and the 2 levels below. The cord is being flattened at C4-5 level, moderate centr al canal stenosis at 5 mm in mid sagittal AP dimension. Slightly increased cord T2 signal intensity, could be mild edema from cord compression,, uncertain whether or not steroids would be beneficial. My elomalacia could also be causing this. Cervicomedullary junction is normal in appearance. Paraspinal soft tissue is unremarkable. Level by level evaluation: C2-C3: Disc does not extend beyond the endplate margin. Uncovertebral joint arthropathy: None. Facet joint arthropathy: Mild to moderate bilateral. Neural foraminal stenosis: No stenosis. Central canal stenosis: No stenosis. C3-C4: This level is fused. Uncovertebral joint arthropathy: None. Facet joint arthropathy: Moderate bilateral. Neural foraminal stenosis: Poorly visualized. Central canal stenosis: No stenosis. C4-C5: The disc is bulging Uncovertebral joint arthropathy: Severe bilateral. Facet joint arthropathy: Moderate to severe left, fused right. Neural foraminal stenosis: Severe left, moderate to severe right. Central canal stenosis: Moderate . Central canal measures 5 mm in mid sagittal AP diameter . C5-C6: The disc is bulging. Uncovertebral joint arthropathy: Severe right, moderate left. Facet joint arthropathy: Moderate bilateral. Neural foraminal stenosis: Moderate right, mild to moderate left. Central canal stenosis: Mild. C6-C7: The disc is bulging. Uncovertebral joint arthropathy: Moderate to severe bilateral. Facet joint arthropathy: Mild to moderate bilateral. Neural foraminal stenosis: Mild bilateral. Central canal stenosis: Mild. C7-T1: There is a minimal diffuse disc bulge. Uncovertebral joint arthropathy: Mild to moderate bilateral. Facet joint arthropathy: Mild to moderate bilateral. Neural foraminal stenosis: No stenosis. Central canal stenosis: No stenosis. There has been progression in the anterolisthesis at C4-5 and central canal stenosis, and the other s pondylitic changes compared to 2018. IMPRESSION: 1. Significant anterolisthesis C4 on C5 with moderate central canal stenosis, cord compression and m ildly increased T2 signal, could be mild edema or myelomalacia. Consider neurosurgical evaluation, st eroids if indicated clinically. 2. Advanced cervical spondylosis. Reviewed, dictated and finalized at location A. LIFE CONTROL OPERATOR IMPRESSION: 1. Significant anterolisthesis C4 on C5 with moderate central canal stenosis, cord compression and mildly increased T2 signal, could be mild edema or myeloma lacia. Consider neurosurgical evaluation, steroids if indicated clinically. 2. Advanced cervical spondylosis.
== END 2021-08-17 07:45 | disposition home or self-care (01) ==
PROVIDERS: PCP Family Medicine
DX: M47.812 Spondylosis without myelopathy or radiculopathy, cervical region (principal); M25.531 Pain in right wrist
CPT/HCPCS: 72141; 73110

== ENCOUNTER 2021-09-04 09:53 | Outpatient (CLI) | payer OTHER, SELFPAY ==
--- NOTE | ~2021-09-04 | XR_ITS ---
EXAMINATION: XR chest 2V EXAM DATE: 09/04/2021 11:06 INDICATION: Respiratory crackles of both lungs. TECHNIQUE: Frontal and lateral projections of the chest obtained and reviewed. Comparison is made to prior examination from 11/15/2020. FINDINGS: Right middle lobe granuloma. Mildly prominent basilar reticulation appearance unchanged com par to November. No interstitial lung disease was suspected on CT scan from that month. No confluent c onsolidation. Mild pulmonary edema not excludable but heart is within normal size limits. There is a moderate-sized gastroesophageal hiatal hernia. No pneumothorax or pleural effusion. There are mild maren ny degenerative changes. Thoracolumbar scoliosis. IMPRESSION: 1. Mildly prominent basilar reticulation; mild edema not excludable. Normal heart size. 2. Moderate-sized gastroesophageal hiatal hernia. Reviewed, dictated and finalized at location A. WORKER HELPER IMPRESSION: 1. Mildly prominent basilar reticulation; mild edema not excludable. Normal he art size. 2. Moderate-sized gastroesophageal hiatal hernia.
[2021-09-04 10:07] LABS: Basophils Absolute Auto 0.02 K/mm3 (0.00-0.10); Basophils Percent Auto 0.4 % (0.0-1.0); Eosinophils Absolute Auto 0.24 K/mm3 (0.02-0.50); Eosinophils Percent Auto 4.9 % (1.0-6.0); Hematocrit 35.2 % (35.0-42.0); Hemoglobin 11.3 g/dL (11.7-13.8); Immature Granulocyte Absolute 0.03 K/mm3 (0.00-0.00); Immature Granulocyte Percent A 0.6 % (0.0-0.0); Lymphocytes Absolute Auto 0.83 K/mm3 (1.10-4.50); Lymphocytes Percent Auto 17.1 % (18.0-42.0); Mean Corpuscular HGB Conc 32.1 g/dL (32.0-36.0); Mean Corpuscular Hemoglobin 34.1 pg (27.0-31.0); Mean Corpuscular Volume 106.3 fL (78.0-102.0); Monocytes Absolute Auto 0.67 K/mm3 (0.10-0.90); Monocytes Percent Auto 13.8 % (2.0-11.0); Neutrophils Absolute Auto 3.1 K/mm3 (1.7-7.2); Neutrophils Percent Auto 63.2 % (50.0-70.0); Platelet Count Result 192 K/mm3 (150-420); Red Blood Count 3.31 M/mm3 (4.20-5.40); Red Cell Distribution Width 14.1 % (11.6-14.4); White Blood Count 4.9 K/mm3 (4.8-10.8)
[2021-09-04 10:55] LABS: Alanine Aminotransferase 30 U/L (14-59); Albumin Level 3.6 g/dL (3.4-5.0); Alkaline Phosphatase 88 U/L (46-116); Anion Gap 11 mmol/L (8-16); Aspartate Amino Transferase 22 U/L (15-37); Bilirubin,Total 0.3 mg/dL (0.00-1.00); Blood Urea Nitrogen 31 mg/dL (7-18); Calcium 9.1 mg/dL (8.5-10.1); Carbon Dioxide 26 mmol/L (21-32); Chloride 105 mmol/L (98-108); Estimated Glomerular Filt Rate 57; Glucose 106 mg/dL (70-99); Osmolality Calculated 300 mOsm/kg (285-295); Potassium 3.8 mmol/L (3.5-5.1); Rheumatoid Factor Screen Negative (Negative); Sodium 142 mmol/L (136-145); Total Protein 6.5 g/dL (6.4-8.2)
== END 2021-09-04 09:54 | disposition home or self-care (01) ==
PROVIDERS: PCP Family Medicine; Visit Provider Internal Medicine Rheumatology
DX: R09.89 Other specified symptoms and signs involving the circulatory and respiratory systems (principal)
CPT/HCPCS: 36415; 71046; 80053; 85025; 86430

== ENCOUNTER 2021-09-30 14:55 | Outpatient (CLI) | payer OTHER, SELFPAY ==
--- NOTE | ~2021-09-30 | XR_ITS ---
EXAMINATION: XR knee RT 3V DATE: 09/30/2021 15:33 INDICATION: Right knee pain. TECHNIQUE: 3 views of right knee were obtained. COMPARISON: Right knee radiographs 12/03/2020, 12/04/2014, 04/03/20 FINDINGS: There is a total right knee arthroplasty with patellar resurfacing in near-anatomic alignme nt. There is chronic lucency adjacent to the post of the tibial component. No knee joint effusion. IMPRESSION: 1. Total right knee arthroplasty with chronic lucency adjacent to the post of the tibial component wh ich may be the normal postoperative appearance or a sign of loosening. Comparison with postoperative radiographs is recommended. Reviewed, dictated and finalized at location A. COLORER IMPRESSION: 1. Total right knee arthroplasty with chronic lucency adjacent to the post of t he tibial component which may be the normal postoperative appearance or a sign of loosening. Comparison with postoperative radiographs is recommended.
== END 2021-09-30 14:56 | disposition home or self-care (01) ==
LOC: CHSIMG 14:57
PROVIDERS: PCP Family Medicine; Visit Provider Orthopaedic Surgery
DX: M25.561 Pain in right knee (principal)
CPT/HCPCS: 73562

== ENCOUNTER 2021-11-19 06:56 | Outpatient (NON) | payer OTHER, SELFPAY ==
[2021-11-19 07:21] LABS: Basophils Absolute Auto 0.03 K/mm3 (0.00-0.10); Basophils Percent Auto 0.7 % (0.0-1.0); Eosinophils Absolute Auto 0.29 K/mm3 (0.02-0.50); Eosinophils Percent Auto 6.4 % (1.0-6.0); Hematocrit 35.4 % (35.0-42.0); Hemoglobin 11.4 g/dL (11.7-13.8); Immature Granulocyte Absolute 0.02 K/mm3 (0.00-0.00); Immature Granulocyte Percent A 0.4 % (0.0-0.0); Lymphocytes Absolute Auto 1.16 K/mm3 (1.10-4.50); Lymphocytes Percent Auto 25.5 % (18.0-42.0); Mean Corpuscular HGB Conc 32.2 g/dL (32.0-36.0); Mean Corpuscular Hemoglobin 33.8 pg (27.0-31.0); Monocytes Absolute Auto 0.43 K/mm3 (0.10-0.90); Monocytes Percent Auto 9.5 % (2.0-11.0); Neutrophils Absolute Auto 2.6 K/mm3 (1.7-7.2); Neutrophils Percent Auto 57.5 % (50.0-70.0); Platelet Count Result 258 K/mm3 (150-420); Red Blood Count 3.37 M/mm3 (4.20-5.40); Red Cell Distribution Width 13.8 % (11.6-14.4); White Blood Count 4.6 K/mm3 (4.8-10.8)
[2021-11-19 07:49] LABS: Alanine Aminotransferase 30 U/L (14-59); Albumin Level 3.5 g/dL (3.4-5.0); Alkaline Phosphatase 89 U/L (46-116); Anion Gap 11 mmol/L (8-16); Aspartate Amino Transferase 31 U/L (15-37); Bilirubin,Total 0.3 mg/dL (0.00-1.00); Blood Urea Nitrogen 27 mg/dL (7-18); Calcium 9.1 mg/dL (8.5-10.1); Carbon Dioxide 25 mmol/L (21-32); Chloride 105 mmol/L (98-108); Estimated Glomerular Filt Rate > 60; Glucose 88 mg/dL (70-99); Osmolality Calculated 296 mOsm/kg (285-295); Potassium 4.2 mmol/L (3.5-5.1); Sodium 141 mmol/L (136-145); Total Protein 6.3 g/dL (6.4-8.2)
== END 2021-11-19 06:57 | disposition home or self-care (01) ==
LOC: CHSLAB 06:58
PROVIDERS: Visit Provider Family Medicine
DX: D64.9 Anemia, unspecified (principal); E03.9 Hypothyroidism, unspecified; E55.9 Vitamin D deficiency, unspecified
CPT/HCPCS: 36415; 80053; 85025

== ENCOUNTER 2021-11-27 15:59 | Outpatient (CLI) | payer OTHER, SELFPAY ==
--- NOTE | ~2021-11-27 | XR_ITS ---
XR_CERV2-3V_CR 11/27/2021 16:31 Indication: Inflammatory spondyloarthropathy. Procedure: 5 views of the cervical spine Comparison: 07/14/2021, 05/25/2020 and 10/19/2017 Findings: There is anterolisthesis at C4-5 and now measuring 10 mm compared with 8 mm on 10/19/2017. T here is fusion at C3-4 with severe degenerative disc disease at C4-5, C5-6 and C6-7. No acute fractur e is identified. No prevertebral soft tissue swelling. There is advanced multilevel uncinate and face t hypertrophy. Impression: 1: Severe cervical spondylosis with worsening anterolisthesis at C4-5 measuring 10 mm compared with 8 mm on 10/19/2017. Reviewed, dictated and finalized at location A. Impression: 1: Severe cervical spondylosis with worsening anterolisthesis at C4-5 measuring 10 mm compared with 8 mm on 10/19/2017.
== END 2021-11-27 16:00 | disposition home or self-care (01) ==
LOC: CHSIMG 16:01
PROVIDERS: PCP Family Medicine; Visit Provider Family Medicine
DX: M48.8X2 Other specified spondylopathies, cervical region (principal)
CPT/HCPCS: 72040

== ENCOUNTER 2021-12-30 12:13 | Outpatient (CLI) | payer OTHER, SELFPAY ==
--- NOTE | ~2021-12-30 | XR_ITS ---
XR chest 2V DATE: 12/30/2021 12:42 INDICATION: Cough, yellow sputum production for 5 days TECHNIQUE: AP and lateral chest in wheelchair COMPARISON: 09/04/2021 2 view chest FINDINGS: Normal heart size. Aortic calcification and minimal unfolding. No hilar or mediastinal enla rgement. No pulmonary infiltrate or consolidation, pleural effusion or pulmonary vascular congestion or pneumo thorax. Large hiatal hernia. Osteopenia. Thoracolumbar scoliosis. Rotator cuff atrophy on the right. Right glenohumeral osteoarthr itis. IMPRESSION: No active cardiac pulmonary disease Aortic atherosclerosis Large hiatal hernia Osteopenia Reviewed, dictated and finalized at location A.
== END 2021-12-30 12:14 | disposition home or self-care (01) ==
LOC: CHSIMG 12:15
PROVIDERS: PCP Family Medicine; Visit Provider Family Medicine
DX: R05.9 Cough, unspecified (principal)
CPT/HCPCS: 71046

== ENCOUNTER 2022-01-07 09:05 | Outpatient (CLI) | payer OTHER, SELFPAY ==
--- NOTE | ~2022-01-07 | MR_ITS ---
EXAMINATION: MR cervical spine wo con DATE: 01/07/2022 11:46 INDICATION: Nerve pain in neck and legs. TECHNIQUE: Magnetic resonance imaging (MRI) of the cervical spine was performed without intravenous c ontrast. Sequences included sagittal T2-weighted FSE, sagittal T2-weighted FS FSE, sagittal T1-weight ed FSE, axial MERGE, and axial T2-weighted FSE. COMPARISON: Cervical spine MRI 08/17/2021 FINDINGS: There is 22 degrees levoscoliosis of cervicothoracic spine. There is superior displacement of the dens into the foramen magnum. There is 2 mm retrolisthesis of C3 on C4. There is interbody fus ion at C3-C4. There is 7 mm anterolisthesis of C4 on C5 with endplate remodeling and 2/5 height loss of posterior C4 vertebral body and anterior C5 vertebral body. There is chronic anterior wedging of C 6 vertebral body. There is increased T2-weighted signal intensity in the spinal cord at C4-C5. The fo llowing disc levels are specifically discussed: C2-C3: The disc does not extend beyond the endplate margin. There is no uncovertebral joint osteoarth ritis. There is severe bilateral facet joint osteoarthritis. There is mild bilateral neural foraminal stenosis. There is no central canal stenosis. C3-C4: The disc does not extend beyond the endplate margin. There is mild left uncovertebral joint hy pertrophy. There is mild bilateral facet joint hypertrophy. There is mild bilateral neural foraminal stenosis. There is mild central canal stenosis. C4-C5: The disc does not extend beyond the endplate margin. There is severe bilateral uncovertebral j oint osteoarthritis. There is severe bilateral facet joint osteoarthritis. There is severe bilateral neural foraminal stenosis. There is severe central canal stenosis with ventral and dorsal indentation of spinal cord and increased signal in the cord. C5-C6: The disc is bulging. There is severe bilateral uncovertebral joint osteoarthritis. There is se everardo bilateral facet joint osteoarthritis. There is mild bilateral neural foraminal stenosis. There i s mild central canal stenosis. C6-C7: The disc is bulging. There is severe bilateral uncovertebral joint osteoarthritis. There is se everardo bilateral facet joint osteoarthritis. There is mild bilateral neural foraminal stenosis. There i s mild central canal stenosis. C7-T1: The disc does not extend beyond the endplate margin. There is no uncovertebral joint osteoarth ritis. There is severe bilateral facet joint osteoarthritis. There is mild bilateral neural foraminal stenosis. There is no central canal stenosis. IMPRESSION: 1. Stable severe cervical spondylosis. 2. 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 Reviewed, dictated and finalized at location B.
--- NOTE | ~2022-01-07 | MR_ITS ---
EXAMINATION: MR lumbar spine wo con DATE: 01/07/2022 11:47 INDICATION: Nerve pain in legs. TECHNIQUE: Magnetic resonance imaging (MRI) of the lumbar spine was performed without intravenous con trast. Sequences included sagittal T2-weighted FSE, sagittal T2-weighted FS FSE, sagittal T1-weighted FSE, and axial T2-weighted FSE. COMPARISON: None FINDINGS: There is 26 degrees dextroscoliosis of lumbar spine. There is 3 mm retrolisthesis of L2 on L3 and L3 on L4 and 4 mm anterolisthesis of L4 on L5. There is mildly decreased disc height at T12-L1 and L1-L2 and severely decreased disc height from L2-L3 through L5-S1 with endplate remodeling. The distal spinal cord signal intensity is normal. The conus medullaris is at L1. The following disc leve ls are specifically discussed: L1-L2: The disc is bulging and has an annular fissure. There is moderate right and mild left facet reddy int osteoarthritis. There is mild bilateral neural foraminal stenosis. There is mild central canal st enosis. L2-L3: The disc is bulging and has an annular fissure. There is mild bilateral facet joint osteoarthr itis. There is mild right and moderate left neural foraminal stenosis. There is mild central canal st enosis. L3-L4: The disc is bulging and has an annular fissure. There is severe bilateral facet joint osteoart hritis. There is mild bilateral neural foraminal stenosis. There is moderate central canal stenosis. L4-L5: The disc is bulging and has an annular fissure. There is severe right and moderate left facet joint osteoarthritis. There is moderate right and mild left neural foraminal stenosis. There is moder ate central canal stenosis. L5-S1: The disc is bulging and has an annular fissure. There is severe bilateral facet joint osteoart hritis. There is mild right neural foraminal stenosis. There is mild central canal stenosis. IMPRESSION: 1. Severe lumbar spondylosis. 2. Lumbar dextroscoliosis. Reviewed, dictated and finalized at location B.
== END 2022-01-07 09:06 | disposition home or self-care (01) ==
LOC: CHSIMG 09:08
PROVIDERS: PCP Family Medicine
DX: M54.2 Cervicalgia (principal); M54.89 Other dorsalgia
CPT/HCPCS: 72141; 72148

== ENCOUNTER 2022-04-21 12:19 | Outpatient (CLI) | payer OTHER, SELFPAY ==
--- NOTE | ~2022-04-21 | CT_ITS ---
EXAMINATION: CT cervical spine wo con DATE: 04/21/2022 13:18 INDICATION: Cervical radiculitis. TECHNIQUE: Computed tomography (CT) of the cervical spine was performed without intravenous contrast. Automated exposure control and iterative reconstruction technique were employed. The dose-length pro duct was 99.88 mGy-cm. COMPARISON: CT cervical spine 10/19/2017, MRI 01/07/2022, chest CT 11/15/2020 FINDINGS: Partially visualized in right lung upper lobe is a nodule measuring at least 9 mm. There is mild scarring at the lung apices. There is 22 degrees levoscoliosis of cervicothoracic spine. C1 and C2 left lateral masses are small. There is severe facet joint osteoarthritis bilaterally at C1-C2. T here is 2 mm retrolisthesis of C3 on C4 with interbody fusion. There is 8 mm anterolisthesis of C4 on C5 with severely decreased disc height, 2/5 height loss of C4 vertebral body posteriorly, and 2/5 he ight loss of C5 vertebral body anteriorly. There is 2 mm retrolisthesis of C5 on C6 and 2 mm anteroli sthesis of C7 on T1. There is severely decreased disc height at C5-C6 with interbody fusion. There is severely decreased disc height at C6-C7 with endplate remodeling. The following disc levels are spec ifically discussed: C2-C3: There is mild right uncovertebral joint osteoarthritis. There is severe bilateral facet joint osteoarthritis. There is mild bilateral neural foraminal stenosis. There is no central canal stenosis . C3-C4: There is mild bilateral uncovertebral joint hypertrophy. There is severe left facet joint oste oarthritis. There is ankylosis of right facet joint with mild hypertrophy. There is moderate right an d mild left neural foraminal stenosis. There is mild central canal stenosis. C4-C5: There is severe bilateral uncovertebral joint osteoarthritis. There is severe bilateral facet joint osteoarthritis. There is moderate bilateral neural foraminal stenosis. There is severe central canal stenosis. C5-C6: There is moderate bilateral uncovertebral joint hypertrophy. There is moderate bilateral facet joint osteoarthritis. There is mild bilateral neural foraminal stenosis. There is mild central canal stenosis. C6-C7: There is severe bilateral uncovertebral joint osteoarthritis. There is severe bilateral facet joint osteoarthritis. There is mild bilateral neural foraminal stenosis. There is mild central canal stenosis. C7-T1: There is no uncovertebral joint osteoarthritis. There is severe bilateral facet joint osteoart hritis. There is mild right neural foraminal stenosis. There is no central canal stenosis. IMPRESSION: 1. 9 mm right upper lobe pulmonary nodule suspicious for primary bronchogenic carcinoma. Noncontrast chest CT is recommended. 2. Severe cervical spondylosis. 3. Cervicothoracic levoscoliosis. Reviewed, dictated and finalized at location A. IMPRESSION: 1. 9 mm right upper lobe pulmonary nodule suspicious for primary bronchogenic c arcinoma. Noncontrast chest CT is recommended. 2. Severe cervical spondylosis. 3. Cervicothoracic levoscoliosis.
== END 2022-04-21 12:20 | disposition home or self-care (01) ==
LOC: CHSIMG 12:22
PROVIDERS: PCP Family Medicine
DX: M43.06 Spondylolysis, lumbar region (principal); M46.92 Unspecified inflammatory spondylopathy, cervical region; M54.12 Radiculopathy, cervical region
CPT/HCPCS: 72125

== ENCOUNTER 2022-05-20 06:28 | Outpatient (NON) | payer OTHER, SELFPAY ==
[2022-05-20 06:42] LABS: Hematocrit 27.5 % (35.0-42.0); Hemoglobin 8.4 g/dL (11.7-13.8); Mean Corpuscular HGB Conc 30.5 g/dL (32.0-36.0); Mean Corpuscular Hemoglobin 32.3 pg (27.0-31.0); Mean Corpuscular Volume 105.8 fL (78.0-102.0); Mean Platelet Volume 9.7 fl (9.2-11.8); Platelet Count Result 178 K/mm3 (150-420); Red Cell Distribution Width 15.9 % (11.6-14.4); White Blood Count 2.9 K/mm3 (4.8-10.8)
[2022-05-20 07:00] LABS: Band Neutrophils Percent 0 % (0-6); Eosinophils Absolute Manual 0.11 K/mm3 (0.02-0.5); Eosinophils Percent Manual 4 % (1-6); Lymphocytes Absolute Manual 0.92 K/mm3 (1.1-4.5); Lymphocytes Percent Manual 32 % (18-44); Monocytes Absolute Manual 0.11 K/mm3 (0.1-0.90); Monocytes Percent Manual 4 % (3-9); Neutrophils Absolute Manual 1.74 K/mm3 (1.7-7.2); Neutrophils Percent Manual 60 % (46-73); Platelet Estimate Adequate (Adequate); Total Cells Counted 100
[2022-05-20 07:11] LABS: Alanine Aminotransferase 29 U/L (14-59); Albumin Level 3.1 g/dL (3.4-5.0); Alkaline Phosphatase 77 U/L (46-116); Anion Gap 7 mmol/L (8-16); Aspartate Amino Transferase 21 U/L (15-37); Bilirubin,Total 0.3 mg/dL (0.00-1.00); Blood Urea Nitrogen 29 mg/dL (7-18); Calcium 9.1 mg/dL (8.5-10.1); Carbon Dioxide 25 mmol/L (21-32); Chloride 105 mmol/L (98-108); Estimated Glomerular Filt Rate > 60; Glucose 86 mg/dL (70-99); Osmolality Calculated 288 mOsm/kg (285-295); Potassium 4.1 mmol/L (3.5-5.1); Sodium 137 mmol/L (136-145); Thyroid Stimulating Hormone 0.04 uIU/mL (0.36-3.74); Total Protein 5.9 g/dL (6.4-8.2)
[2022-05-20 17:29] LABS: Occult Blood Negative (Negative)
[2022-05-20 17:55] LABS: Ferritin 294 ng/mL (8-252); Iron 70 ug/dL (50-170); Percent Iron Saturation 29 % (12-57); Vitamin B12 510 pg/mL (193-986)
[2022-05-20 17:58] LABS: Folic Acid > 20.0 ng/mL (8.6->20)
[2022-05-23 12:28] LABS: Vitamin D 25 Hydroxy 66 ng/mL (30-100)
== END 2022-05-20 06:29 | disposition home or self-care (01) ==
PROVIDERS: Visit Provider Family Medicine
DX: D50.9 Iron deficiency anemia, unspecified (principal); E53.8 Deficiency of other specified B group vitamins; D64.9 Anemia, unspecified; E55.9 Vitamin D deficiency, unspecified; M06.9 Rheumatoid arthritis, unspecified; E03.9 Hypothyroidism, unspecified
CPT/HCPCS: 36415; 80053; 82272; 82306; 82607; 82728; 82746; 83540; 83550; 84443; 85025

== ENCOUNTER 2022-05-22 16:48 | Outpatient (NON) | payer OTHER, SELFPAY ==
[2022-05-22 17:16] LABS: Occult Blood Negative (Negative)
== END 2022-05-22 16:49 | disposition home or self-care (01) ==
LOC: CHSLAB 16:50
PROVIDERS: Visit Provider Family Medicine
DX: D50.9 Iron deficiency anemia, unspecified (principal)
CPT/HCPCS: 82272

== ENCOUNTER 2022-05-23 06:44 | Outpatient (NON) | payer OTHER, SELFPAY ==
[2022-05-23 06:52] LABS: Occult Blood Negative (Negative)
== END 2022-05-23 06:45 | disposition home or self-care (01) ==
LOC: CHSLAB 06:46
PROVIDERS: Visit Provider Family Medicine
DX: D50.9 Iron deficiency anemia, unspecified (principal)
CPT/HCPCS: 82272

== ENCOUNTER 2022-05-23 10:04 | Outpatient (CLI) | payer OTHER, SELFPAY ==
--- NOTE | ~2022-05-23 | CT_ITS ---
EXAMINATION: CT chest high resolution wo ok DATE: 05/23/2022 10:36 INDICATION: Pulmonary nodule TECHNIQUE: Computed tomography (CT) of the chest was performed without intravenous contrast. The dose -length product (DLP) was 130.83 mGy-cm. Automated exposure control and iterative reconstruction tech [employer] were employed. COMPARISON: 11/15/2020 FINDINGS: There is moderate emphysema. There is a new 5 mm nodule of the right upper lobe on image 29 . There is a new 9 mm nodule of the right upper lobe on image 33. Additional smaller nodules are iden tified in the right upper lobe which are not typically seen on the comparison examination. A 4 mm nod ule of the right middle lobe is stable since the comparison examination. No pleural effusion or pneum othorax. There is mild dependent atelectasis. Although limited by respiratory motion artifact, there are new subpleural nodules in the left lower lobe (images 77 through 83). There is a new, large hiata l hernia. No pathologically enlarged thoracic lymph nodes are identified. The heart size is normal. C alcified coronary artery atherosclerosis is noted. There is severe thoracic spondylosis. IMPRESSION: 1. New nodules of the right upper lobe and left lower lobe which may be infectious or inflammatory. F ollow-up low-dose chest CT in three months is recommended. 2. New large hiatal hernia. Reviewed, dictated and finalized at location B. IMPRESSION: 1. New nodules of the right upper lobe and left lower lobe which may be infecti ous or inflammatory. Follow-up low-dose chest CT in three months is recommended . 2. New large hiatal hernia.
== END 2022-05-23 10:05 | disposition home or self-care (01) ==
LOC: CHSIMG 10:06
PROVIDERS: PCP Family Medicine; Visit Provider Family Medicine
DX: R91.1 Solitary pulmonary nodule (principal)
CPT/HCPCS: 71250

== ENCOUNTER 2022-06-24 06:28 | Outpatient (NON) | payer OTHER, SELFPAY ==
[2022-06-24 07:37] LABS: Ferritin 112 ng/mL (8-252); Iron 55 ug/dL (50-170); Percent Iron Saturation 19 % (12-57); Vitamin B12 615 pg/mL (193-986)
[2022-06-24 07:47] LABS: Folic Acid > 20.0 ng/mL (8.6->20)
== END 2022-06-24 06:29 | disposition home or self-care (01) ==
LOC: CHSLAB 06:30
PROVIDERS: Visit Provider Family Medicine
DX: D64.9 Anemia, unspecified (principal)
CPT/HCPCS: 36415; 82607; 82728; 82746; 83540; 83550

== ENCOUNTER 2022-07-30 13:13 | Outpatient (CLI) | payer OTHER, SELFPAY ==
--- NOTE | ~2022-07-30 | XR_ITS ---
XR chest 2V 07/30/2022 14:03 Indication: Preoperative. Anemia. Procedure: 2 view chest Comparison: 12/30/2021 Findings: There are bilateral calcified granulomas. Large hiatal hernia. Heart size normal. Chronic r ight basilar infiltrates which may represent atelectasis/scarring or atypical pneumonia. Hyperinflati on generalized osteopenia. Impression: 1: Chronic right basilar infiltrates which may represent atelectasis/scarring or atypical pneumonia. Reviewed, dictated and finalized at location B. SIGNAL WIRER Impression: 1: Chronic right basilar infiltrates which may represent atelectasis/scarring o r atypical pneumonia.
[2022-07-30 13:29] LABS: Basophils Absolute Auto 0.04 K/mm3 (0.00-0.10); Basophils Percent Auto 0.6 % (0.0-1.0); Eosinophils Percent Auto 1.5 % (1.0-6.0); Hematocrit 34.7 % (35.0-42.0); Hemoglobin 11.2 g/dL (11.7-13.8); Immature Granulocyte Absolute 0.02 K/mm3 (0.00-0.00); Immature Granulocyte Percent A 0.3 % (0.0-0.0); Lymphocytes Absolute Auto 0.93 K/mm3 (1.10-4.50); Lymphocytes Percent Auto 13.7 % (18.0-42.0); Mean Corpuscular HGB Conc 32.3 g/dL (32.0-36.0); Mean Corpuscular Hemoglobin 32.3 pg (27.0-31.0); Mean Platelet Volume 9.6 fl (9.2-11.8); Monocytes Absolute Auto 0.54 K/mm3 (0.10-0.90); Neutrophils Absolute Auto 5.2 K/mm3 (1.7-7.2); Neutrophils Percent Auto 75.9 % (50.0-70.0); Platelet Count Result 270 K/mm3 (150-420); Red Blood Count 3.47 M/mm3 (4.20-5.40); Red Cell Distribution Width 13.2 % (11.6-14.4); White Blood Count 6.8 K/mm3 (4.8-10.8)
[2022-07-30 13:44] LABS: INR 0.9; Partial Thromboplastin Time 24.8 SEC (23.90-30.70); Prothrombin Time 10.3 Seconds (9.50-12.10)
--- NOTE | 2022-07-30 13:58 | ECG_ITS ---
Measurements Intervals [place] Rate: 83 P: 72 [place]: 159 QRS: -11 QRSD: 88 T: 29 QT: 354 QTc: 418 Interpretive Statements SINUS RHYTHM WITH SINUS ARRHYTHMIA INCOMPLETE RIGHT BUNDLE BRANCH BLOCK MINIMAL Q WAVES- HIGH LATERAL LEADS ANTEROSEPTAL INFARCT, AGE INDETERMINATE BASELINE ARTIFACT- I, II, III, AVL, AVF ABNORMAL ECG COMPARED TO ECG 11/15/2020 21:04:40 NO SIGNIFICANT CHANGES Electronically Signed On 07-30-2022 15:37:23 STOCK RAISER by Patricio Bowers D.O.
[2022-07-30 14:12] LABS: Alanine Aminotransferase 16 U/L (14-59); Albumin Level 3.6 g/dL (3.4-5.0); Alkaline Phosphatase 99 U/L (46-116); Anion Gap 11 mmol/L (8-16); Aspartate Amino Transferase 20 U/L (15-37); Bilirubin,Total 0.2 mg/dL (0.00-1.00); Blood Urea Nitrogen 31 mg/dL (7-18); Calcium 10.1 mg/dL (8.5-10.1); Carbon Dioxide 24 mmol/L (21-32); Chloride 102 mmol/L (98-108); Estimated Glomerular Filt Rate 48; Glucose 155 mg/dL (70-99); Osmolality Calculated 293 mOsm/kg (285-295); Potassium 4.5 mmol/L (3.5-5.1); Sodium 137 mmol/L (136-145); Total Protein 6.8 g/dL (6.4-8.2)
== END 2022-07-30 13:14 | disposition home or self-care (01) ==
LOC: CHSLAB 13:15
PROVIDERS: PCP Family Medicine; Visit Provider Family Medicine
DX: D64.9 Anemia, unspecified (principal); Z79.899 Other long term (current) drug therapy; I25.2 Old myocardial infarction; Z98.890 Other specified postprocedural states; Z79.01 Long term (current) use of anticoagulants
CPT/HCPCS: 36415; 71046; 80053; 85025; 85610; 85730; 93005

== ENCOUNTER 2022-07-31 07:05 | Outpatient (NON) | payer OTHER, SELFPAY ==
[2022-07-31 07:29] LABS: Bilirubin Urine Negative (Negative); Blood Urine 2+ (Negative); Glucose Urine UA Negative (Negative); Ketones Urine Negative (Negative); Leukocyte Esterase Ur 3+ LEU/UL (Negative); Nitrate Urine Negative (Negative); Protein Urine Negative (Negative); Specific Grav Ur 1.015 (1.010-1.020); Urobilinogen Urine 0.2 mg/dL (0.2-1.0)
[2022-07-31 07:35] LABS: Add Urine Microscopic? YES; Appearance Urine Slightly Cloudy (Clear); Bacteria Urine 2+ /hpf; Color Urine Light Yellow (Yellow); Squamous Epithelial Cell Urine Few /hpf (Few); WBC Urine 16-20 /hpf (0-3)
== END 2022-07-31 07:06 | disposition home or self-care (01) ==
LOC: CHSLAB 07:06
PROVIDERS: PCP Family Medicine; Visit Provider Family Medicine
DX: Z01.818 Encounter for other preprocedural examination (principal); R82.90 Unspecified abnormal findings in urine
CPT/HCPCS: 81001; 87086; 87088

== ENCOUNTER 2022-08-09 18:51 | Emergency (ER) | payer OTHER, SELFPAY ==
[2022-08-09] VITALS (7 sets, daily range): BP systolic 126–151; BP diastolic 65–81; PULSE 85–91; RESP 16–20; TEMP 36.9–37.2; O2SAT 96–98
--- NOTE | ~2022-08-09 | CT_ITS ---
EXAMINATION: CT brain wo con DATE: 08/09/2022 19:30 INDICATION: syncope . TECHNIQUE: Computed tomography (CT) of the head was performed without intravenous contrast. The mA wa s adjusted according to patient size. Iterative reconstruction technique was employed. The dose-lengt h product was 605.33 mGy-cm. COMPARISON: 10/19/2017 FINDINGS: No acute intracranial hemorrhage or extra-axial fluid collection. No mass or herniation. Increased size of the ventricular system. No acute ischemic infarct. Unremarkable dural venous sinus attenuation. No acute osseous abnormality. Retention cyst or polyp in the sphenoid sinus, small right mastoid effusion, the remaining spaces are clear. Mild atrophy and chronic white matter change. Atherosclerotic intracranial calcification. IMPRESSION: No acute intracranial hemorrhage or large vessel infarct. Interval ventricular enlargement, likely du e to increased interval atrophy. Normal pressure hydrocephalus should also be considered in the diffe rential if there symptoms of urinary incontinence and/or gait abnormality. Reviewed, dictated and finalized at location K. LE SECURITY ARCHITECT IMPRESSION: No acute intracranial hemorrhage or large vessel infarct. Interval ventricular enlargement, likely due to increased interval atrophy. Normal pressure hydrocep halus should also be considered in the differential if there symptoms of urinar y incontinence and/or gait abnormality.
--- NOTE | ~2022-08-09 | XR_ITS ---
EXAMINATION: XR chest 1V portable Exam Date/Time: 08/09/2022 19:08 PROPOSAL CONSULTANT HISTORY: syncope Comparison: X-ray chest 07/30/2022, CT chest 05/23/2022. RESULT: Lines, tubes, and devices: Partially visualized cervical fusion hardware. Lungs and pleura: Senescent change. Calcified left lower lobe granuloma. Additional scattered nodula r opacities in the left upper lung are grossly stable. No focal consolidation, pneumothorax, or large effusion. Chronic right costophrenic angle blunting. Cardiomediastinal silhouette: Stable. Hiatal hernia. Other: No acute osseous or upper abdominal finding. IMPRESSION: No acute cardiopulmonary process. Small right effusion versus chronic pleural parenchymal scarring. R edemonstration of pulmonary nodules, prior follow-up recommendation is unchanged. Reviewed, dictated and finalized at location K. OSAL CONSULTANT IMPRESSION: No acute cardiopulmonary process. Small right effusion versus chronic pleural p arenchymal scarring. Redemonstration of pulmonary nodules, prior follow-up germaine mmendation is unchanged.
--- NOTE | ~2022-08-09 | CT_ITS ---
EXAMINATION: CT cervical spine wo con DATE: 08/09/2022 19:30 INDICATION: neck pain. NECK SURGERY 1 WEEK AGO. TECHNIQUE: Computed tomography (CT) of the cervical spine was performed without intravenous contrast. Automated exposure control and iterative reconstruction technique were employed. The dose-length pro duct was 134.45 mGy-cm. COMPARISON: 04/21/2022, CT chest 05/23/2022. FINDINGS: Vertebral Body Alignment: Intact. Residual grade 2 anterolisthesis at C4-5. Trace stable anterolisthe sis at C7-T1. Craniocervical and atlantoaxial alignment: Severe degenerative change. Alignment intact. Osseous structures/fracture: Partial C5 corpectomy with interbody device, in good position. Anterior hardware fusion spanning C4-C6 posterior fusion spanning C3-T2. Hardware is intact. Posterior decompr ession spanning C4-C7. Multilevel bone graft material overlies the bilateral facets. No evidence of a lytic or blastic process in the visualized spine. No evidence of acute fracture. C3-4 vertebral bod y fusion. Cervical soft tissues: The paraspinal soft tissues planes are maintained. Small right mastoid effusio n, no evidence of temporal bone fracture. Biapical pleural scarring. Stable right upper lobe nodule. Atherosclerotic calcifications. Degenerative changes: Moderate degenerative disc disease at C6-7. IMPRESSION: No acute fracture or traumatic malalignment in the cervical spine. No CT evidence of hardware-related complication. Right upper lobe pulmonary nodule, prior follow-up recommendations are unchanged. Reviewed, dictated and finalized at location K. VISITS NURSE IMPRESSION: No acute fracture or traumatic malalignment in the cervical spine. No CT eviden ce of hardware-related complication. Right upper lobe pulmonary nodule, prior f ollow-up recommendations are unchanged.
--- NOTE | 2022-08-09 19:01 | ECG_ITS ---
Measurements Intervals [place] Rate: 89 P: 70 [place]: 154 QRS: -23 QRSD: 89 T: 58 QT: 373 QTc: 456 Interpretive Statements SINUS RHYTHM BASELINE ARTIFACT POSSIBLE RIGHT VENTRICULAR CONDUCTION DELAY BORDERLINE ECG COMPARED TO ECG 07/30/2022 14:04:29 NO SIGNIFICANT CHANGES Electronically Signed On 08-10-2022 13:26:40 BLIND TEACHER by Crow Palma M.D.
[2022-08-09] MEDS: SODIUM CHLORIDE 0.9% IV 500 ML 999 ML IV CONT (19:33)
[2022-08-09] MEDS: MECLIZINE HCL 25 MG TABLET PO (19:35)
--- NOTE | 2022-08-09 19:42 | PC.NURSE ---
IV from EMS placement has infiltrated. RN stopped fluids and will attempt another IV.
[2022-08-09 19:44] LABS: Basophils Absolute Auto 0.03 K/mm3 (0.00-0.10); Basophils Percent Auto 0.3 % (0.0-1.0); Eosinophils Absolute Auto 0.06 K/mm3 (0.02-0.50); Eosinophils Percent Auto 0.5 % (1.0-6.0); Hematocrit 27.2 % (35.0-42.0); Hemoglobin 8.9 g/dL (11.7-13.8); Immature Granulocyte Absolute 0.07 K/mm3 (0.00-0.00); Immature Granulocyte Percent A 0.6 % (0.0-0.0); Lymphocytes Absolute Auto 0.58 K/mm3 (1.10-4.50); Mean Corpuscular HGB Conc 32.7 g/dL (32.0-36.0); Mean Corpuscular Hemoglobin 32.2 pg (27.0-31.0); Mean Corpuscular Volume 98.6 fL (78.0-102.0); Monocytes Absolute Auto 1.54 K/mm3 (0.10-0.90); Monocytes Percent Auto 13.3 % (2.0-11.0); Neutrophils Absolute Auto 9.3 K/mm3 (1.7-7.2); Neutrophils Percent Auto 80.3 % (50.0-70.0); Platelet Count Result 270 K/mm3 (150-420); Red Blood Count 2.76 M/mm3 (4.20-5.40); Red Cell Distribution Width 13.3 % (11.6-14.4); White Blood Count 11.6 K/mm3 (4.8-10.8)
[2022-08-09 19:57] LABS: Partial Thromboplastin Time 29.7 SEC (23.90-30.70); Prothrombin Time 11.2 Seconds (9.50-12.10)
[2022-08-09 20:02] LABS: Lactic Acid Reflex 0.6 mmol/L (0.4-2.0)
[2022-08-09 20:05] LABS: Alanine Aminotransferase 14 U/L (14-59); Albumin Level 2.8 g/dL (3.4-5.0); Alkaline Phosphatase 81 U/L (46-116); Anion Gap 9 mmol/L (8-16); Aspartate Amino Transferase 18 U/L (15-37); Bilirubin,Total 0.2 mg/dL (0.00-1.00); Blood Urea Nitrogen 18 mg/dL (7-18); Calcium 8.6 mg/dL (8.5-10.1); Carbon Dioxide 26 mmol/L (21-32); Chloride 100 mmol/L (98-108); Estimated CRCL calculation 39 ml/min; Estimated Glomerular Filt Rate > 60; Glucose 120 mg/dL (70-99); Magnesium 1.6 mg/dL (1.8-2.4); NT Pro B Type Natriuretic Pept 420 pg/mL (0-450); Osmolality Calculated 282 mOsm/kg (285-295); Potassium 3.8 mmol/L (3.5-5.1); Sodium 135 mmol/L (136-145); Total Protein 6.5 g/dL (6.4-8.2)
--- NOTE | 2022-08-09 20:54 | ED.DIZZY ---
HPI - Dizziness General Chief Complaint: Syncope Stated Complaint: syncope Time Seen by Provider: 08/09/22 19:00 Source: patient and EMS Mode of arrival: ambulatory Limitations: no limitations History of Present Illness HPI Narrative: This is a 77-year-old shelter patient presents via EMS after she was at the shelter and she was being transferred to her bed and became syncopal for few seconds witnessed by staff with no seizure activity the patient has a history of dizziness and recent cervical spine surgery approximately 1 week ago otherwise there is no headache no blurry vision currently back to her baseline with no nausea or vomiting no chest pain no shortness of breath. MD elicited complaint: dizziness Onset (ago): hour(s) Timing: sudden onset Severity: mild Description: sense of movement and room spinning Related Data Home Medications Medication Instructions Recorded Confirmed calcium carbonate 600 mg calcium 600 mg PO BID 11/22/20 (1,500 mg) tablet cholecalciferol (vitamin D3) 50 50 mcg PO DAILY 01/07/21 mcg (2,000 unit) capsule diclofenac sodium 1 % topical gel 2 g topical QID 01/07/21 (Voltaren) polyethylene glycol 3350 17 17 g PO DAILY 01/07/21 gram/dose oral powder (Miralax) polyvinyl alcohol 1.4 % eye drops 2 drp EACH EYE .Q2hrs PRN 01/07/21 (Artificial Tears (polyvinyl alcohol)) Allergies Allergy/AdvReac Type Severity Reaction Status Date / Time clindamycin Allergy Severe RASH Verified 08/09/22 19:22 amoxicillin [Augmentin] Allergy Intermediate Unknown Verified 08/09/22 19:22 clavulanic acid [Augmentin] Allergy Intermediate Unknown Verified 08/09/22 19:22 Sulfa (Sulfonamide Allergy Intermediate Unknown Verified 08/09/22 19:22 Antibiotics) Review of Systems Review of Systems: All systems reviewed & are unremarkable except as noted in HPI and below PMFSH Past Medical History Medical History Cervical arthritis Chronic low back pain Conjunctivitis Emphysema lung Hypothyroidism Ingrown toenail Iron deficiency anemia Osteopenia Radial tunnel syndrome Rheumatoid arthritis 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 The patient stop taking seizure medicine after about 10 years and has not had seizures. This occurred during her child. Shoulder arthritis Weight gain Surgical History Surgical History H/O cervical polypectomy History of appendectomy Hx of total knee arthroplasty Family History Family History Mother Hypertension Myocardial infarction Brother Hypertension Diabetes mellitus Father Acute myocardial infarction Social History Social History Social History: The patient is a lifelong nonsmoker. 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 The patient does not use alcohol, marijuana, or illicit drugs. She is single and has never been . The patient has no children. She desires to be a full code. She does not have a durable power trust and estates attorney for healthcare. She lives home alone. Smoking status: Never smoker Alcohol intake: former Substance use: never Gender identity (if verbalized by the patient): Female Sexual Orientation (if Verbalized by the Patient): Straight or Heterosexual Spiritual care concerns: No Exam Const: General: healthy appearing Nutritional Appearance: well nourished Orientation/consciousness: patient oriented x3 Limitations: no limitations HENMT: Head: normal to inspection Face/Nose/Sinus: Normal external nose present Face and sinus: normal facial exam Mouth: Yes Normal oral and palatal mucosa present Eyes: Conjunctivae: conjunctivae normal EOM: EOMs intact bilaterally Neck: Neck: normal visual inspection, no lymphadenopathy and no
--- NOTE | 2022-08-09 21:17 | PC.NURSE ---
Due to pt being in a c-collar due to neck surgery, pt is unable to sit in a wheelchair and will need to be transported back via a stretcher and ambulance. RN calls [facility] for a S ambulance.
== END 2022-08-09 21:25 | disposition home or self-care (01) ==
PROVIDERS: Emergency Provider Emergency Medicine; PCP Family Medicine
DX: R55 Syncope and collapse (principal); E03.9 Hypothyroidism, unspecified
CPT/HCPCS: 36415; 70450; 71045; 72125; 80053; 83605; 83735; 83880; 85025; 85610; 85730; 93005; 96360; 99284; A9270; J7040

== ENCOUNTER 2022-08-13 14:52 | Outpatient (CLI) | payer OTHER, SELFPAY ==
--- NOTE | ~2022-08-13 | US_ITS ---
EXAMINATION: US venous doppler UE RT DATE: 08/13/2022 15:47 INDICATION: Right upper extremity swelling, recent surgery TECHNIQUE: Grayscale ultrasound images without and with compression and Doppler ultrasound images of the right upper extremity veins were obtained. COMPARISON: None.. FINDINGS: A neck brace prevents evaluation of the right internal jugular and proximal subclavian vein. The visu alized portions of the brain mid and distal subclavian vein, axillary vein, brachial veins, basilic v ein, cephalic vein, radial vein, and ulnar vein are patent. IMPRESSION: 1. A neck brace prevents evaluation of the right internal jugular and proximal subclavian vein. 2. No deep venous thrombosis in the visualized veins. Reviewed, dictated and finalized at location K. ORATE QUALITY MANAGER
== END 2022-08-13 14:53 | disposition home or self-care (01) ==
LOC: CHSIMG 14:54
PROVIDERS: PCP Family Medicine; Visit Provider Family Medicine
DX: M79.89 Other specified soft tissue disorders (principal)
CPT/HCPCS: 93971

== ENCOUNTER 2022-11-11 06:27 | Outpatient (NON) | payer OTHER, SELFPAY ==
[2022-11-11 07:19] LABS: Hematocrit 29.9 % (35.0-42.0); Hemoglobin 9.2 g/dL (11.7-13.8); Mean Corpuscular HGB Conc 30.8 g/dL (32.0-36.0); Mean Corpuscular Volume 91.2 fL (78.0-102.0); Mean Platelet Volume 9.9 fl (9.2-11.8); Platelet Count Result 271 K/mm3 (150-420); Red Blood Count 3.28 M/mm3 (4.20-5.40); Red Cell Distribution Width 17.2 % (11.6-14.4)
[2022-11-11 07:36] LABS: Alanine Aminotransferase 19 U/L (14-59); Albumin Level 3.2 g/dL (3.4-5.0); Alkaline Phosphatase 109 U/L (46-116); Anion Gap 5 mmol/L (8-16); Aspartate Amino Transferase 22 U/L (15-37); Bilirubin,Total 0.3 mg/dL (0.00-1.00); Blood Urea Nitrogen 23 mg/dL (7-18); Calcium 9.7 mg/dL (8.5-10.1); Carbon Dioxide 29 mmol/L (21-32); Chloride 104 mmol/L (98-108); Estimated Glomerular Filt Rate > 60; Glucose 83 mg/dL (70-99); Osmolality Calculated 288 mOsm/kg (285-295); Potassium 4.2 mmol/L (3.5-5.1); Sodium 138 mmol/L (136-145)
[2022-11-11 07:41] LABS: Band Neutrophils Percent 0 % (0-6); Eosinophils Absolute Manual 0.24 K/mm3 (0.02-0.5); Eosinophils Percent Manual 6 % (1-6); Lymphocytes Absolute Manual 1.16 K/mm3 (1.1-4.5); Lymphocytes Percent Manual 29 % (18-44); Monocytes Absolute Manual 0.52 K/mm3 (0.1-0.90); Monocytes Percent Manual 13 % (3-9); Neutrophils Absolute Manual 2.08 K/mm3 (1.7-7.2); Neutrophils Percent Manual 52 % (46-73); Total Cells Counted 100
[2022-11-11 07:42] LABS: Platelet Estimate Adequate (Adequate)
== END 2022-11-11 06:28 | disposition home or self-care (01) ==
LOC: CHSLAB 06:28
PROVIDERS: Visit Provider Family Medicine
DX: D50.8 Other iron deficiency anemias (principal); J43.9 Emphysema, unspecified; M06.9 Rheumatoid arthritis, unspecified
CPT/HCPCS: 36415; 80053; 85025

== ENCOUNTER 2022-11-19 13:10 | Outpatient (NON) | payer OTHER, SELFPAY | END 2022-11-19 13:11 | disposition home or self-care (01) | LOC: CHSLAB 13:11 | PROVIDERS: PCP Family Medicine; Visit Provider Family Medicine | DX: L85.9 Epidermal thickening, unspecified (principal) | CPT/HCPCS: 88305 ==

== ENCOUNTER 2023-04-30 12:37 | Outpatient (CLI) | payer OTHER, SELFPAY ==
--- NOTE | ~2023-04-30 | XR_ITS ---
EXAMINATION: XR chest 2V 04/30/2023 14:30 INDICATION: Fever PROCEDURE: 2 view chest COMPARISON: Comparison to multiple prior studies sequentially, with oldest reviewed study dated 08/08. FINDINGS: The lungs are clear. The cardiomediastinal silhouette is within normal limits. There are no pleural effusions. There is no pneumothorax suspected. There are surgical changes of the cervico thoracic junction partially visualized. Large hiatal hernia. IMPRESSION: 1: NO ACUTE CARDIOPULMONARY DISEASE. 2: Large hiatal hernia. Reviewed, dictated and finalized at location L.
[2023-04-30 12:47] LABS: Hematocrit 31.4 % (35.0-42.0); Hemoglobin 10.3 g/dL (11.7-13.8); Mean Corpuscular HGB Conc 32.8 g/dL (32.0-36.0); Mean Corpuscular Hemoglobin 30.4 pg (27.0-31.0); Mean Corpuscular Volume 92.6 fL (78.0-102.0); Mean Platelet Volume 9.8 fl (9.2-11.8); Platelet Count Result 271 K/mm3 (150-420); Red Blood Count 3.39 M/mm3 (4.20-5.40); Red Cell Distribution Width 13.1 % (11.6-14.4); White Blood Count 11.4 K/mm3 (4.8-10.8)
[2023-04-30 12:50] LABS: Influenza A QL RT-PCR Negative (Negative); Influenza B QL RT-PCR Negative (Negative); SARS-CoV-2 RNA PCR Negative (Negative)
[2023-04-30 12:52] LABS: RSV RNA, RT-PCR Negative (Negative)
[2023-04-30 13:04] LABS: Alanine Aminotransferase 20 U/L (14-59); Alkaline Phosphatase 113 U/L (46-116); Anion Gap 10 mmol/L (8-16); Aspartate Amino Transferase 25 U/L (15-37); Bilirubin,Total 0.4 mg/dL (0.00-1.00); Blood Urea Nitrogen 24 mg/dL (7-18); Calcium 9.2 mg/dL (8.5-10.1); Carbon Dioxide 24 mmol/L (21-32); Chloride 96 mmol/L (98-108); Estimated Glomerular Filt Rate > 60; Glucose 98 mg/dL (70-99); Osmolality Calculated 274 mOsm/kg (285-295); Potassium 4.1 mmol/L (3.5-5.1); Sodium 130 mmol/L (136-145)
[2023-04-30 13:26] LABS: Band Neutrophils Percent 3 % (0-6); Basophils Percent Manual 0 % (0-1); Eosinophils Percent Manual 0 % (1-6); Lymphocytes Absolute Manual 0.91 K/mm3 (1.1-4.5); Lymphocytes Percent Manual 8 % (18-44); Monocytes Absolute Manual 1.14 K/mm3 (0.1-0.90); Monocytes Percent Manual 10 % (3-9); Neutrophils Absolute Manual 9.34 K/mm3 (1.7-7.2); Neutrophils Percent Manual 79 % (46-73); Platelet Estimate Adequate (Adequate); Total Cells Counted 100
[2023-04-30 17:29] LABS: Appearance Urine Turbid (Clear); Color Urine Light Yellow (Yellow)
[2023-04-30 17:30] LABS: Add Urine Microscopic? YES; Bilirubin Urine Negative (Negative); Blood Urine 3+ (Negative); Glucose Urine UA Negative (Negative); Ketones Urine Negative (Negative); Leukocyte Esterase Ur 3+ (Negative); Nitrate Urine Positive (Negative); Protein Urine 2+ (Negative); Specific Grav Ur 1.015 (1.010-1.020); Urobilinogen Urine 0.2 mg/dL (0.2-1.0)
[2023-04-30 17:31] LABS: Bacteria Urine 1+ /hpf; Mucus Urine Moderate /lpf; Renal Epithelial Cells Urine Few /hpf; Squamous Epithelial Cell Urine Few /hpf (Few); WBC Urine >75 /hpf (0-3)
== END 2023-04-30 12:38 | disposition home or self-care (01) ==
PROVIDERS: PCP Family Medicine; Visit Provider Family Medicine
DX: R50.9 Fever, unspecified (principal); K44.9 Diaphragmatic hernia without obstruction or gangrene; N39.0 Urinary tract infection, site not specified; Z79.899 Other long term (current) drug therapy
CPT/HCPCS: 36415; 71046; 80053; 81001; 85025; 87086; 87088; 87637

== ENCOUNTER 2023-05-26 06:30 | Outpatient (NON) | payer OTHER, SELFPAY ==
[2023-05-26 06:55] LABS: Hematocrit 31.4 % (35.0-42.0); Hemoglobin 10.1 g/dL (11.7-13.8); Mean Corpuscular HGB Conc 32.2 g/dL (32.0-36.0); Mean Corpuscular Hemoglobin 30.2 pg (27.0-31.0); Mean Platelet Volume 9.5 fl (9.2-11.8); Platelet Count Result 259 K/mm3 (150-420); Red Blood Count 3.34 M/mm3 (4.20-5.40); Red Cell Distribution Width 13.6 % (11.6-14.4)
[2023-05-26 07:19] LABS: Alanine Aminotransferase 15 U/L (14-59); Alkaline Phosphatase 96 U/L (46-116); Anion Gap 8 mmol/L (8-16); Aspartate Amino Transferase 23 U/L (15-37); Bilirubin,Total 0.2 mg/dL (0.00-1.00); Blood Urea Nitrogen 15 mg/dL (7-18); Calcium 9.6 mg/dL (8.5-10.1); Carbon Dioxide 26 mmol/L (21-32); Chloride 101 mmol/L (98-108); Estimated Glomerular Filt Rate > 60; Glucose 81 mg/dL (70-99); Osmolality Calculated 279 mOsm/kg (285-295); Potassium 4.3 mmol/L (3.5-5.1); Sodium 135 mmol/L (136-145); Thyroid Stimulating Hormone 29.31 uIU/mL (0.36-3.74); Total Protein 5.6 g/dL (6.4-8.2)
[2023-05-26 07:32] LABS: Band Neutrophils Percent 0 % (0-6); Basophils Percent Manual 0 % (0-1); Eosinophils Absolute Manual 0.16 K/mm3 (0.02-0.5); Eosinophils Percent Manual 4 % (1-6); Lymphocytes Absolute Manual 1.32 K/mm3 (1.1-4.5); Lymphocytes Percent Manual 33 % (18-44); Monocytes Percent Manual 15 % (3-9); Neutrophils Absolute Manual 1.92 K/mm3 (1.7-7.2); Neutrophils Percent Manual 48 % (46-73); Platelet Estimate Adequate (Adequate); Total Cells Counted 100
[2023-06-02 13:12] LABS: Vitamin D 25 Hydroxy 36 ng/mL (30-100)
== END 2023-05-26 06:31 | disposition home or self-care (01) ==
LOC: CHSLAB 06:34
PROVIDERS: Visit Provider Family Medicine
DX: D50.8 Other iron deficiency anemias (principal); E55.9 Vitamin D deficiency, unspecified; E03.9 Hypothyroidism, unspecified
CPT/HCPCS: 36415; 80053; 82306; 84443; 85025

== ENCOUNTER 2023-07-23 08:54 | Outpatient (CLI) | payer OTHER, SELFPAY ==
--- NOTE | ~2023-07-23 | XR_ITS ---
EXAMINATION: XR barium swallow modified DATE: 07/23/2023 09:57 INDICATION: Dysphagia. TECHNIQUE: The patient was given barium-containing material of multiple consistencies to swallow by arya sharma speech pathologist while I performed fluoroscopy. Dose-area product was [id number] Gy-cm2. FINDINGS: Oral Stage: Within functional limits Pharyngeal Phase: There is moderate to severe vallecular residue and mild piriform sinus residue. Decreased laryngeal elevation/excursion Decreased epiglottic inversion Cervical/Esophageal Stage: Within functional limits IMPRESSION: Modified esophagram findings as above. Please refer to the speech therapy report [facility]. Reviewed, dictated and finalized at Location A. Reviewed, dictated and finalized at location L. ER LAPPER IMPRESSION: Modified esophagram findings as above. Please refer to the speech t herapy report for specific recommendations.
--- NOTE | 2023-07-23 16:47 | REHSTMBS ---
Assessment and note entered by Ning Hicks, CLINICAL RESEARCH SPECIALIST Modified Barium Swallow Evaluation Diagnosis Dysphagia R13.10 Subjective Information Patient was referred for a modified barium swallow study due to concerns with swallowing. Patient reported that she has had difficulty swallowing solids for months now. She often feels that the food gets stuck in her throat. She reported that [facility] but does not currently. Feeding Type Recommended Oral Food Consistency Minced and Moist, Level 5 Liquid Consistency Thin (0) Treatment Recommendations Effortful Swallow,Laryngeal Elevation Exerc,Tongue Base Exercise,Vocal Fold Adduction Exer ST Clinical Summary Patient was referred for an swallow study due to concerns/difficulty with swallowing. Patient reported that she has been having difficulty swallowing solids for months now. She often feels that they get stuck in her throat. Patient tolerated thin barium, enedelia cracker with barium pudding coating and pudding mixed with barium paste. Patient presented with decrease coordination of oral motor movement and was edentulous impacting mastication strength/ability . Patient presented with moderate/severe vallecular residue and mild pyriform residue post deglutition with all solid trials. Patient required a liquid wash with water to clear residue . No penetration or aspiration was noted with all consistencies trials. Patient tolerated thin fluids with no difficulty. Decreased laryngeal elevation/excursion and decreased epiglottic inversion (with solid trials) was noted. Patient reported that she has had several spinal/neck surgeries in the past. Patient could potentially have scar tissure impacting laryngeal elevation and epiglottic movement. Recommendation for level 5 minced and moist solids and level 0 thin fluids. Recommendation for speech therapy to target oral motor/laryngeal exercises, diet modification/ training and compensatory techniques to improve airway protection. Evaluation only at this time.
== END 2023-07-23 08:55 | disposition home or self-care (01) ==
LOC: CHSIMG 08:55
PROVIDERS: PCP Family Medicine; Visit Provider Family Medicine
DX: R13.10 Dysphagia, unspecified (principal)
CPT/HCPCS: 92611

== ENCOUNTER 2023-11-05 07:29 | Outpatient (NON) | payer OTHER, SELFPAY | END 2023-11-05 07:30 | disposition home or self-care (01) | LOC: CHSLAB 07:30 | PROVIDERS: PCP Family Medicine; Visit Provider Family Medicine | DX: E03.9 Hypothyroidism, unspecified (principal) | CPT/HCPCS: 36415; 84443 ==

== ENCOUNTER 2023-11-24 07:31 | Outpatient (NON) | payer OTHER, SELFPAY ==
[2023-11-24 07:53] LABS: Hematocrit 31.1 % (35.0-42.0); Hemoglobin 10.3 g/dL (11.7-13.8); Mean Corpuscular HGB Conc 33.1 g/dL (32-36); Mean Corpuscular Hemoglobin 29.8 pg (27.0-31.0); Mean Corpuscular Volume 89.9 fL (78.0-102.0); Mean Platelet Volume 9.6 fl (9.2-11.8); Platelet Count Result 253 K/mm3 (150-420); Red Blood Count 3.46 M/mm3 (4.20-5.40); Red Cell Distribution Width 15.2 % (11.6-14.4); White Blood Count 4.4 K/mm3 (4.8-10.8)
[2023-11-24 08:04] LABS: Alanine Aminotransferase 21 U/L (14-59); Albumin Level 3.1 g/dL (3.4-5.0); Alkaline Phosphatase 106 U/L (46-116); Anion Gap 9 mmol/L (8-16); Aspartate Amino Transferase 30 U/L (15-37); Bilirubin,Total 0.3 mg/dL (0.00-1.00); Blood Urea Nitrogen 14 mg/dL (7-18); Calcium 9.3 mg/dL (8.5-10.1); Carbon Dioxide 26 mmol/L (21-32); Chloride 97 mmol/L (98-108); Estimated Glomerular Filt Rate > 60; Glucose 80 mg/dL (70-99); Osmolality Calculated 273 mOsm/kg (285-295); Potassium 4.4 mmol/L (3.5-5.1); Sodium 132 mmol/L (136-145)
[2023-11-24 08:22] LABS: Band Neutrophils Percent 0 % (0-6); Basophils Absolute Manual 0.04 K/mm3 (0-0.1); Basophils Percent Manual 1 % (0-1); Eosinophils Percent Manual 7 % (1-6); Lymphocytes Absolute Manual 1.18 K/mm3 (1.1-4.5); Lymphocytes Percent Manual 27 % (18-44); Monocytes Percent Manual 16 % (3-9); Neutrophils Absolute Manual 2.15 K/mm3 (1.7-7.2); Neutrophils Percent Manual 49 % (46-73); Total Cells Counted 100
[2023-11-24 08:24] LABS: Platelet Estimate Adequate (Adequate)
== END 2023-11-24 07:32 | disposition home or self-care (01) ==
LOC: CHSLAB 07:32
PROVIDERS: Visit Provider Family Medicine
DX: D50.8 Other iron deficiency anemias (principal); M06.9 Rheumatoid arthritis, unspecified; G40.89 Other seizures
CPT/HCPCS: 36415; 80053; 85025

== ENCOUNTER 2024-11-02 13:57 | Outpatient (CLI) | payer MEDICARE, SELFPAY ==
[2024-11-02 14:20] LABS: Hematocrit 29.5 % (35.0-42.0); Hemoglobin 9.6 g/dL (11.7-13.8); Mean Corpuscular HGB Conc 32.5 g/dL (32-36); Mean Corpuscular Hemoglobin 29.9 pg (27.0-31.0); Mean Corpuscular Volume 91.9 fL (78.0-102.0); Mean Platelet Volume 8.4 fl (9.2-11.8); Platelet Count Result 301 K/mm3 (150-420); Red Blood Count 3.21 M/mm3 (4.20-5.40); Red Cell Distribution Width 13.2 % (11.6-14.4); White Blood Count 5.1 K/mm3 (4.8-10.8)
[2024-11-02 15:52] LABS: Anion Gap 9 mmol/L (4-12); Blood Urea Nitrogen 23 mg/dL (7-18); Carbon Dioxide 26 mmol/L (21-32); Chloride 95 mmol/L (98-108); Estimated Glomerular Filt Rate > 60; Glucose 95 mg/dL (70-99); Osmolality Calculated 273 mOsm/kg (285-295); Potassium 4.7 mmol/L (3.5-5.1); Sodium 130 mmol/L (136-145)
== END 2024-11-02 13:58 | disposition home or self-care (01) ==
PROVIDERS: PCP Family Medicine; Visit Provider Family Medicine
DX: M06.9 Rheumatoid arthritis, unspecified (principal); M46.92 Unspecified inflammatory spondylopathy, cervical region; J43.9 Emphysema, unspecified; E55.9 Vitamin D deficiency, unspecified
CPT/HCPCS: 36415; 80048; 85027